=== PATIENT | male | born 1930 | race Caucasian/White ===

== ENCOUNTER 2017-03-21 20:43 | Inpatient (IN) | payer OTHER ==
[~2017-03-21] VITALS: Ht 162.6 cm; Wt 71.0 kg
[~2017-03-21 20:43] MED LIST: ASPI81TA28 PO; AVD5 PO; BIMA0.01 OPL; BRIM0.2S OPB; LOSA1TAB PO; NTRSLP4 SL; PRDFOPS OP; TRSOPS2 OP
--- NOTE | 2017-03-21 22:08 | EMERGENCY ROOM VISIT NOTE ---
History Report prepared by Pio: Tabitha Bolaños Under the Supervision of: Venu ValderramaO. First contact with patient: 21:40 Chief Complaint: ABDOMINAL PAIN Stated Complaint: HURT STOMACH,CONSTIPATION History of Present Illness The patient is an 86 year old male who presents to the Emergency Room with complaints of persistent abdominal pain that began 2 weeks ago. He currently rates his discomfort as a 2/10 in severity. The patient reports that two weeks ago his was taken to reside in a retirement. He states that he became nervous for her leaving, and he developed left chest pain, abdominal pain, and constipation. The patient states that constipation is a chronic problem for him , noting that he takes Miralax daily. He states that he has not had a bowel movement in four days. The patient states that his chest pain has been waxing and waning, noting that aspirin alleviated his symptoms, but nitroglycerin has not. He states that the chest pain has been persistent for two days. The patient reports radiating pain to his left shoulder and notes pain radiating into back. He denies any pain radiating down his left arm. The patient reports nausea today. He reports a cardiac history. The patient denies any fever, chills, shortness of breath or lower extremity swelling. He reports difficulty urinating. Source of History: patient Onset: 2 weeks ago Position: abdomen Symptom Intensity: 2/10 Timing: other (persistent) Associated Symptoms: + chest pain, + nausea, + back pain, + urinary symptoms (difficulty urinating), No fevers, No chills, No SOB Note: Associated Symptoms: left shoulder pain, constipation. Review of Systems See HPI for pertinent positives & negatives. A total of 10 systems reviewed and were otherwise negative. Past Medical & Surgical Medical Problems: (1) Aortic Valve Disorder (2) Diverticulitis (3) Diverticulosis of sigmoid colon (4) Elevated troponin I level (5) Hyperlipidemia (6) Hypertension Nos (7) Hypothyroidism Nos Surgical Problems: (1) Cholecystectomy (2) Hernia repair Family History Patient reports no known family medical history. Social History Smoking Status: Never Smoker Alcohol Use: none Drug Use: none Marital Status: Housing Status: lives with significant other Occupation Status: retired Current/Historical Medications Scheduled Aspirin (Aspirin Ec), 81 MG PO DAILY Bimatoprost (Lumigan), 1 DROPS OPL HS Brimonidine Tartrate-Timolol M (Combigan), 1 DROP OPB BID Dorzolamide Hcl (Trusopt Oph), 1 DROPS OP BID Fluocinonide (Fluocinonide), 1 APPLN TOP BID Losartan Potassium (Cozaar), 1 TAB PO DAILY Polyethylene Glycol 3350 (Miralax), 17 GM PO QPM Polyethylene Glycol-Propylene (Systane), 1 DROPS OP DAILY Prednisolone Acetate (Ophth) (Prednisolone Acetate), 1 DROP OPL QID Prednisolone Acetate (Ophth) (Prednisolone Acetate), 2 DROP OPR DAILY Scheduled PRN Nitroglycerin (Nitrostat), 0.4 MG SL UD PRN for Chest Pain Allergies Coded Allergies: Amlodipine (Verified Allergy, Unknown, unknown, 09/16/16) Enalapril (Verified Allergy, Unknown, unknown, 09/16/16) Sulfa Drugs (Verified Adverse Reaction, Mild, JUST DID NOT FEEL LIKE HIMSELF, 09/16/16) Physical Exam Vital Signs Date Time Temp Pulse Resp B/P (MAP) Pulse Ox O2 Delivery O2 Flow Rate FiO2 03/22/17 02:52 72 16 139/81 98 Room Air 03/21/17 23:16 81 18 145/87 95 Room Air 03/21/17 20:57 36.7 74 20 153/92 95 Room Air Physical Exam GENERAL: alert, well appearing, well nourished, no distress, non-toxic EYE EXAM: normal conjunctiva, PERRL and EOM's grossly intact OROPHARYNX: no exudate, no erythema, lips, buccal mucosa, and tongue normal and mucous membranes are moist NECK: supple, no nuchal rigidity, no adenopathy, non-tender LUNGS: Clear to auscultation. Normal chest wall mechanics HEART: Systolic ejection murmur, S1 normal and S2 normal ABDOMEN: Mild generalized abdominal discomfort, dull to percussion, abdomen soft , normo-active bowel sounds, no masses, no rebound or guarding. BACK: Back is symmetrical on inspection and there is no deformity, no midline tenderness, no CVA tenderness. SKIN: no rashes and no bruising UPPER EXTREMITIES: upper extremities are grossly normal. LOWER EXTREMITIES: Trace pitting edema. NEURO EXAM: Normal sensorium, cranial nerves II-XII grossly intact, normal speech, no gross weakness of arms, no gross weakness of legs. Medical Decision & Procedures ER Provider Diagnostic Interpretation: Chest x-ray interpreted by me, pending radiology review: cardiomegaly, prominent aortic silhouette, no effusion, increased interstitial markings bilaterally, no focal consolidation, similar compared to prior CT abdomen and pelvis: Mild peripancreatic haziness that may be from pancreatitis. No pseudocyst. Cholecystectomy. 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 Syed megaly. Small fat-containing ventral inguinal hernias. Old granulomatous disease. Right renal cyst. 2 small to characterize low attenuation foci in the kidneys. Mildly enlarged prostate. Colonic diverticula without diverticulitis. Unremarkable appendix. radiologist: Ryann Arreola M.D. study read at 00:47 Laboratory Results 03/21/17 23:05 Red Blood Count 4.16, Mean Corpuscular Volume 94.5, Mean Corpuscular Hemoglobin 31.3, Mean Corpuscular Hemoglobin Concent 33.1, Mean Platelet Volume 9.1, Neutrophils (%) (Auto) 74.1, Lymphocytes (%) (Auto) 13.5, Monocytes (%) (Auto) 10.2, Eosinophils (%) (Auto) 1.9, Basophils (%) (Auto) 0.2, Neutrophils # (Auto ) 7.35, Lymphocytes # (Auto) 1.34, Monocytes # (Auto) 1.01, Eosinophils # (Auto ) 0.19, Basophils # (Auto) 0.02 03/21/17 23:05 Test 03/21/17 23:05 03/21/17 23:50 White Blood Count 9.92 K/uL (4.8-10.8) Red Blood Count 4.16 M/uL (4.7-6.1) Hemoglobin 13.0 g/dL (14.0-18.0) Hematocrit 39.3 % (42-52) Mean Corpuscular Volume 94.5 fL (80-100) Mean Corpuscular Hemoglobin 31.3 pg (25-34) Mean Corpuscular Hemoglobin Concent 33.1 g/dl (32-36) Platelet Count 259 K/uL (130-400) Mean Platelet Volume 9.1 fL (7.4-10.4) Neutrophils (%) (Auto) 74.1 % Lymphocytes (%) (Auto) 13.5 % Monocytes (%) (Auto) 10.2 % Eosinophils (%) (Auto) 1.9 % Basophils (%) (Auto) 0.2 % Neutrophils # (Auto) 7.35 K/uL (1.4-6.5) Lymphocytes # (Auto) 1.34 K/uL (1.2-3.4) Monocytes # (Auto) 1.01 K/uL (0.11-0.59) Eosinophils # (Auto) 0.19 K/uL (0-0.5) Basophils # (Auto) 0.02 K/uL (0-0.2) RDW Standard Deviation 41.5 fL (36.4-46.3) RDW Coefficient of Variation 12.1 % (11.5-14.5) Immature Granulocyte % (Auto) 0.1 % Immature Granulocyte # (Auto) 0.01 K/uL (0.00-0.02) Anion Gap 7.0 mmol/L (3-11) Est Creatinine Clear Calc Drug Dose 48.9 ml/min Estimated GFR () 83.2 Estimated GFR (Non- 71.8 BUN/Creatinine Ratio 15.3 (10-20) Lactic Acid Level 0.7 mmol/L (0.4-2.0) Calcium Level 9.0 mg/dl (8.5-10.1) Total Bilirubin 2.6 mg/dl (0.2-1) Aspartate Amino Transf (AST/SGOT) 20 U/L (15-37) Alanine Aminotransferase (ALT/SGPT) 21 U/L (12-78) Alkaline Phosphatase 62 U/L (45-117) Total Protein 6.9 gm/dl (6.4-8.2) Albumin 3.8 gm/dl (3.4-5.0) Globulin 3.1 gm/dl (2.5-4.0) Albumin/Globulin Ratio 1.2 (0.9-2) Lipase 2575 U/L (73-393) Urine Color YELLOW Urine Appearance CLEAR (CLEAR) Urine pH 6.0 (4.5-7.5) Urine Specific [place] 1.009 (1.000-1.030) Urine Protein NEG (NEG) Urine Glucose (UA) NEG (NEG) Urine Ketones NEG (NEG) Urine Occult Blood NEG (NEG) Urine Nitrite NEG (NEG) Urine Bilirubin NEG (NEG) Urine Urobilinogen NEG (NEG) Urine Leukocyte Esterase NEG (NEG) Laboratory results per my review. Medications Administered Medications (Trade) Dose Ordered Sig/Marily Route Start Time Stop Time Status Last Admin Dose Admin Sodium Chloride 1,000 ml @ 200 mls/hr Q5H STAT IV 03/21/17 23:44 03/22/17 04:24 DC 03/21/17 23:44 200 MLS/HR ECG Indication: chest pain Rate (beats per minute): 57 Rhythm: sinus bradycardia Findings: 1st degree AV block, LBBB, no acute ischemic change, left axis deviation Comparison ECG Date: 09/17/16 Change: When compared to EKG done on 09/17/16, QRS has widened, but no change in morphology. ED Course 2144: The patient was evaluated in room C11B. A complete history and physical exam was performed. 0150: Patient resting comfortably, made aware of all results. Patient denies any recent alcohol use, states his gallbladder was previously removed. Patient agreeable with plan for admission. Medical Decision Differential diagnoses includes but is not limited to acute coronary syndrome, myocardial infarction, pericarditis, pulmonary embolus, aortic dissection, pneumonia, pneumothorax, musculoskeletal, shingles, esophageal, gastritis, peptic ulcer disease, GERD, gallbladder disease, pancreatitis, small bowel obstruction, ischemic bowel, irritable bowel disease, irritable bowel syndrome, appendicitis, diverticulitis, malignancy, hernia, urinary tract infection, torsion, perforation, trauma, infectious. Medication Reconciliation: I attest that I have personally reviewed the patient' s current medication list. Blood pressure screening: Patient was found to have an elevated blood pressure and was referred to their primary doctor for recheck and further treatment. Patient with atypical presentation for both abdominal discomfort as well as chest pain. Patient with significant prior cardiac history and previously left AGAINST MEDICAL ADVICE while having active ACS. Patient resting here, stable vital signs, and only mild discomfort noted during exam. Patient found to have significant elevated lipase and evidence of pancreatitis by CT. Patient has had prior cholecystectomy and denies any recent alcohol use. Patient was agreeable with admission for continued monitoring and treatment. No evidence of ACS at this time. Likely slight EKG abnormalities related to prior ACS that was not treated. Doubt additional vascular/aortic pathology. Doubt PE or pulmonary pathology. No evidence of perforation or GI bleed. Patient felt pain controlled here and didn't denied any additional medications. Patient aware of all results. Impression Primary Impression: GENERALIZED ABDOMINAL PAIN Additional Impressions: Pancreatitis Chest pain Scribe Attestation The scribe's documentation has been prepared under my direction and personally reviewed by me in its entirety. I confirm that the note above accurately reflects all work, treatment, procedures, and medical decision making performed by me. Departure Information Referrals RV. Ulloa MD (PCP) Patient Instructions [facility] Problem Qualifiers Additional Impressions: Pancreatitis Chronicity: acute Pancreatitis type: unspecified pancreatitis type Acute pancreatitis complication: no infection or necrosis Qualified Codes: K85.90 - Acute pancreatitis without necrosis or infection, unspecified Chest pain Chest pain type: unspecified Qualified Codes: R07.9 - Chest pain, unspecified
[2017-03-21] MEDS ORDERED: PRED1SUS17 OPR (22:24)
[2017-03-21] MEDS ORDERED: POLY335019 PO (22:24)
[2017-03-21] MEDS ORDERED: PRED1SUS17 OPL (22:24)
[2017-03-21] MEDS ORDERED: FLUO0.0566 TOP (22:24)
[2017-03-21] MEDS ORDERED: POLYSOL4 OP (22:24)
[2017-03-21] MEDS ORDERED: DORZ2SOL17 OP (22:25)
[2017-03-21 23:18] LABS: BASO % 0.2 %; BASO ABS # 0.02 K/uL (0-0.2); COMPLETE YES; EOS % 1.9 %; HEMATOCRIT 39.3 % (42-52); IG% 0.1 %; LYMPH % 13.5 %; LYMPH ABS # 1.34 K/uL (1.2-3.4); MEAN CELL VOLUME 94.5 fL (80-100); MEAN CORPUSCULAR HEMOGLOBIN 31.3 pg (25-34); MEAN CORPUSCULAR HGB CONC 33.1 g/dl (32-36); MEAN PLATELET VOLUME 9.1 fL (7.4-10.4); MONO % 10.2 %; NEUT % 74.1 %; PLATELET COUNT 259 K/uL (130-400); RED BLOOD COUNT 4.16 M/uL (4.7-6.1); WHITE BLOOD COUNT 9.92 K/uL (4.8-10.8)
[2017-03-21 23:35] LABS: BUN/CREATININE RATIO 15.3 (10-20); CREATININE 0.96 mg/dl (0.60-1.40); POTASSIUM 3.7 mmol/L (3.5-5.1)
[2017-03-21 23:40] LABS: ALB/GLOB RATIO 1.2 (0.9-2)
[2017-03-21] MEDS ORDERED: SODIUM CHLORIDE 0.9% 1000ML 1,000 ML IV STA (23:44)
[2017-03-22] MEDS ORDERED: OPTIRAY 320 IV PRN
[2017-03-22 00:12] LABS: URINE APPEARANCE CLEAR (CLEAR); URINE BILIRUBIN NEG (NEG); URINE COLOR YELLOW; URINE NITRITE NEG (NEG); URINE SPECIFIC GRAVITY 1.009 (1.000-1.030); UROBILINOGEN NEG (NEG); ZZUR CULT IF INDIC CLEAN CATCH NO
[2017-03-22 00:15] LABS: MANUAL MICROSCOPIC REQUIRED? NO; REVIEW REQ? NO
[2017-03-22] MEDS ORDERED: ONDANSETRON INJ 2 MG/ML 2 ML VIAL IV PRN (03:00)
[2017-03-22] MEDS ORDERED: ACETAMINOPHEN 325 MG TAB PO PRN (03:00)
[2017-03-22] MEDS ORDERED: NITROGLYCERIN 0.4 MG SL PER TAB CHARGE SL PRN ×2 (03:00)
[2017-03-22] MEDS ORDERED: ZOLPIDEM TARTRATE 5 MG TAB PO PRN (03:00)
[2017-03-22] MEDS ORDERED: IV FLUIDS COMPLETED PRN (03:15)
--- NOTE | 2017-03-22 03:34 | History and Physical ---
History & Physical Date & Time of Service: Mar 22, 2017 at 03:22 Chief Complaint: Hurt Stomach,Constipation Primary Care Physician: RV. Ulloa MD History of Present Illness Source: patient, hospital records The patient is a 86-year-old male who presents to emergency department with symptoms of abdominal pain that began about 2 weeks ago, and more recently over the past 2 days has developed chest pain radiating to his left shoulder and toward his back. He does have a known history of heart disease. He does report that aspirin has helped to relieve his chest discomfort, but nitroglycerin sublinguals have not. He presently is under stress due to the illness of his who was moved to a [place] [facility] facility 2 weeks ago. He does have chronic constipation for which MiraLAX helps, but he has not had a bowel movement in 4 days. He has chronic difficulty urinating. Past Medical/Surgical History Medical Problems: (1) Aortic Valve Disorder Status: Chronic (2) Diverticulitis Status: Chronic (3) Diverticulosis of sigmoid colon Status: Resolved (4) Hyperlipidemia Status: Chronic (5) Hypertension Nos Status: Chronic (6) Hypothyroidism Nos Status: Chronic Surgical Problems: (1) Cholecystectomy Status: Resolved (2) Hernia repair Status: Resolved Family History Patient reports no known family medical history. Social History Smoking Status: Never Smoker Smokeless Tobacco Use: No Alcohol Use: none Drug Use: none Marital Status: Housing status: lives with family Occupational Status: retired Immunizations History of Influenza Vaccine: No History of Tetanus Vaccine?: No History of Pneumococcal: No History of Hepatitis B Vaccine: No Multi-Drug Resistant Organisms History of MDRO: No Allergies Coded Allergies: Amlodipine (Verified Allergy, Unknown, unknown, 09/16/16) Enalapril (Verified Allergy, Unknown, unknown, 09/16/16) Sulfa Drugs (Verified Adverse Reaction, Mild, JUST DID NOT FEEL LIKE HIMSELF, 09/16/16) Home Medications Scheduled Aspirin (Aspirin Ec), 81 MG PO DAILY Bimatoprost (Lumigan), 1 DROPS OPL HS Brimonidine Tartrate-Timolol M (Combigan), 1 DROP OPB BID Dorzolamide Hcl (Trusopt Oph), 1 DROPS OP BID Fluocinonide (Fluocinonide), 1 APPLN TOP BID Losartan Potassium (Cozaar), 1 TAB PO DAILY Polyethylene Glycol 3350 (Miralax), 17 GM PO QPM Polyethylene Glycol-Propylene (Systane), 1 DROPS OP DAILY Prednisolone Acetate (Ophth) (Prednisolone Acetate), 1 DROP OPL QID Prednisolone Acetate (Ophth) (Prednisolone Acetate), 2 DROP OPR DAILY Scheduled PRN Nitroglycerin (Nitrostat), 0.4 MG SL UD PRN for Chest Pain Review of Systems The patient denies cough, lower extremity swelling, sore throat, fevers, chills , sweats, weight change, vomiting, pelvic pain, blood in urine or stool, lightheadedness, dizziness, headache, memory loss, rash, abnormal bruising or bleeding, imbalance, focal or generalized weakness, numbness or tingling in arms or legs, night sweats. The review of systems is otherwise negative other than for that already noted above, and at least 10 systems have been reviewed. Physical Exam Vital Signs Date Time Temp Pulse Resp B/P (MAP) Pulse Ox O2 Delivery O2 Flow Rate FiO2 03/22/17 02:52 72 16 139/81 98 Room Air 03/21/17 23:16 81 18 145/87 95 Room Air 03/21/17 20:57 36.7 74 20 153/92 95 Room Air The patient is awake, well-developed and adequately nourished, alert and oriented 3, normocephalic and atraumatic, lying in bed and in no acute distress. HEENT--PERRL, EOMI, mucous membranes and oropharynx dry. Neck--supple, no JVD or bruits, thyroid normal, trachea midline, no adenopathy. Heart--normal S1 and S2, no extra beats, no murmurs, rubs or gallops. Lungs--clear bilaterally with good air movement, no respiratory distress, no accessory muscle use. Abdomen--normal bowel sounds and soft, nontender and nondistended, no hernias or masses, no organomegaly. Extremities--no cyanosis, clubbing or edema. There are good distal pulses b/l. Dermatologic--normal skin turgor, normal color, warm and dry, no abnormal lymph nodes, no rash. Neurologic--cranial nerves II through XII grossly intact, motor and sensory examination normal. Rheumatologic--normal range of motion, nontender, muscles and joints. Psychiatric--normal affect. Diagnostics Laboratory Results Results Past 24 Hours Test 6/26/17 23:05 03/21/17 23:50 Range/Units White Blood Count 9.92 4.8-10.8 K/uL Red Blood Count 4.16 4.7-6.1 M/uL Hemoglobin 13.0 14.0-18.0 g/dL Hematocrit 39.3 42-52 % Mean Corpuscular Volume 94.5 80-100 fL Mean Corpuscular Hemoglobin 31.3 25-34 pg Mean Corpuscular Hemoglobin Concent 33.1 32-36 g/dl Platelet Count 259 130-400 K/uL Mean Platelet Volume 9.1 7.4-10.4 fL Neutrophils (%) (Auto) 74.1 % Lymphocytes (%) (Auto) 13.5 % Monocytes (%) (Auto) 10.2 % Eosinophils (%) (Auto) 1.9 % Basophils (%) (Auto) 0.2 % Neutrophils # (Auto) 7.35 1.4-6.5 K/uL Lymphocytes # (Auto) 1.34 1.2-3.4 K/uL Monocytes # (Auto) 1.01 0.11-0.59 K/uL Eosinophils # (Auto) 0.19 0-0.5 K/uL Basophils # (Auto) 0.02 0-0.2 K/uL RDW Standard Deviation 41.5 36.4-46.3 fL RDW Coefficient of Variation 12.1 11.5-14.5 % Immature Granulocyte % (Auto) 0.1 % Immature Granulocyte # (Auto) 0.01 0.00-0.02 K/uL Sodium Level 140 136-145 mmol/L Potassium Level 3.7 3.5-5.1 mmol/L Chloride Level 108 98-107 mmol/L Carbon Dioxide Level 25 21-32 mmol/L Anion Gap 7.0 3-11 mmol/L Blood Urea Nitrogen 15 7-18 mg/dl Creatinine 0.96 0.60-1.40 mg/dl Est Creatinine Clear Calc Drug Dose 48.9 ml/min Estimated GFR () 83.2 Estimated GFR (Non- 71.8 BUN/Creatinine Ratio 15.3 10-20 Random Glucose 98 70-99 mg/dl Lactic Acid Level 0.7 0.4-2.0 mmol/L Calcium Level 9.0 8.5-10.1 mg/dl Total Bilirubin 2.6 0.2-1 mg/dl Aspartate Amino Transf (AST/SGOT) 20 15-37 U/L Alanine Aminotransferase (ALT/SGPT) 21 12-78 U/L Alkaline Phosphatase 62 45-117 U/L Troponin I 0.018 0-0.045 ng/ml Total Protein 6.9 6.4-8.2 gm/dl Albumin 3.8 3.4-5.0 gm/dl Globulin 3.1 2.5-4.0 gm/dl Albumin/Globulin Ratio 1.2 0.9-2 Lipase 2575 73-393 U/L Urine Color YELLOW Urine Appearance CLEAR CLEAR Urine pH 6.0 4.5-7.5 Urine Specific [place] 1.009 1.000-1.030 Urine Protein NEG NEG Urine Glucose (UA) NEG NEG Urine Ketones NEG NEG Urine Occult Blood NEG NEG Urine Nitrite NEG NEG Urine Bilirubin NEG NEG Urine Urobilinogen NEG NEG Urine Leukocyte Esterase NEG NEG EKG EKG shows sinus bradycardia at 57 beats minute, with first-degree heart block, left axis deviation, LVH, question new LAFB with QRS widening, which is new compared to August 2016. Impression Assessment and Plan Chest pain/new EKG changes--the patient be admitted to the telemetry unit for serial cardiac enzymes, cardiac rhythm monitoring and a 2-D echocardiogram with Dopplers. We'll continue aspirin 81 mg by mouth daily and losartan. We'll consult cardiology. Pancreatitis--lipase is elevated at 2575. We'll follow serial laboratories, keep on a full liquid diet. Glaucoma--continue usual medications of Lumigan, Combigan, Trusopt, prednisolone acetate and Systane. Constipation--continue MiraLAX daily. Level of Care Telemetry Advanced Directives Existing Advance Directive: No Existing Living Will: No Existing Power of Hair Baler: No Resuscitation Status FULL RESUSCITATION VTE Prophylaxis VTE Risk Assessment Done? Y/N: Yes Risk Level: Low Given or contraindicated: SCD's
[2017-03-22 04:00] VITALS: BP 167/79; PULSE 54; TEMP 36.7; O2SAT 99; Ht 162.6 cm; Wt 71.0 kg
[2017-03-22] MEDS: NSS + 20MEQ KCL 1000ML 1,000 ML IV SCH ×2 (04:58→16:33)
[2017-03-22] MEDS: ARTIFICIAL TEARS OP SOLN OP SCH ×6 (04:58→09:12)
[2017-03-22 07:20] VITALS: BP 149/87; PULSE 62; TEMP 36.7; O2SAT 94
--- NOTE | 2017-03-22 07:32 | DIAGNOSTIC IMAGING REPORT ---
CT OF THE ABDOMEN AND PELVIS WITH CONTRAST CLINICAL HISTORY: Pancreatitis. COMPARISON STUDY: CT of the abdomen and pelvis May 27, 2013 and MRCP May 29, 2013 TECHNIQUE: Following IV administration of 117 mL of Optiray-320, axial images of the abdomen and pelvis were obtained from the lung bases to the proximal femurs. Images were reviewed in the axial, sagittal, and coronal planes. IV contrast was administered without complication. CT DOSE: 350.96 mGy.cm FINDINGS: Visual portions of the lower chest demonstrate aneurysmal dilatation of visualized portions of the ascending aorta which measures approximately 5.5 cm at the level of the main pulmonary artery. This is partially imaged on this exam but likely mildly increased since exam of July 28, 2007 when it measured 5.2 cm. No dissection is shown within visualized portions of the aorta. The abdominal aorta is ectatic with moderate plaque. The liver, spleen and adrenal glands are unremarkable. There is no biliary ductal dilatation status post cholecystectomy. There is mild peripancreatic infiltration and fluid. There is no peripancreatic fluid collection. There is no pancreatic ductal dilatation. Several water attenuation bilateral renal lesions reflect cysts. A few subcentimeter renal lesions are too small to characterize. There is no evidence for a bowel obstruction. The appendix is normal. This extensive colonic diverticulosis without evidence for acute diverticulitis. There are fat-containing bilateral inguinal hernias and fat-containing ventral hernia. The prostate is moderately enlarged. IMPRESSION: 1. Mild peripancreatic infiltration and fluid suggestive of acute pancreatitis. No biliary ductal dilatation status post cholecystectomy. 2. Aneurysmal dilatation of the ascending aorta, partially imaged on this exam. Aorta measures approximately 5.5 cm at the level of the main pulmonary artery which is mildly increased since CT of July 28, 2007. 3. Moderate cardiomegaly. 4. Left colon diverticulosis without evidence for acute diverticulitis. Electronically signed by: Diomedes Vela M.D. 03/22/2017 7:31 AM Dictated Date/Time: 03/22/2017 7:20 AM
[2017-03-22] MEDS: DORZOLAMIDE HCL 2% OPH SOLN 10 ML BTL OP SCH ×2 (07:46→09:13)
[2017-03-22] MEDS: ASPIRIN 81 MG ECTAB PO SCH (07:46)
[2017-03-22] MEDS: LOSARTAN POTASSIUM 25 MG TAB PO SCH (07:47)
[2017-03-22] MEDS: POLYETHYLENE (MIRALAX) 17 GM PACK PO SCH (07:47)
--- NOTE | 2017-03-22 07:55 | DIAGNOSTIC IMAGING REPORT ---
PA CHEST WITH ABDOMINAL SERIES CLINICAL HISTORY: Generalized abdominal pain. Left-sided chest pain. FINDINGS: A PA chest radiograph is compared to study dated 09/16/2016. The examination is degraded by patient rotation. The heart is enlarged and there is atherosclerotic calcification with uncoiling of the thoracic aorta. The pulmonary vasculature is noncongested. Chronic interstitial thickening is unchanged. No airspace consolidation, large pleural effusion, or pneumothorax is seen. The skeletal structures are osteopenic. Degenerative change and scoliosis are noted in the thoracic spine. Supine and erect abdominal radiographs are correlated with abdominal CT dated 05/27/2013. There is a nonobstructed abdominal bowel gas pattern noting moderate colonic fecal retention. No evidence of intraperitoneal free air is seen. Cholecystectomy clips are identified. Pelvic phleboliths are observed. There is moderate lumbar sacral spondylosis and scoliosis. The bony pelvis appears intact. IMPRESSION: 1. Cardiomegaly with no acute cardiopulmonary abnormality. 2. Nonobstructed abdominal bowel gas pattern noting moderate colonic fecal retention. Electronically signed by: Gerber Leigh M.D. 03/22/2017 7:54 AM Dictated Date/Time: 03/22/2017 7:51 AM
[2017-03-22] MEDS ORDERED: NON-FORMULARY MEDICATION (Brimonidine Tartrate-Timolol M (Combigan) 1 DROP) OPB SCH (09:00)
[2017-03-22] MEDS ORDERED: MoRPHine SULFATE 2 MG/ML CARP IV PRN (09:00)
[2017-03-22] MEDS ORDERED: LORAZEPAM 2 MG/ML 1 ML VIAL IV PRN ×2 (09:00→18:00)
[2017-03-22] MEDS ORDERED: NON-FORMULARY MEDICATION (Fluocinonide 1 APPLN) TOP SCH (09:00)
[2017-03-22] MEDS ORDERED: PrednisoLONE ACET 1% OP SUSP 5 ML BTL OPR SCH (09:00)
[2017-03-22 11:33] VITALS: BP 118/70; PULSE 45; TEMP 36.5; O2SAT 97
[2017-03-22 11:44] LABS: CKMB/CK RATIO 3.8 (0-3.0)
--- NOTE | 2017-03-22 12:33 | Hospitalist Progress Note ---
Hospitalist Progress Note Date of Service Mar 22, 2017. (Citlaly Madera ., PA-C) Subjective Pt evaluation today including: conversation w/ patient, conversation w/ family (daughter- at bedside ), physical exam, chart review, lab review, review of studies, review of inpatient medication list Voiding: no voiding problems, no incontinence Patient states he is currently feeling comfortable. Admits to epigastric region pain- IV Morphine w/ good pain control. Decreased appetite- currently on full liquids. +Constipation +Intermittent left sided CP radiating to left shoulder region. Denies any alleviating/exacerbation factors. Patient denies any fever, chills, sweats, lightheadedness, dizziness, vision changes, palpitations, edema, SOB, wheezing, cough, nausea, vomiting, diarrhea, urinary symptoms, melena, numbness/tingling, weakness, muscle/joint pain, anxiety/depression, active bleeding, or new skin discoloration/changes. Daughter at bedside- she is concerned about patient returning home as he lives alone. His is currently on hospice and staying with the daughter so most of her time is occupied. All other questions/concerns answered. (Citlaly Madera ., PA-C) Medications Current Inpatient Medications Medications (Trade) Dose Ordered Sig/Marily Route Start Time Stop Time Status Last Admin Dose Admin Ioversol (Optiray 320) 100 ml UD PRN IV 03/22/17 00:00 03/26/17 00:00 Aspirin (Ecotrin Tab) 81 mg DAILY PO 03/22/17 09:00 04/21/17 08:59 03/22/17 07:46 81 MG Dorzolamide HCl (Trusopt 2% Oph Soln) 1 drops BID OP 03/22/17 09:00 04/21/17 08:59 Losartan Potassium (coZAAR TAB) 25 mg DAILY PO 03/22/17 09:00 04/21/17 08:59 03/22/17 07:47 25 MG Nitroglycerin (Nitrostat Tab) 0.4 mg UD PRN SL 03/22/17 03:00 04/21/17 02:59 Miscellaneous Information (Order Awaiting Action) 1 ea QS N/A 03/22/17 16:00 04/21/17 15:59 Bimatoprost (Lumigan 0.01%) 1 drops HS OPL 03/22/17 21:00 04/21/17 20:59 03/22/17 07:46 1 DROPS Artificial Tears (Artificial Tears) 1 drops DAILY OP 03/22/17 04:30 04/21/17 04:29 03/22/17 04:58 1 DROPS Polyethylene (Miralax Powder Packet) 17 gm DAILY PO 03/22/17 09:00 04/21/17 08:59 03/22/17 07:47 17 GM Miscellaneous (Iv Fluids Completed) 1 ea PRN PRN N/A 03/22/17 03:15 03/22/18 03:14 Potassium Chloride/Sodium Chloride 1,000 ml @ 100 mls/hr Q10H IV 03/22/17 04:30 04/21/17 04:29 03/22/17 04:58 100 MLS/HR Acetaminophen (Tylenol Tab) 650 mg Q4H PRN PO 03/22/17 03:00 04/21/17 02:59 03/22/17 04:10 650 MG Zolpidem Tartrate (Ambien Tab) 5 mg HSZ PRN PO 03/22/17 03:00 04/21/17 02:59 Ondansetron HCl (Zofran Inj) 4 mg Q6H PRN IV 03/22/17 03:00 04/21/17 02:59 Miscellaneous Information (Order Awaiting Action) 1 ea QS N/A 03/22/17 08:00 04/21/17 07:59 Miscellaneous Information (Order Awaiting Action) 1 ea QS N/A 03/22/17 08:00 04/21/17 07:59 Morphine Sulfate (MoRPHine SULFATE INJ) 1 mg Q3H PRN IV 03/22/17 09:00 04/05/17 08:59 03/22/17 10:17 1 MG Lorazepam (Ativan Inj) 1 mg Q4H PRN IV 03/22/17 09:00 04/21/17 08:59 (Citlaly Madera PA-C) Objective Vital Signs Date Time Temp Pulse Resp B/P (MAP) Pulse Ox O2 Delivery O2 Flow Rate FiO2 03/22/17 11:33 36.5 45 16 118/70 (86) 97 Room Air 03/22/17 07:20 36.7 62 20 149/87 (107) 94 Room Air 03/22/17 04:00 36.7 54 20 167/79 99 Room Air 03/22/17 03:31 75 18 137/86 99 03/22/17 02:52 72 16 139/81 98 Room Air 03/21/17 23:16 81 18 145/87 95 Room Air 03/21/17 20:57 36.7 74 20 153/92 95 Room Air (Citlaly Madera, EDMOND-C) Physical Exam General Appearance: no apparent distress Eyes: normal inspection, PERRL ENT: hearing grossly normal Neck: supple Respiratory/Chest: lungs clear, no respiratory distress, no accessory muscle use Cardiovascular: regular rate, rhythm, + systolic murmur Abdomen: normal bowel sounds, soft, + tenderness (epigastric region ) Extremities: no pedal edema, no calf tenderness Neurologic/Psychiatric: alert, normal mood/affect, oriented x 3 Skin: normal color, warm/dry, no rash (Citlaly Madera ., EDMOND-C) Laboratory Results Last 24 Hours Test 03/21/17 23:05 03/21/17 23:50 03/22/17 11:07 White Blood Count 9.92 K/uL Red Blood Count 4.16 M/uL Hemoglobin 13.0 g/dL Hematocrit 39.3 % Mean Corpuscular Volume 94.5 fL Mean Corpuscular Hemoglobin 31.3 pg Mean Corpuscular Hemoglobin Concent 33.1 g/dl Platelet Count 259 K/uL Mean Platelet Volume 9.1 fL Neutrophils (%) (Auto) 74.1 % Lymphocytes (%) (Auto) 13.5 % Monocytes (%) (Auto) 10.2 % Eosinophils (%) (Auto) 1.9 % Basophils (%) (Auto) 0.2 % Neutrophils # (Auto) 7.35 K/uL Lymphocytes # (Auto) 1.34 K/uL Monocytes # (Auto) 1.01 K/uL Eosinophils # (Auto) 0.19 K/uL Basophils # (Auto) 0.02 K/uL RDW Standard Deviation 41.5 fL RDW Coefficient of Variation 12.1 % Immature Granulocyte % (Auto) 0.1 % Immature Granulocyte # (Auto) 0.01 K/uL Sodium Level 140 mmol/L Potassium Level 3.7 mmol/L Chloride Level 108 mmol/L Carbon Dioxide Level 25 mmol/L Anion Gap 7.0 mmol/L Blood Urea Nitrogen 15 mg/dl Creatinine 0.96 mg/dl Est Creatinine Clear Calc Drug Dose 48.9 ml/min Estimated GFR () 83.2 Estimated GFR (Non- 71.8 BUN/Creatinine Ratio 15.3 Random Glucose 98 mg/dl Lactic Acid Level 0.7 mmol/L Calcium Level 9.0 mg/dl Total Bilirubin 2.6 mg/dl Aspartate Amino Transf (AST/SGOT) 20 U/L Alanine Aminotransferase (ALT/SGPT) 21 U/L Alkaline Phosphatase 62 U/L Troponin I 0.018 ng/ml 0.027 ng/ml Total Protein 6.9 gm/dl Albumin 3.8 gm/dl Globulin 3.1 gm/dl Albumin/Globulin Ratio 1.2 Lipase 2575 U/L Urine Color YELLOW Urine Appearance CLEAR Urine pH 6.0 Urine Specific [place] 1.009 Urine Protein NEG Urine Glucose (UA) NEG Urine Ketones NEG Urine Occult Blood NEG Urine Nitrite NEG Urine Bilirubin NEG Urine Urobilinogen NEG Urine Leukocyte Esterase NEG Total Creatine Kinase 52 U/L Creatine Kinase MB 2.0 ng/ml Creatine Kinase MB Ratio 3.8 (Citlaly Madera, MARA) Assessment and Plan The patient is a 86-year-old male who presents to emergency department with symptoms of abdominal pain that began about 2 weeks ago, and more recently over the past 2 days has developed chest pain radiating to his left shoulder and toward his back. He does have a known history of heart disease. He does report that aspirin has helped to relieve his chest discomfort, but nitroglycerin sublinguals have not. He presently is under stress due to the illness of his who was moved to a shelter 2 weeks ago. He does have chronic constipation for which MiraLAX helps, but he has not had a bowel movement in 4 days. He has chronic difficulty urinating. Chest pain and new EKG changes/CAD: - Admit to tele for cardiac monitoring - Trend cardiac enzymes - EKG QAM and PRN CP - ECHO pending - Continue ASA 81 mg daily - Consulted cardiology, appreciate recommendations- follows w/ Dr. Jiménez Severe aortic stenosis- noted: Follows w/ Dr. Jiménez 5.5 cm aortic aneurysm- mildly increased from study in 2006: - Known diagnosis to patient - CTA of chest pending - f/u outpt w/ vascular surgery HTN- CONTROLLED: Continue Losartan 25 mg daily Acute pancreatitis, lipase is elevated at 2575- etiology uncertain (does have a h/o acute pancreatitis in 2012 ?passed CBD stone vs ETOH): - Follow lipase/amylase - IV NS + 20 mEq KCL @ 100 ml/hr - IV Morphine 1 mg q3 hrs PRN and Tylenol 650 mg q4 hrs PRN for pain control - Full liquid diet - Denies recent ETOH use, calcium WNL, no trauma, low probability of infectious cause - Check triglycerides - Elevated total bilirubin, ?CBD stone- follow - If clinically improves w/ supportive care as above, no need for inpatient GI consult- can f/u/ outpt h/o hypercholesterolemia: no medications noted Glaucoma: Continue usual medications of Lumigan, Combigan, Trusopt, Prednisolone acetate, and Systane Constipation: - CT of abdomen- no obstruction - Continue MiraLAX daily -- Per patient, has not taking over the last couple of days, which usually causes him to become constipated- will continue MiraLAX and add additional medications PRN DVT Prophylaxis: TEDs/SCDs Code Status: LEVEL I, FULL Dispo: From home, lives alone- social sciences research scientist consulted - PT/OT evaluations pending - Daughter, Lisseth, would like to be updated daily, # [phone] (Citlaly Madera, MARA) I personally examined pt and verified all lopez points w Vandana Madera PA-C feeling better ate tomato soup no problems no significant abdominal pain or nausea now. notes that he really wants to get home to - she is sick and dying "and could pass any minute" but also wants to make sure he's doing well enough to be able to be home. ROS otherwise negative except for as above vitals noted nad breathing unlabored no pallor or icterus, abd soft maybe mildly tender epigastrum but no guarding/rebound/rigidity acute (recurrent) pancreatitis - no evidence of stones, current TG level pending but prior have not been elevated enough to cause pancreatitis, no obvious/clear/admitted EtOH hx. given situation with and w/u for recurrent pancreatitis being non-urgent - will manage acute episode and then have outpt w/u for recurrent. improving. continue IVF (more gently than nromal for pancreatitis given cardiomyopathy), advance diet, hopefully home in AM cardiomyopathy/EKG changes - suspect baseline, echo noted, nothing appearing acute, await cardiology input as consulted by admitting physician TAA - much like w/u for recurrent pancreatitis, no sx, not appearing dissecting - will ask for outpt vascular eval; for now risk factor modification (will check full lipid panel - from 2014 appears would benefit from statin, but with age will wnat to make sure not suppressing lipids overly); continue to follow BP - low threshold to start beta neal but with age and some BP being low- normal, risk of iatrogenesis is high -- may need ongoing outpt f/u for BP as well to better longitudinally assess risk/benefit of treatment DVT proph - lovenox (Juan David Mccormick D.O.)
--- NOTE | 2017-03-22 13:16 | ECHOCARDIOGRAM REPORT ---
*NOTICE TO RECEIVING LIBERTARIAN AGENCY This information is strictly Confidential and protected under [place] law. [place] law prohibits you from making any further disclosure of this information unless further disclosure is expressly permitted by the written consent of the person to whom it pertains or is authorized by law. A general authorization for the release of medical or other information is not sufficient for this purpose. Hospital accepts no responsibility if the information is made available to any other person, INCLUDING THE PATIENT. Interpretation Summary * Name: NORSI CATALAN Study Date: 03/22/2017 09:39 AM BP: 149/87 mmHg * Patient Location: C.2T\S\S238\S\2 HR: 62 * : 1930 (M/d/yy) Gender: Male Height: 65 in * Age: 86 yrs Ethnicity: CA Weight: 160 lb * Ordering Physician: Jeffrey Cotton * Performed By: Gogo Coronel * * Reason For Study: CHEST PAIN * BSA: 1.8 m2 * Normal biventricular systolic function. * Moderate concentric left ventricular hypertrophy. * Left ventricular diastolic dysfunction. * Trace mitral regurgitation. * Mild aortic regurgitation. * The study was technically difficult. Procedure Details * A complete two-dimensional transthoracic echocardiogram was performed (2D, M-mode, Doppler and color flow Doppler). Left Ventricle * The left ventricle is normal in size. * There is moderate concentric left ventricular hypertrophy. * Ejection Fraction = 60-65%. * Left ventricular systolic function is normal. * A full diastolic examination was done with clinical findings of Class I diastolic dysfunction. * The left ventricular wall motion is normal. Right Ventricle * The right ventricle is normal in size and function. * The right ventricular systolic function is normal as assessed by tricuspid annular plane systolic excursion (TAPSE) (normal >1.5 cm). Atria * The left atrial size is normal. Mitral Valve * The mitral valve is not well visualized. * There is mild mitral annular calcification. * There is no mitral valve stenosis. * There is trace mitral regurgitation. Tricuspid Valve * The tricuspid valve is not well visualized. * Significant tricuspid regurgitation is absent. Aortic Valve * The aortic valve is trileaflet. It is calcified and has decreased opening. * Moderate valvular aortic stenosis. * Mild aortic regurgitation. Pulmonic Valve * The pulmonic valve is not well visualized. * The pulmonary valve is inadequately visualized, but the Doppler data is adequate for interpretation. * There is no pulmonic valvular stenosis. * There is no significant pulmonary regurgitation. Great Vessels * The aortic root is normal size. Pericardium/Pleural * There is no pericardial effusion. Great Vessels * Normal inferior vena cava diameter and respiratory variation suggests normal central venous pressure. MMode 2D Measurements and Calculations IVSd 1.8 cm IVSs 2.3 cm LVIDd 3.7 cm LVIDs 2.5 cm LVPWd 1.7 cm LVPWs 2.4 cm IVS/LVPW 1.1 FS 33.9 % EDV(Teich) 58.5 ml ESV(Teich) 21.3 ml EF(Teich) 63.7 % EDV(cubed) 51.1 ml ESV(cubed) 14.7 ml EF(cubed) 71.2 % % IVS thick 23.9 % % LVPW thick 39.7 % LV mass(C)d 272.2 grams LV mass(C)dI 151.3 grams/m\S\2 LV mass(C)s 283.3 grams LV mass(C)sI 157.5 grams/m\S\2 CO(Teich) 1.8 l/min CI(Teich) 1.0 l/min/m\S\2 SV(Teich) 37.3 ml SI(Teich) 20.7 ml/m\S\2 CO(cubed) 1.8 l/min CI(cubed) 0.99 l/min/m\S\2 SV(cubed) 36.4 ml SI(cubed) 20.2 ml/m\S\2 Ao root diam 3.8 cm Ao root area 11.3 cm\S\2 ACS 0.92 cm LA dimension 3.8 cm asc Aorta Diam 5.0 cm LA/Ao 1.0 LVOT diam 2.1 cm LVOT area 3.4 cm\S\2 LVAd ap4 27.7 cm\S\2 LVLd ap4 7.8 cm EDV(MOD-sp4) 80.0 ml LVAs ap4 15.7 cm\S\2 LVLs ap4 6.6 cm ESV(MOD-sp4) 31.0 ml EF(MOD-sp4) 61.3 % LVAd ap2 28.5 cm\S\2 LVLd ap2 8.2 cm EDV(MOD-sp2) 80.9 ml LVAs ap2 16.4 cm\S\2 LVLs ap2 7.1 cm ESV(MOD-sp2) 30.9 ml EF(MOD-sp2) 61.8 % CO(MOD-sp4) 2.4 l/min CI(MOD-sp4) 1.3 l/min/m\S\2 SV(MOD-sp4) 49.0 ml SI(MOD-sp4) 27.2 ml/m\S\2 CO(MOD-sp2) 2.5 l/min CI(MOD-sp2) 1.4 l/min/m\S\2 SV(MOD-sp2) 50.0 ml SI(MOD-sp2) 27.8 ml/m\S\2 Doppler Measurements and Calculations MV E max katerina 65.0 cm/sec MV A max katerina 145.0 cm/sec MV E/A 0.45 MV dec time 0.24 sec Ao V2 max 310.2 cm/sec Ao max PG 38.5 mmHg Ao max PG (full) 32.1 mmHg Ao V2 mean 208.9 cm/sec Ao mean PG 20.1 mmHg Ao V2 VTI 72.8 cm JENNIFER(V,A) 1.4 cm\S\2 JENNIFER(V,D) 1.4 cm\S\2 AI max katerina 300.0 cm/sec AI max PG 36.0 mmHg AI dec slope 124.9 cm/sec\S\2 AI P1/2t 703.3 msec LV V1 max PG 6.4 mmHg LV V1 max 126.6 cm/sec SV(Ao) 821.4 ml SI(Ao) 456.5 ml/m\S\2 PA V2 max 93.1 cm/sec PA max PG 3.5 mmHg
--- NOTE | 2017-03-22 13:54 | DIAGNOSTIC IMAGING REPORT ---
CT ANGIOGRAPHY OF THE CHEST WITH AND WITHOUT CONTRAST CLINICAL HISTORY: Thoracic aortic aneurysm. Chest pain. TECHNIQUE: Unenhanced and arterial phase imaging of the chest was performed. Injection of 94 cc of Optiray 320 IV was uneventful. Sagittal and coronal reconstructed reviewed as well as maximal intensity projections on an independent 3-D workstation. COMPARISON STUDY: Chest CT July 28, 2007. FINDINGS: There is no intramural hematoma within the thoracic aorta. No dissection of the thoracic aorta is noted. The ascending aorta measures 5.3 cm at the level of the main pulmonary artery. This is minimally increased since CT of July 28, 2007 when it measured 5.2 cm. There is moderate plaque. There is extensive aortic valvular calcification. Aorta measures 4.2 cm at the level of the sinuses of Valsalva. The heart is moderately enlarged. There is no pericardial effusion. There are several calcified subcarinal lymph nodes. Central airways are patent. There is no consolidation to suggest pneumonia. No pneumothorax or pleural effusion is present. Bony thorax is unremarkable. Visualized portions the upper abdomen demonstrate a few right renal cysts and peripancreatic infiltration suggestive of acute pancreatitis which was shown on recent abdominal CT. IMPRESSION: 1. Ascending aortic aneurysm, measuring 5.3 cm. Minimal increase in caliber since exam of July 28, 2007. No dissection. 2. Moderate cardiomegaly. 3. No acute intrathoracic findings. 4. Peripancreatic infiltration indicative of acute pancreatitis, as shown on recent abdominal CT. Electronically signed by: Diomedes Vela M.D. 03/22/2017 1:53 PM Dictated Date/Time: 03/22/2017 1:40 PM
[2017-03-22 16:39] VITALS: BP 132/77; PULSE 61; TEMP 36.8; O2SAT 98
--- NOTE | 2017-03-22 16:47 | Cardiology Consultation ---
Cardiology Consultation Date of Service Mar 22, 2017. Cardiology Consultation Dictation system down. Pt seen, examined, and chart reviewed. Still has severe aortic stenosis, and he still refuses valve replacement surgery. Wants to go home to his who is on Hospice. Will follow.
[2017-03-22 17:08] LABS: CKMB/CK RATIO 3.3 (0-3.0)
[2017-03-22 17:18] LABS: CHOLESTEROL/HDL RATIO 4.5
[2017-03-22 19:27] VITALS: BP 137/78; PULSE 67; TEMP 37.4; O2SAT 95
[2017-03-22] MEDS ORDERED: BIMATOPROST 0.01% OP SOLN 2.5 ML BTL OPL SCH (21:00)
[2017-03-22] MEDS ORDERED: HEPARIN SOD 5000 UNIT/0.5 ML CARP SQ SCH (21:00)
[2017-03-22] MEDS ORDERED: ENOXAPARIN 30 MG/0.3 ML SYR SQ SCH (21:00)
[2017-03-22 22:56] VITALS: BP 128/75; PULSE 63; TEMP 37.3; O2SAT 98
[2017-03-23] MEDS: NSS + 20MEQ KCL 1000ML 1,000 ML IV SCH (00:34)
[2017-03-23 02:48] VITALS: BP 159/78; PULSE 63; TEMP 37.2; O2SAT 94
[2017-03-23 03:53] VITALS: BP 151/84; PULSE 70; TEMP 37.1; O2SAT 94
[2017-03-23 07:19] VITALS: BP 151/82; PULSE 63; TEMP 36.9; O2SAT 93
[2017-03-23 07:36] LABS: BASO % 0.3 %; BASO ABS # 0.02 K/uL (0-0.2); COMPLETE YES; EOS % 4.5 %; HEMATOCRIT 35.4 % (42-52); IG% 0.1 %; LYMPH % 20.5 %; LYMPH ABS # 1.43 K/uL (1.2-3.4); MEAN CELL VOLUME 95.2 fL (80-100); MEAN CORPUSCULAR HGB CONC 33.6 g/dl (32-36); MEAN PLATELET VOLUME 9.7 fL (7.4-10.4); MONO % 12.8 %; NEUT % 61.8 %; PLATELET COUNT 221 K/uL (130-400); RED BLOOD COUNT 3.72 M/uL (4.7-6.1); WHITE BLOOD COUNT 6.96 K/uL (4.8-10.8)
[2017-03-23 08:06] LABS: CALCIUM 8.5 mg/dl (8.5-10.1); CREATININE 0.81 mg/dl (0.60-1.40)
[2017-03-23] MEDS: LOSARTAN POTASSIUM 25 MG TAB PO SCH (08:24)
[2017-03-23] MEDS: POLYETHYLENE (MIRALAX) 17 GM PACK PO SCH (08:24)
[2017-03-23] MEDS: ASPIRIN 81 MG ECTAB PO SCH (08:24)
[2017-03-23] MEDS: DORZOLAMIDE HCL 2% OPH SOLN 10 ML BTL OP SCH (08:29)
[2017-03-23 11:09] VITALS: BP 120/79; PULSE 68; TEMP 36.3; O2SAT 97
--- NOTE | 2017-03-23 11:16 | Cardiology Follow-Up ---
Cardiology Follow-Up Date of Service Mar 23, 2017. Cardiology Follow-Up Subjective The patient is resting comfortably in bed, anxious for hospital discharge. Denies chest pain, dyspnea, and abdominal pain. Objective Blood pressure is 151/82 with a regular pulse of 63. Respiratory rate is 16 and the patient is afebrile 36.9 degrees Celsius. Saturations 93 percent on room air. Neck is supple with delayed and prolonged carotid upstrokes. A transmitted murmurs noted bilaterally. Jugular venous pressure is flat at 90 degrees. Cardiovascular exam reveals a regular rhythm with a 3/6 crescendo decrescendo systolic murmur heard loudest at the base. No diastolic murmurs. Lungs are clear without rales, rhonchi, or wheezes. Abdomen is soft and nontender without bruits. Extremities reveal intact radial artery pulses bilaterally. There is no peripheral edema. Data CBC note hemoglobin of 11.9, hematocrit 35.4, white count 6.9, platelet count [id number]. Electrolytes notice of 141, potassium 4.0, chloride 112, bicarb 20, BUN 10, creatinine 0.8, glucose 72. Telemetry months her is benign Impression and plan 1. Severe aortic stenosis - confirmed on echocardiogram during this hospitalization. He has refused surgery at 2 separate institution is. 2. Nonobstructive coronary artery disease - 50% mid 1st diagonal branch stenosis. He is status post non ST-elevation [place] in August 2016. 3. Hypertension - controlled 4. Moderate LVH 5. Mild aortic insufficiency 6. Acute pancreatitis
--- NOTE | 2017-03-23 11:41 | Cardiology Consultation ---
Cardiology Consultation Date of Service Mar 23, 2017. Cardiology Consultation Pertinent history Mr. Parker is an 86-year-old male well known to me from the outpatient setting. He was admitted on March 21 with acute pancreatitis and a chest pain syndrome. This consultation was ordered to assistance cardiac management. The patient is in his usual state of health until approximately 2 weeks prior to presentation. He began to note mid epigastric discomfort and developed constipation. Two days prior to her presentation, he began to note radiation of his abdominal discomfort to the mid chest and left shoulder. He did not experience some concurrent shortness of breath, nausea, vomiting, or diaphoresis. The patient carries a history of severe aortic stenosis which was diagnosed at the time of the syncopal episode in the June 2014. The patient underwent a cardiac catheterization as a preop evaluation. This revealed a 50% mid 1st diagonal branch stenosis. He eventually was seen at [facility] July 2014 and offered valve replacement surgery. However, the patient refused to proceed at that time. He was then re-evaluated the [facility] in September 2014, was again offered surgery, and again refused. He has not experienced exertional angina pectoris or further episodes of syncope or presyncope. He also denies PND, orthopnea, palpitations, lower extremity edema, and claudication. He was admitted here in August [address] elevation [place]. His troponin I level peaked at 0.077. He refused cardiac catheterization at that time and opted for conservative medical management. The patient has been under a great deal of emotional stress as his was recently hospitalized and discharged to home on hospice care. The patient is anxious to return home to be with his . Past Medical History 1. Nonobstructive coronary artery disease-see above, June 2014 2. Severe aortic stenosis-June 2014 3. Hypertension 4. Moderate left ventricle hypertrophy 5. Hypercholesterolemia 6. Mild aortic insufficiency 7. Non ST elevation [place]-August 2016 8. 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 Cholecystectomy 12. Bilateral inguinal hernia repairs 13. Glaucoma Medications 1. Losartan 25 milligrams daily 2. Aspirin 81 milligrams per day 3. Lovenox 30 milligrams subcu daily 4. Lumigan eyedrops 5. Trusopt eyedrops Social history and lives with his No tobacco or alcohol Family history Noncontributory Physical exam Blood pressure is 140/80 with a regular pulse of 60. Respiratory rate is 16 in the patient is afebrile 36.9 degrees Celsius. Saturations 93 percent on room air. HEENT exam is negative Neck is supple with delayed and prolonged carotid upstrokes. A transmitted murmur is noted bilaterally. There is no jugular venous distention. Cardiovascular exam reveals a regular rhythm with a 3/6 crescendo decrescendo systolic murmur heard loudest at the base. S2 is not audible at the apex. Lungs are clear without rales, rhonchi, or wheezes. Abdomen is soft with some mid epigastric tenderness. Bowel sounds are normal. No bruits. Extremities reveal intact radial artery pulses bilaterally. There is no peripheral edema. Data CBC note hemoglobin of 13.0, hematocrit 39.3, white count 9.9, an appointment of 259,000. Electrolytes noted sodium 140, potassium 3.7, chloride 108, bicarb 25, BUN 15, creatinine 0.96, glucose 98. Lipase was 2005 for 75 on admission, currently 775. Three troponins are normal INRs 1.0 EKG notes sinus bradycardia with a left axis deviation, left ventricle hypertrophy, and poor R-wave progression across the anterior precordium. Impression The patient was admitted with acute pancreatitis and had radiation of his discomfort to his chest and shoulder. Fortunately, his troponin I levels were all normal, and there are no acute EKG changes. Doubt that this represents myocardial ischemia. The patient continues to refuse an operative repair of his severe aortic stenosis. Plan 1. Continue current medications. 2. Review echocardiogram in its entirety 3. Further recommendations depending on his clinical course.
--- NOTE | 2017-03-23 13:06 | Discharge Summary ---
Discharge Summary Date of Service Mar 23, 2017. (Citlaly Madera, MARA) Discharge Summary Admission Date: Mar 22, 2017 at 02:59 Discharge Date: Mar 23, 2017 Discharge Disposition: Home with services Principal Diagnosis: Acute pancreatitis Problems/Secondary Diagnoses: Chest pain and new EKG changes CAD Severe aortic stenosis 5.5 cm aortic aneurysm HTN Acute recurrent pancreatitis h/o hypercholesterolemia Glaucoma Constipation Immunizations: Have You Had Influenza Vaccine: No History of Tetanus Vaccine?: No History of Pneumococcal: No History of Hepatitis B Vaccine: No Procedures: ECHOCARDIOGRAM: Interpretation Summary * Name: NORIS CATALAN Study Date: 03/22/2017 09:39 AM BP: 149/87 mmHg * Patient Location: [facility]\S\38\S\2 HR: 62 * : 1930 (M/d/yyyy) Gender: Male Height: 65 in * Age: 86 yrs Ethnicity: CA Weight: 160 lb * Ordering Physician: Jeffrey Cotton * Performed By: Gogo Coronel * * Reason For Study: CHEST PAIN * BSA: 1.8 m2 * Normal biventricular systolic function. * Moderate concentric left ventricular hypertrophy. * Left ventricular diastolic dysfunction. * Trace mitral regurgitation. * Mild aortic regurgitation. * The study was technically difficult. Procedure Details * A complete two-dimensional transthoracic echocardiogram was performed (2D, M- mode, Doppler and color flow Doppler). Left Ventricle * The left ventricle is normal in size. * There is moderate concentric left ventricular hypertrophy. * Ejection Fraction = 60-65%. * Left ventricular systolic function is normal. * A full diastolic examination was done with clinical findings of Class I diastolic dysfunction. * The left ventricular wall motion is normal. Right Ventricle * The right ventricle is normal in size and function. * The right ventricular systolic function is normal as assessed by tricuspid annular plane systolic excursion (TAPSE) (normal >1.5 cm). Atria * The left atrial size is normal. Mitral Valve * The mitral valve is not well visualized. * There is mild mitral annular calcification. * There is no mitral valve stenosis. * There is trace mitral regurgitation. Tricuspid Valve * The tricuspid valve is not well visualized. * Significant tricuspid regurgitation is absent. Aortic Valve * The aortic valve is trileaflet. It is calcified and has decreased opening. * Moderate valvular aortic stenosis. * Mild aortic regurgitation. Pulmonic Valve * The pulmonic valve is not well visualized. * The pulmonary valve is inadequately visualized, but the Doppler data is adequate for interpretation. * There is no pulmonic valvular stenosis. * There is no significant pulmonary regurgitation. Great Vessels * The aortic root is normal size. Pericardium/Pleural * There is no pericardial effusion. Great Vessels * Normal inferior vena cava diameter and respiratory variation suggests normal central venous pressure. MMode 2D Measurements and Calculations IVSd 1.8 cm IVSs 2.3 cm LVIDd 3.7 cm LVIDs 2.5 cm LVPWd 1.7 cm LVPWs 2.4 cm IVS/LVPW 1.1 FS 33.9 % EDV(Teich) 58.5 ml ESV(Teich) 21.3 ml EF(Teich) 63.7 % EDV(cubed) 51.1 ml ESV(cubed) 14.7 ml EF(cubed) 71.2 % % IVS thick 23.9 % % LVPW thick 39.7 % LV mass(C)d 272.2 grams LV mass(C)dI 151.3 grams/m\S\2 LV mass(C)s 283.3 grams LV mass(C)sI 157.5 grams/m\S\2 CO(Teich) 1.8 l/min CI(Teich) 1.0 l/min/m\S\2 SV(Teich) 37.3 ml SI(Teich) 20.7 ml/m\S\2 CO(cubed) 1.8 l/min CI(cubed) 0.99 l/min/m\S\2 SV(cubed) 36.4 ml SI(cubed) 20.2 ml/m\S\2 Ao root diam 3.8 cm Ao root area 11.3 cm\S\2 ACS 0.92 cm LA dimension 3.8 cm asc Aorta Diam 5.0 cm LA/Ao 1.0 LVOT diam 2.1 cm LVOT area 3.4 cm\S\2 LVAd ap4 27.7 cm\S\2 LVLd ap4 7.8 cm EDV(MOD-sp4) 80.0 ml LVAs ap4 15.7 cm\S\2 LVLs ap4 6.6 cm ESV(MOD-sp4) 31.0 ml EF(MOD-sp4) 61.3 % LVAd ap2 28.5 cm\S\2 LVLd ap2 8.2 cm EDV(MOD-sp2) 80.9 ml LVAs ap2 16.4 cm\S\2 LVLs ap2 7.1 cm ESV(MOD-sp2) 30.9 ml EF(MOD-sp2) 61.8 % CO(MOD-sp4) 2.4 l/min CI(MOD-sp4) 1.3 l/min/m\S\2 SV(MOD-sp4) 49.0 ml SI(MOD-sp4) 27.2 ml/m\S\2 CO(MOD-sp2) 2.5 l/min CI(MOD-sp2) 1.4 l/min/m\S\2 SV(MOD-sp2) 50.0 ml SI(MOD-sp2) 27.8 ml/m\S\2 Doppler Measurements and Calculations MV E max katerina 65.0 cm/sec MV A max katerina 145.0 cm/sec MV E/A 0.45 MV dec time 0.24 sec Ao V2 max 310.2 cm/sec Ao max PG 38.5 mmHg Ao max PG (full) 32.1 mmHg Ao V2 mean 208.9 cm/sec Ao mean PG 20.1 mmHg Ao V2 VTI 72.8 cm JENNIFER(V,A) 1.4 cm\S\2 JENNIFER(V,D) 1.4 cm\S\2 AI max katerina 300.0 cm/sec AI max PG 36.0 mmHg AI dec slope 124.9 cm/sec\S\2 AI P1/2t 703.3 msec LV V1 max PG 6.4 mmHg LV V1 max 126.6 cm/sec SV(Ao) 821.4 ml SI(Ao) 456.5 ml/m\S\2 PA V2 max 93.1 cm/sec PA max PG 3.5 mmHg Created: Initialized: 03/22/17; 1316 <Electronically signed by Gerardo Flood M.D.> Signed: 03/22/17 2001 Gerardo Flood M.D. The status of this report is Signed. Draft = Not yet reviewed or approved by Account Manager B2B. Signed = Reviewed and approved by Account Manager B2B. PA CHEST WITH ABDOMINAL SERIES CLINICAL HISTORY: Generalized abdominal pain. Left-sided chest pain. FINDINGS: A PA chest radiograph is compared to study dated 09/16/2016. The examination is degraded by patient rotation. The heart is enlarged and there is atherosclerotic calcification with uncoiling of the thoracic aorta. The pulmonary vasculature is noncongested. Chronic interstitial thickening is unchanged. No airspace consolidation, large pleural effusion, or pneumothorax is seen. The skeletal structures are osteopenic. Degenerative change and scoliosis are noted in the thoracic spine. Supine and erect abdominal radiographs are correlated with abdominal CT dated 05/27/2013. There is a nonobstructed abdominal bowel gas pattern noting moderate colonic fecal retention. No evidence of intraperitoneal free air is seen. Cholecystectomy clips are identified. Pelvic phleboliths are observed. There is moderate lumbar sacral spondylosis and scoliosis. The bony pelvis appears intact. IMPRESSION: 1. Cardiomegaly with no acute cardiopulmonary abnormality. 2. Nonobstructed abdominal bowel gas pattern noting moderate colonic fecal retention. Electronically signed by: Gerber Leigh M.D. 03/22/2017 7:54 AM Dictated Date/Time: 03/22/2017 7:51 AM The status of this report is Signed. Draft = Not yet reviewed or approved by Radiologist. Signed = Reviewed and approved by Radiologist. CT OF THE ABDOMEN AND PELVIS WITH CONTRAST CLINICAL HISTORY: Pancreatitis. COMPARISON STUDY: CT of the abdomen and pelvis May 27, 2013 and MRCP May 29, 2013 TECHNIQUE: Following IV administration of 117 mL of Optiray-320, axial images of the abdomen and pelvis were obtained from the lung bases to the proximal femurs. Images were reviewed in the axial, sagittal, and coronal planes. IV contrast was administered without complication. CT DOSE: 350.96 mGy.cm FINDINGS: Visual portions of the lower chest demonstrate aneurysmal dilatation of visualized portions of the ascending aorta which measures approximately 5.5 cm at the level of the main pulmonary artery. This is partially imaged on this exam but likely mildly increased since exam of July 28, 2007 when it measured 5.2 cm. No dissection is shown within visualized portions of the aorta. The abdominal aorta is ectatic with moderate plaque. The liver, spleen and adrenal glands are unremarkable. There is no biliary ductal dilatation status post cholecystectomy. There is mild peripancreatic infiltration and fluid. There is no peripancreatic fluid collection. There is no pancreatic ductal dilatation. Several water attenuation bilateral renal lesions reflect cysts. A few subcentimeter renal lesions are too small to characterize. There is no evidence for a bowel obstruction. The appendix is normal. This extensive colonic diverticulosis without evidence for acute diverticulitis. There are fat-containing bilateral inguinal hernias and fat-containing ventral hernia. The prostate is moderately enlarged. IMPRESSION: 1. Mild peripancreatic infiltration and fluid suggestive of acute pancreatitis. No biliary ductal dilatation status post cholecystectomy. 2. Aneurysmal dilatation of the ascending aorta, partially imaged on this exam. Aorta measures approximately 5.5 cm at the level of the main pulmonary artery which is mildly increased since CT of July 28, 2007. 3. Moderate cardiomegaly. 4. Left colon diverticulosis without evidence for acute diverticulitis. Electronically signed by: Diomedes Vela M.D. 03/22/2017 7:31 AM Dictated Date/Time: 03/22/2017 7:20 AM The status of this report is Signed. Draft = Not yet reviewed or approved by Radiologist. Signed = Reviewed and approved by Radiologist. CT ANGIOGRAPHY OF THE CHEST WITH AND WITHOUT CONTRAST CLINICAL HISTORY: Thoracic aortic aneurysm. Chest pain. TECHNIQUE: Unenhanced and arterial phase imaging of the chest was performed. Injection of 94 cc of Optiray 320 IV was uneventful. Sagittal and coronal reconstructed reviewed as well as maximal intensity projections on an independent 3-D workstation. COMPARISON STUDY: Chest CT July 28, 2007. FINDINGS: There is no intramural hematoma within the thoracic aorta. No dissection of the thoracic aorta is noted. The ascending aorta measures 5.3 cm at the level of the main pulmonary artery. This is minimally increased since CT of July 28, 2007 when it measured 5.2 cm. There is moderate plaque. There is extensive aortic valvular calcification. Aorta measures 4.2 cm at the level of the sinuses of Valsalva. The heart is moderately enlarged. There is no pericardial effusion. There are several calcified subcarinal lymph nodes. Central airways are patent. There is no consolidation to suggest pneumonia. No pneumothorax or pleural effusion is present. Bony thorax is unremarkable. Visualized portions the upper abdomen demonstrate a few right renal cysts and peripancreatic infiltration suggestive of acute pancreatitis which was shown on recent abdominal CT. IMPRESSION: 1. Ascending aortic aneurysm, measuring 5.3 cm. Minimal increase in caliber since exam of July 28, 2007. No dissection. 2. Moderate cardiomegaly. 3. No acute intrathoracic findings. 4. Peripancreatic infiltration indicative of acute pancreatitis, as shown on recent abdominal CT. Electronically signed by: Diomedes Vela M.D. 03/22/2017 1:53 PM Dictated Date/Time: 03/22/2017 1:40 PM The status of this report is Signed. Draft = Not yet reviewed or approved by Radiologist. Signed = Reviewed and approved by Radiologist. Consultations: Cardiology (Citlaly Madera, MARA) Medication Reconciliation Continued Medications: Aspirin (Aspirin Ec) 81 Mg Tab 81 MG PO DAILY for 30 Days Bimatoprost (Lumigan) 0.01 % Adriana 1 DROPS OPL HS for 90 Days, #7.5 ML 3 Refills Brimonidine Tartrate-Timolol M (Combigan) 1 Adriana Adriana 1 DROP OPB BID Dorzolamide Hcl (Trusopt Oph) 2 % Adriana 1 DROPS OP BID, #10 ML 3 Refills Fluocinonide (Fluocinonide) 0.05 % Adriana 1 APPLN TOP BID for 30 Days, #60 ML 2 Refills Losartan Potassium (Cozaar) 25 Mg Tab 1 TAB PO DAILY for 30 Days, #30 TAB 5 Refills Nitroglycerin (Nitrostat) 0.4 Mg/1 Tab Subl 0.4 MG SL UD PRN for Chest Pain for 30 Days Polyethylene Glycol 3350 (Miralax) 1 Pow Pow 17 GM PO QPM Polyethylene Glycol-Propylene (Systane) 1 Adriana Adrinaa 1 DROPS OP DAILY Prednisolone Acetate (Ophth) (Prednisolone Acetate) 1 % Carito 1 DROP OPL QID for 10 Days EACH EYE Prednisolone Acetate (Ophth) (Prednisolone Acetate) 1 % Carito 2 DROP OPR DAILY EACH EYE Discharge Exam Review of Systems: Constitutional: No fever, No chills, No sweats, No weakness, No fatigue ENT: No hearing loss Respiratory: No cough, No shortness of breath, No hemoptysis Cardiovascular: No chest pain, No edema, No palpitations Abdomen: + constipation, No pain, No nausea, No vomiting, No diarrhea, No GI bleeding Musculoskeletal: No joint pain, No muscle pain, No swelling, No calf pain Genitourinary - Male: No hematuria, No dysuria Neurologic: No weakness, No numbness/tingling Psychiatric: No depression symptoms, No anxiety Hematologic / Lymphatic: No abnormal bleeding/bruising Integumentary: No rash, No itch, No new/changing skin lesions Physical Exam: General Appearance: no apparent distress Eyes: normal inspection, PERRL ENT: hearing grossly normal Neck: supple Respiratory/Chest: lungs clear, no respiratory distress, no accessory muscle use Cardiovascular: regular rate, rhythm, + systolic murmur Abdomen / GI: normal bowel sounds, non tender, soft Extremities: no calf tenderness, no pedal edema Neurologic/Psychiatric: alert, normal mood/affect, oriented x 3 Skin: normal color, warm/dry, no rash (Citlaly Madera, PAGreer) Hospital Course H&P on admission: The patient is a 86-year-old male who presents to emergency department with symptoms of abdominal pain that began about 2 weeks ago, and more recently over the past 2 days has developed chest pain radiating to his left shoulder and toward his back. He does have a known history of heart disease. He does report that aspirin has helped to relieve his chest discomfort , but nitroglycerin sublinguals have not. He presently is under stress due to the illness of his who was moved to a intermediate 2 weeks ago. He does have chronic constipation for which MiraLAX helps, but he has not had a bowel movement in 4 days. He has chronic difficulty urinating. Physical Exam Vital Signs Date Time Temp Pulse Resp B/P (MAP) Pulse Ox O2 Delivery O2 Flow Rate FiO2 03/22/17 02:52 72 16 139/81 98 Room Air 03/21/17 23:16 81 18 145/87 95 Room Air 03/21/17 20:57 36.7 74 20 153/92 95 Room Air The patient is awake, well-developed and adequately nourished, alert and oriented 3, normocephalic and atraumatic, lying in bed and in no acute distress. HEENT--PERRL, EOMI, mucous membranes and oropharynx dry. Neck--supple, no JVD or bruits, thyroid normal, trachea midline, no adenopathy. Heart--normal S1 and S2, no extra beats, no murmurs, rubs or gallops. Lungs--clear bilaterally with good air movement, no respiratory distress, no accessory muscle use. Abdomen--normal bowel sounds and soft, nontender and nondistended, no hernias or masses, no organomegaly. Extremities--no cyanosis, clubbing or edema. There are good distal pulses b/l. Dermatologic--normal skin turgor, normal color, warm and dry, no abnormal lymph nodes, no rash. Neurologic--cranial nerves II through XII grossly intact, motor and sensory examination normal. Rheumatologic--normal range of motion, nontender, muscles and joints. Psychiatric--normal affect. Chest pain and new EKG changes/CAD: - Admit to tele for cardiac monitoring - Trend cardiac enzymes- negative - EKG QAM and PRN CP - ECHO - Continue ASA 81 mg daily - Consulted cardiology, appreciate recommendations- follows w/ Dr. Jiménez Severe aortic stenosis- noted: Follows w/ Dr. Jiménez 5.5 cm aortic aneurysm- mildly increased from study in 2006: - Known diagnosis to patient - CTA of chest - f/u outpt w/ vascular surgery HTN- CONTROLLED: Continue Losartan 25 mg daily Acute pancreatitis, lipase is elevated at 2575- etiology uncertain (does have a h/o acute pancreatitis in 2012 ?passed CBD stone vs ETOH): - Follow lipase/amylase- trending downward - IV NS + 20 mEq KCL @ 100 ml/hr - IV Morphine 1 mg q3 hrs PRN and Tylenol 650 mg q4 hrs PRN for pain control -- Did NOT need pain control in > 24 hours prior to discharge - Full liquid diet- advanced as tolerated - Denies recent ETOH use, calcium WNL, no trauma, low probability of infectious cause - Checked triglycerides- WNL - Elevated total bilirubin, ?CBD stone- follow - Clinically improved w/ supportive care as above, no need for inpatient GI consult- can f/u/ outpt h/o hypercholesterolemia: - no medications noted - Reviewed lipid panel Glaucoma: Continue usual medications of Lumigan, Combigan, Trusopt, Prednisolone acetate, and Systane Constipation- RESOLVED: - CT of abdomen- no obstruction - Continue MiraLAX daily -- Per patient, has not taking over the last couple of days, which usually causes him to become constipated- will continue MiraLAX and add additional medications PRN DVT Prophylaxis: Lovenox, TEDs/SCDs Code Status: LEVEL I, FULL Dispo: Discharge to home w [facility] - PT/OT worked w/ patient- OK to return home - Case manger setup PCP, GI, and Vascular to call patient w/ f/u - Spoke w/ daughter, all questions/concerns addressed and in understanding with discharge Total Time Spent: Greater than 30 minutes This includes examination of the patient, discharge planning, medication reconciliation, and communication with other providers. (Citlaly Madera, MARA) I personally examined pt and verified all lopez points w Vandana Madera PA-C feeling better eating better no BM but no pain/distention/nausea and notes that frequently he'll have to use miralax and/or dulcolax at home for constipation. wants to be able to be with his . appearing much clinically improved. RN noted dtr wondered about keeping pt in hospital longer but sounded like was due to her taking care of mother (pt's ) --> discharge had been written and before i was able to contact dtr, pt was discharged with family, however, medically appeared safe, pancreatitis resolved, constipation minor, and no other new issues requiring hospitalization had arisen; did not appear to need SNF or rehab. ROS otherwise negative except for as above vitals noted nad breathing unlabored, appearing anxious but no other distress. abdomen nondistended. acute (recurrent) pancreatitis -improved, eating well -no EtOH, no high TG, no evidence of stones -- so will have outpt GI w/u in regards to recurrence (does not appear excessively high risk - last occurrence being years ago) -stable for home TAA- -outpt vascular eval -lipids appear to benefit from statin, but with recent pancreatitis, and statins rarely but occassinally being culprit for this, will hold for now - especially since TAA does not appear to be acute issue. that said, would likely start statin in ~2-4wks if no new issues arise stable for home (Juan David Mccormick, D.O.) Discharge Instructions Please refer to the electronic Patient Visit Report (Discharge Instructions) for additional information. (Citlaly Madera PA-C) Follow-Up Scheduled follow-up with GI Scheduled follow-up with PCP Vascular surgery to call patient for follow-up Please follow-up/keep all of your subspecialty appointments (Citlaly Madera PA-C) Additional Copies To RV. Laila, MD
--- NOTE | 2017-03-23 13:07 | Discharge Instructions ---
Discharge Instructions Date of Service Mar 23, 2017. Admission Reason for Admission: Chest Pain, Pancreatitis Discharge Discharge Diagnosis / Problem: Acute Pancreatitis Discharge Goals Goal(s): Decrease discomfort, Learn about illness, Diagnostic testing, Therapeutic intervention, Prevent Disease Progression Activity Recommendations Activity Limitations: resume your previous activity . Instructions / Follow-Up Instructions / Follow-Up Resume all regular home medications as prescribed Follow-Ups: Please follow-up with your PCP on April 01 Please follow-up with GI on April 07 to further evaluate your pancreatitis Vascular surgery will be calling you with a follow-up appointment to discuss your aortic aneurysm Please follow-up/keep all of your subspecialty appointments Current Hospital Diet Patient's current hospital diet: Low Fat Diet Discharge Diet Recommended Diet: Low Fat Diet (Continue to advance as tolerated ) Procedures Procedures Performed: Chest x-ray Chest CTA Abdominal CT Echocardiogram Pending Studies Studies pending at discharge: no Laboratory Results Last 24 Hours Test 03/22/17 16:32 03/23/17 06:43 Prothrombin Time 11.0 SECONDS Prothromb Time International Ratio 1.0 Activated Partial Thromboplast Time 24.7 SECONDS Partial Thromboplastin Ratio 1.0 Total Creatine Kinase 60 U/L Creatine Kinase MB 2.0 ng/ml Creatine Kinase MB Ratio 3.3 Troponin I 0.020 ng/ml Triglycerides Level 79 mg/dl Cholesterol Level 174 mg/dl HDL Cholesterol 39 mg/dl LDL Cholesterol, Calculated 119 mg/dl VLDL Cholesterol, Calculated 16 mg/dl Cholesterol/HDL Ratio 4.5 White Blood Count 6.96 K/uL Red Blood Count 3.72 M/uL Hemoglobin 11.9 g/dL Hematocrit 35.4 % Mean Corpuscular Volume 95.2 fL Mean Corpuscular Hemoglobin 32.0 pg Mean Corpuscular Hemoglobin Concent 33.6 g/dl Platelet Count 221 K/uL Mean Platelet Volume 9.7 fL Neutrophils (%) (Auto) 61.8 % Lymphocytes (%) (Auto) 20.5 % Monocytes (%) (Auto) 12.8 % Eosinophils (%) (Auto) 4.5 % Basophils (%) (Auto) 0.3 % Neutrophils # (Auto) 4.30 K/uL Lymphocytes # (Auto) 1.43 K/uL Monocytes # (Auto) 0.89 K/uL Eosinophils # (Auto) 0.31 K/uL Basophils # (Auto) 0.02 K/uL RDW Standard Deviation 42.4 fL RDW Coefficient of Variation 12.2 % Immature Granulocyte % (Auto) 0.1 % Immature Granulocyte # (Auto) 0.01 K/uL Sodium Level 141 mmol/L Potassium Level 4.0 mmol/L Chloride Level 112 mmol/L Carbon Dioxide Level 20 mmol/L Anion Gap 9.0 mmol/L Blood Urea Nitrogen 10 mg/dl Creatinine 0.81 mg/dl Est Creatinine Clear Calc Drug Dose 55.9 ml/min Estimated GFR () 93.9 Estimated GFR (Non- 81.0 BUN/Creatinine Ratio 12.0 Random Glucose 72 mg/dl Calcium Level 8.5 mg/dl Lipase 775 U/L Lipid Panel Test 03/22/17 16:32 Range/Units Triglycerides Level 79 0-150 mg/dl Cholesterol Level 174 0-200 mg/dl HDL Cholesterol 39 mg/dl Cholesterol/HDL Ratio 4.5 LDL Cholesterol, Calculated 119 mg/dl Medical Emergencies . Who to Call and When: Medical Emergencies: If at any time you feel your situation is an emergency, please call 911 immediately. . Non-Emergent Contact Non-Emergency issues call your: Primary Care Provider . . "Provider Documentation" section prepared by Citlaly Madera. . VTE Core Measure Inpt VTE Proph given/why not?: Enoxaparin (Lovenox)SQ, SCD's
[2017-03-23] MEDS ORDERED: POLYETHYLENE (MIRALAX) 17 GM PACK PO ONE (13:15)
[2017-03-23 13:32] VITALS: BP 120/79; PULSE 68; TEMP 36.3; O2SAT 97
== END 2017-03-23 14:45 | disposition home health service (06) | DRG 440 ==
LOC: C.EDB 20:45 → C.2T 03-22 02:59 → ENRESERV 03-22 03:27
PROVIDERS: ADMIT Hospitalist; ATTEND Family Medicine
DX: K85.90 Acute pancreatitis without necrosis or infection, unspecified (principal); R07.9 Chest pain, unspecified; R94.31 Abnormal electrocardiogram [ECG] [EKG]; I35.2 Nonrheumatic aortic (valve) stenosis with insufficiency; K59.09 Other constipation; I71.2 Thoracic aortic aneurysm, without rupture; I10 Essential (primary) hypertension; H40.9 Unspecified glaucoma; I25.2 Old myocardial infarction; Z79.82 Long term (current) use of aspirin; Z79.899 Other long term (current) drug therapy

== ENCOUNTER → 2017-09-27 | Outpatient (CLI) | payer OTHER ==
[~2017-09-27] MED LIST changes: -AVD5 PO; +DORZ2SOL19 OP; +FLUO0.0566 TOP; +POLY335019 PO; +POLYSOL4 OP; -PRDFOPS OP; +PRED1SUS17 OPL; +PRED1SUS17 OPR; -TRSOPS2 OP
[2017-09-27 12:30] LABS: ALBUMIN 4.1 gm/dl (3.4-5.0); ALT/SGPT 31 U/L (12-78); BLOOD UREA NITROGEN 24 mg/dl (7-18); CALCIUM 9.3 mg/dl (8.5-10.1); CARBON DIOXIDE 30 mmol/L (21-32); CHOLESTEROL 223 mg/dl (0-200); CREATININE 1.05 mg/dl (0.60-1.40); GLUCOSE 90 mg/dl (70-99); LIPASE 120 U/L (73-393); POTASSIUM 3.9 mmol/L (3.5-5.1); SODIUM 139 mmol/L (136-145)
[2017-09-27 12:35] LABS: ALKALINE PHOSPHATASE 68 U/L (45-117); AST/SGOT 30 U/L (15-37); LDL CHOLESTEROL CALCULATED 156 mg/dl; TOTAL PROTEIN 7.1 gm/dl (6.4-8.2)
== END | disposition home or self-care (01) ==
LOC: C.LAB1850 10:42
PROVIDERS: ATTEND Internal Medicine Cardiovascular Disease
DX: Z87.19 Personal history of other diseases of the digestive system (principal); E78.00 Pure hypercholesterolemia, unspecified; I10 Essential (primary) hypertension

== ENCOUNTER 2018-10-16 16:33 | Inpatient (IN) ==
[2018-10-16] MEDS ORDERED: SODIUM CHLORIDE 0.9% 1000ML 1,000 ML IV SCH (17:00)
--- NOTE | 2018-10-16 17:26 | XRay Report ---
XR chest 1V portable CLINICAL HISTORY: weakness COMPARISON STUDY: 03/21/2017 FINDINGS: The heart remains enlarged. There is persistent aortic tortuosity/ectasia. There is persist ent interstitial thickening with a basilar predominance. There is no lobar consolidation. There is no overt failure.[ IMPRESSION: 1. Stable aortic tortuosity/ectasia 2. Stable basilar residual thickening 3. No evidence of acute parenchymal consolidation Electronically signed by: Jesus Lam M.D. 10/16/2018 5:25 PM
[2018-10-16 17:57] LABS: Basophils # (auto) 0.03 K/uL (0-0.2); Basophils % (auto) 0.7 %; Eosinophils # (auto) 0.17 K/uL (0-0.5); Eosinophils % (auto) 3.9 %; Hematocrit (blood only) 42.9 % (42-52); Immature Granulocytes # (auto) 0.01 K/uL (0.00-0.02); Immature Granulocytes % (auto) 0.2 %; Lymphocytes # (auto) 1.79 K/uL (1.2-3.4); Lymphocytes % (auto) 40.7 %; Mean Corpuscular Hgb Conc 32.6 g/dL (32-36); Mean Corpuscular Volume 96.8 fL (80-100); Mean Platelet Volume 10.4 fL (7.4-10.4); Monocytes # (auto) 0.39 K/uL (0.11-0.59); Monocytes % (auto) 8.9 %; Neutrophils # (auto) 2.01 K/uL (1.4-6.5); Neutrophils % (auto) 45.6 %; Platelet Count 205 K/uL (130-400); RDW Coefficient of Variation 12.5 % (11.5-14.5); RDW Standard Deviation 44.2 fL (36.4-46.3); Red Blood Count 4.43 M/uL (4.7-6.1)
[2018-10-16 18:08] LABS: Alanine Aminotransferase 21 U/L (12-78); Aspartate Aminotransferase 34 U/L (15-37); BUN Creatinine Ratio 12.6 (10-20); Blood Urea Nitrogen 14 mg/dl (7-18); Calcium 9.8 mg/dl (8.5-10.1); Carbon Dioxide 24 mmol/L (21-32); Chloride 101 mmol/L (98-107); Est GFR (Non-African American) 62.1; Glucose 87 mg/dl (70-99); Potassium 3.9 mmol/L (3.5-5.1); Sodium 135 mmol/L (136-145)
[2018-10-16 18:17] LABS: Albumin Globulin Ratio 1.1 (0.9-2); Alkaline Phosphatase 73 U/L (45-117); Bilirubin,Total 2.9 mg/dl (0.2-1); Globulin 3.6 gm/dl (2.5-4.0); Total Protein 7.6 gm/dl (6.4-8.2); Troponin I 0.026 ng/ml (0-0.045)
--- NOTE | 2018-10-16 18:19 | CT Scan Report ---
CT head/brain wo con CLINICAL HISTORY: Altered mental status COMPARISON STUDY: 07/26/2014 TECHNIQUE: Axial CT of the brain is performed from the vertex to the skull base. IV contrast was not administered for this examination. A dose lowering technique was utilized adhering to the principles of ALARA. 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 There is no CT evidence of acute c ortical infarction. There is no midline shift. There is no acute hemorrhage. There are no calvarial f ractures. There are patchy white matter hypodensities likely on a small vessel basis. There is no evidence of pathologic ventricular dilatation. There is no evidence of acute sinusitis IMPRESSION: No acute intracranial findings Electronically signed by: Jesus Lam M.D. 10/16/2018 6:17 PM
--- NOTE | 2018-10-16 18:50 | History & Physical Report ---
Date of Service October 16, 2018 Assessment & Plan (1) Altered mental status: The patient has had progressive decline in cognition since at least 2017. This has been associated with the development of significant hallucinations and depression along with anxiety. This coincides with numerous psychosocial stressors including his son in law having a brain tumor, living alone in an apartment as opposed to living with his , etc. I am uncertain if he is suffering from a progressive dementia vs a pseudodementia process (ie depression with psychosis) vs an organic disturbance (patient with mild hypothyroidism) vs other vs combo of factors. I don't see any infectious etiology contributing to current mental status. He has significant sundowning in addition to the above. Start risperdal 0.5mg HS; increase to 1mg if needed. Repeat EKG in 1-2 days to re-eval the QTc interval. STOP the klonipin. It is not working and potentially will make him worse. Cont lexapro 10mg daily. Start synthroid 25mcg daily. Check thiamine level in am. Of note - B12 level in recent past was normal. Psychiatry consult requested. If they feel this is not depression but more of dementia then outpatient neurology follow-up. Present on Admission?: Yes (2) Weakness: Uncertain if related to his slow sinus bradycardia, the severe ( although not having palpitations to suggest a. fib, no recent syncope or presyncope, and no evidence of CHF), hypothryoidism, etc. Place on telemetry. Start synthroid 25mcg daily. Repeat echo to re-eval the aortic valve even if for prognostic purposes (has refused AVR in past). (3) Bradycardia: sinus. has had sinus bradycardia in the past based on documentation. place on telem. watch for pauses, etc. (4) Aortic stenosis: severe repeat echo mainly for prognostic purposes for patient and his family (5) Glaucoma: cont home drops (6) Hypothyroidism: TSH has been high for some time. Mild. In light of progressive memory issues start synthroid 25mcg daily. (7) Depression: Cont lexapro. Psych consult requested. (8) CAD (coronary artery disease): nonobstructive based on records. no obvious recent ischemic symptoms. 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 no Rx needed. (10) DVT prophylaxis: heparin BID daughter extensively updated about 75 minutes spent on admission activities PT, OT evals will he need placement in memory unit after discharge?? social work consult History of Present Illness Chief Complaint: confusion Primary Care Provider: Wander Ulloa MD 88yo [place] male who presents from home secondary to worsening confusion and hallucinations for several weeks. Due to the patient's mental status all of the history was obtained from his daughter at bedside. Most of his hallucinations have been visual. No auditory hallucinations. He has been living alone in an apartment (his is alive but he and his have been living separately for some time). The patient's lives with the daughter. At times he has told the family he doesn't know where he is. Since May 2018 he has had anxiety and depression. He has had trouble sleeping. He was started on an antidepressant (lexapro) in the fall as well as klonipin at bedtime for sleep. He has voiced to his daughter that he is tired of living. He has had a difficult time recognizing people recently. He has had difficulty with orientation and knowing the date/time. Over the last 2-3 days he stayed with his daughter and the daughter noted severe agitation, severe disorientation, couldn't recognize family members, had paranoid thoughts, etc. Last night he was wandering throughout the house and never slept. Today his daughter found him at the door and he told her he was leaving. This concerned the daughter that he would get outside and wander/get lost. Thus, she brought him to the ER for evaluation. Allergies Allergy/AdvReac Type Severity Reaction Status Date / Time amlodipine Allergy Unknown Swelling Verified 10/16/18 19:44 of Lip/Tongue/Throat gabapentin Allergy Unknown Verified 10/16/18 19:46 hydrochlorothiazide Allergy Unknown Verified 10/16/18 19:44 enalapril AdvReac Unknown Cough Verified 10/16/18 19:44 Sulfa (Sulfonamide AdvReac Unknown JUST Verified 10/16/18 19:34 Antibiotics) DIDN'T FEEL LIKE HIMSELF Home Medications Home Medications Medication Instructions Recorded Confirmed Type aspirin 81 mg PO DAILY 10/16/18 10/16/18 History brimonidine-timolol [Combigan] 1 drp OPB BID 10/16/18 10/16/18 History clonazepam 0.5 mg PO HS 10/16/18 10/16/18 History escitalopram oxalate 10 mg PO DAILY 10/16/18 10/16/18 History prednisolone acetate 1 drp OPB BID 10/16/18 10/16/18 History Past Med/Surg History Medical History Aortic stenosis Acute myocardial infarction (Acute) Closed head injury (Inactive) Syncope (Inactive 07/26/14) Chest wall contusion (Resolved) Elevated troponin I level (Resolved) BPH (benign prostatic hyperplasia) Glaucoma History of hepatitis Surgical History H/O bilateral cataract extraction History of appendectomy Family History Father , vascular disease?; in his 60s No problems noted. Mother , lung disease?; in her 60s No problems noted. 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[place]); originally from [place] Feels Safe at Home: Yes Smoking Status: Former smoker Smoking End Date: quit age 52; 1 ppd Hx Alcohol Use: No (but drank heavily in the past; quit in his 40s) Hx Substance Use: No Beliefs That Will Affect Care: None Preferred Language: [place] Communication Ability: Impaired Communication Ability Comment: speaks understands Citizen Of [place] well Review of Systems Constitutional: + weight loss (since March 2018; 25 pounds; this is despite eating ); no fever and no chills Eyes: no worsening vision Ear, Nose, Mouth, Throat: no dysphagia Respiratory: no cough, no dyspnea and no dyspnea on exertion Cardiovascular: + chest pain (occasional - took nitroglycerin) Gastrointestinal: no abdominal pain and no vomiting Genitourinary (Male): + nocturia; no difficulty urinating claudication with walking Integumentary: no rash Neurologic: + unsteadiness, + localized weakness (legs) and + behavioral changes Psychiatric: + depression and + anxiety Endocrine: + cold intolerance Hematologic / Lymphatic: + easy bruising Physical Exam 2 Vital Signs (Past 24 Hours): Last Vital Signs Temp 36.5 C 10/16/18 16:37 Pulse 51 L 10/16/18 18:33 Resp 20 10/16/18 18:33 BP 182/66 H 10/16/18 18:33 Pulse Ox 96 10/16/18 18:33 Constitutional: average body habitus; no acute distress agitated at times, stating he was leaving Eyes: PERRL (lens implants b/l ) ENMT: external ear and nose normal, oropharynx normal Ears: no TM abnormality Mouth: no oral mucosal abnormality and no tongue abnormality Neck: trachea midline, no thyromegaly Respiratory: normal respiratory effort, lungs clear to auscultation Cardiovascular: Rate/Rhythm: regular rate and regular rhythm Heart Sounds: normal S1 and + murmur (2/6 holosystolic, RUSB, transmits to right neck); + abnormal S2 (s2 is very difficult to hear) Vessels: posterior tibial pulses present and dorsalis pedis pulses present; no JVD Extremities: no pedal edema Gastrointestinal (Abdomen): normal bowel sounds, soft, nontender, no hepatosplenomegaly Musculoskeletal: no cyanosis or clubbing, extremities motor strength 5/5 Skin: no rashes, warm and dry Neurologic: plantar reflexes intact bilaterally and moves all extremities; no focal motor deficits Psychiatric: Orientation: alert; + not oriented x 3 (thought it was "Tuesday or Tuesday" but knew the year) Lymphatic: no cervical lymphadenopathy Results & Data Laboratory Results Laboratory Results - last 24 hr 10/16/18 10/16/18 10/16/18 17:25 17:25 19:10 WBC 4.40 L RBC 4.43 L Hgb 14.0 Hct 42.9 MCV 96.8 MCH 31.6 MCHC 32.6 RDW Std Deviation 44.2 RDW Coeff of Jeremiah 12.5 Plt Count 205 MPV 10.4 Immature Gran % (Auto) 0.2 Neut % (Auto) 45.6 Lymph % (Auto) 40.7 [place] % (Auto) 8.9 Eos % (Auto) 3.9 Baso % (Auto) 0.7 Immature Gran # (Auto) 0.01 Neut # (Auto) 2.01 Lymph # (Auto) 1.79 [place] # (Auto) 0.39 Eos # (Auto) 0.17 Baso # (Auto) 0.03 Sodium 135 L Potassium 3.9 Chloride 101 Carbon Dioxide 24 Anion Gap 10.0 BUN 14 Creatinine 1.07 Est Cr Clr Drug Dosing Not Reportable Est GFR ( Amer) 72.0 Est GFR (Non-Af Amer) 62.1 BUN/Creatinine Ratio 12.6 Glucose 87 Calcium 9.8 Total Bilirubin 2.9 H AST 34 ALT 21 Alkaline Phosphatase 73 Troponin I 0.026 Total Protein 7.6 Albumin 4.0 Globulin 3.6 Albumin/Globulin Ratio 1.1 TSH 7.280 H Specimen Hemolysis Urine Color Yellow Urine Appearance Clear Urine pH 7.0 Ur Specific [place] 1.010 Urine Protein Negative Urine Glucose (UA) Negative Urine Ketones Trace H Urine Blood Negative Urine Nitrite Negative Urine Bilirubin Negative Urine Urobilinogen Negative Ur Leukocyte Esterase Negative Diagnostic Findings CT head - no acute findings. EKG - sinus bradycardia with PVCs, mild ST depressions laterally; QTc top-normal ; RBBB Code Status & VTE Plan Code Status full code technically, but daughter thinks he probably would want to be DNR; is POA VTE Prophylaxis Plan VTE Prophylaxis will be ordered: Yes _ (1) Altered mental status Altered mental status type: unspecified Coma depth: Coma timing: Qualified Code(s): R41.82 - Altered mental status, unspecified (2) Aortic stenosis Cardiac valve disease etiology: etiology unspecified Qualified Code(s): I35.0 - Nonrheumatic aortic (valve) stenosis (3) Glaucoma Glaucoma type: other Laterality: bilateral Qualified Code(s): H40.89 - Other specified glaucoma (4) Hypothyroidism Hypothyroidism type: unspecified Qualified Code(s): E03.9 - Hypothyroidism, unspecified (5) Depression Depression Type: other depression Qualified Code(s): F32.89 - Other specified depressive episodes (6) CAD (coronary artery disease) Coronary Disease-Associated Artery/Lesion type: unspecified vessel or lesion type [place] vs. transplanted heart: [place] heart Associated angina: without angina Qualified Code(s): I25.10 - Atherosclerotic heart disease of [place] coronary artery without angina pectoris
[2018-10-16 19:35] LABS: Appearance Urine Clear (Clear); Bilirubin Urine Negative (Negative); Color Urine Yellow; Glucose Urine UA Negative (Negative); Ketones Urine Trace (Negative); Leukocyte Esterase Urine Negative (Negative); Nitrite Urine Negative (Negative); Protein Urine Negative (Negative); Urobilinogen Urine Negative (Negative)
[2018-10-16] MEDS ORDERED: LORazepam 1 MG/2 ML VIAL IV STA ×2 (20:20→22:57)
--- NOTE | 2018-10-16 21:11 | Emergency Department Note ---
Entered by Sofi Edmondson acting as a scribe for History of Present Illness General Chief complaint: Confusion Stated complaint: CONFUSION Time Seen by Provider: 10/16/18 16:51 Source: patient and family (daughter) Mode of arrival: ambulatory Limitations: no limitations History of Present Illness Provider complaint: Confusion Onset (ago): month(s) (May 2018) 4 Location: head Radiation: non-radiation Pain Consistency: + other (worsening) Quality: + other (confusion) Relieved By: + none Associated symptoms: + weakness and + other (Additional symptoms: hallucinations , argumentativeness. Denies: abdominal pain, urinary symptoms); no chest pain Treatments prior to arrival: none The patient is an 88 year old male with a history of aortic stenosis and a myocardial infarction who presents to the Emergency Room with complaints of worsening confusion starting in May 2018. Per daughter, the patient has declined both physically and emotionally over the past 4 months. She claims that the patient has been acting more confused and hallucinating. She states that he thinks he has been seeing people come in and out of his house although he lives by himself and that he believes that he was locked up in a building that was actually his home. She notes that the patient insists that he still goes to work although he has been retired for years. She reports that the patient tried to go to work today but she managed to stop him before he left the house. Per daughter, the patient has also become increasingly argumentative and weak. She states that he has not been formally diagnosed with dementia. She adds that his medication has been consistent for the past 3 months. The patient currently denies any chest pain, abdominal pain, and urinary symptoms. The patient's daughter expresses that she would like the patient to be placed in the [facility] if possible. Home Medications Home Medications Medication Instructions Recorded Confirmed Type aspirin 81 mg PO DAILY 10/16/18 10/16/18 History brimonidine-timolol [Combigan] 1 drp OPB BID 10/16/18 10/16/18 History clonazepam 0.5 mg PO HS 10/16/18 10/16/18 History escitalopram oxalate 10 mg PO DAILY 10/16/18 10/16/18 History prednisolone acetate 1 drp OPB BID 10/16/18 10/16/18 History Allergies Allergy/AdvReac Type Severity Reaction Status Date / Time amlodipine Allergy Unknown Swelling Verified 10/16/18 19:44 of Lip/Tongue/Throat gabapentin Allergy Unknown Verified 10/16/18 19:46 hydrochlorothiazide Allergy Unknown Verified 10/16/18 19:44 enalapril AdvReac Unknown Cough Verified 10/16/18 19:44 Sulfa (Sulfonamide AdvReac Unknown JUST Verified 10/16/18 19:34 Antibiotics) DIDN'T FEEL LIKE HIMSELF Past Med/Surg History Medical History Aortic stenosis Acute myocardial infarction (Acute) Closed head injury (Inactive) Syncope (Inactive 07/26/14) Chest wall contusion (Resolved) Elevated troponin I level (Resolved) BPH (benign prostatic hyperplasia) Glaucoma History of hepatitis Surgical History H/O bilateral cataract extraction History of appendectomy Family History Father , vascular disease?; in his 60s No problems noted. Mother , lung disease?; in her 60s No problems noted. 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 and A total of 10 systems reviewed and were otherwise negative Physical Exam Vital Signs Vital Signs - 24 hr 10/16/18 16:33 10/16/18 16:37 10/16/18 16:49 Temperature 36.5 C Temperature Source Oral Sepsis Recent Fever Within 48 Hours No Sepsis New/Unexplained Change in Mental Status No Sepsis Action Taken by Nursing No Action Required Pulse Rate 54 L 50 L Pulse Rate [Apical] 47 L Pulse Rhythm Pulse Rhythm [Apical] Irregular Pulse Strength [Apical] Normal Respiratory Rate 20 18 14 Respiratory Effort / Characteristics Non-Labored Respiratory Depth Normal Normal Respiratory Pattern Regular Blood Pressure 144/87 H 180/84 H Blood Pressure [Right Arm] Blood Pressure Mean 106 116 Blood Pressure Mean [Right Arm] Pulse Oximetry 96 97 97 Oxygen Delivery Method Room Air 10/16/18 16:56 10/16/18 17:00 10/16/18 17:28 Temperature Temperature Source Sepsis Recent Fever Within 48 Hours Sepsis New/Unexplained Change in Mental Status Sepsis Action Taken by Nursing Pulse Rate 49 L 51 L 52 L Pulse Rate [Apical] Pulse Rhythm Irregular Pulse Rhythm [Apical] Pulse Strength [Apical] Respiratory Rate 32 H 15 12 Respiratory Effort / Characteristics Respiratory Depth Respiratory Pattern Blood Pressure 163/79 H Blood Pressure [Right Arm] Blood Pressure Mean 107 Blood Pressure Mean [Right Arm] Pulse Oximetry 97 97 Oxygen Delivery Method Room Air 10/16/18 18:00 10/16/18 18:02 10/16/18 18:18 Temperature Temperature Source Sepsis Recent Fever Within 48 Hours Sepsis New/Unexplained Change in Mental Status Sepsis Action Taken by Nursing Pulse Rate 54 L 54 L 54 L Pulse Rate [Apical] Pulse Rhythm Pulse Rhythm [Apical] Pulse Strength [Apical] Respiratory Rate 11 L 11 L 13 Respiratory Effort / Characteristics Respiratory Depth Respiratory Pattern Blood Pressure 174/77 H 182/86 H Blood Pressure [Right Arm] Blood Pressure Mean 109 118 Blood Pressure Mean [Right Arm] Pulse Oximetry Oxygen Delivery Method 10/16/18 18:33 10/16/18 19:00 10/16/18 19:01 Temperature Temperature Source Sepsis Recent Fever Within 48 Hours Sepsis New/Unexplained Change in Mental Status Sepsis Action Taken by Nursing Pulse Rate 61 Pulse Rate [Apical] 51 L Pulse Rhythm Pulse Rhythm [Apical] Pulse Strength [Apical] Respiratory Rate 20 13 17 Respiratory Effort / Characteristics Respiratory Depth Respiratory Pattern Blood Pressure 156/116 H Blood Pressure [Right Arm] 182/66 H Blood Pressure Mean 129 Blood Pressure Mean [Right Arm] 104 Pulse Oximetry 96 Oxygen Delivery Method Room Air 10/16/18 19:17 10/16/18 19:18 10/16/18 20:00 Temperature Temperature Source Sepsis Recent Fever Within 48 Hours Sepsis New/Unexplained Change in Mental Status Sepsis Action Taken by Nursing Pulse Rate 51 L 50 L 57 L Pulse Rate [Apical] Pulse Rhythm Pulse Rhythm [Apical] Pulse Strength [Apical] Respiratory Rate 18 14 15 Respiratory Effort / Characteristics Respiratory Depth Respiratory Pattern Blood Pressure 119/109 H Blood Pressure [Right Arm] Blood Pressure Mean 112 Blood Pressure Mean [Right Arm] Pulse Oximetry Oxygen Delivery Method 10/16/18 20:03 10/16/18 20:04 10/16/18 20:51 Temperature Temperature Source Sepsis Recent Fever Within 48 Hours Sepsis New/Unexplained Change in Mental Status Sepsis Action Taken by Nursing Pulse Rate 59 L 59 L Pulse Rate [Apical] Pulse Rhythm Pulse Rhythm [Apical] Pulse Strength [Apical] Respiratory Rate 13 20 Respiratory Effort / Characteristics Respiratory Depth Respiratory Pattern Blood Pressure 182/87 H Blood Pressure [Right Arm] Blood Pressure Mean 118 Blood Pressure Mean [Right Arm] Pulse Oximetry Oxygen Delivery Method Room Air 10/16/18 20:54 Temperature Temperature Source Sepsis Recent Fever Within 48 Hours Sepsis New/Unexplained Change in Mental Status Sepsis Action Taken by Nursing Pulse Rate 50 L Pulse Rate [Apical] Pulse Rhythm Pulse Rhythm [Apical] Pulse Strength [Apical] Respiratory Rate 19 Respiratory Effort / Characteristics Respiratory Depth Respiratory Pattern Blood Pressure 149/63 H Blood Pressure [Right Arm] Blood Pressure Mean 91 Blood Pressure Mean [Right Arm] Pulse Oximetry Oxygen Delivery Method GENERAL: Sitting up in bed, alert, chronically ill-appearing no distress, non- toxic, pleasantly demented. EYE EXAM: normal conjunctiva. PERRL and EOM's grossly intact. OROPHARYNX: no exudate, no erythema, lips, buccal mucosa, and tongue normal and mucous membranes are moist NECK: supple, no nuchal rigidity, no adenopathy, non-tender LUNGS: Clear to auscultation. Normal chest wall mechanics HEART: no murmurs, S1 normal and S2 normal, bradycardic. ABDOMEN: abdomen soft, non-tender, normo-active bowel, sounds, no masses, no rebound or guarding. BACK: Back is symmetrical on inspection and there is no deformity, no midline tenderness, no CVA tenderness. SKIN: no rashes and no bruising UPPER EXTREMITIES: upper extremities are grossly normal. LOWER EXTREMITIES: No pitting edema. NEURO EXAM: Oriented to person but not place or time. Cranial nerves II-XII intact, normal speech, no weakness of arms, no weakness of legs. No drift. Course ED COURSE: Vital signs were reviewed and showed that he is situationally hypertensive. The patients medical record was reviewed. The above diagnostic studies were performed and reviewed. ED treatments and interventions as stated above. 1653: The patient was evaluated in room B4B. A complete history and physical examination was performed. 1829: Upon reevaluation, the patient is resting. I discussed my findings with the patient and her daughter. They understand and agree with the treatment plan. 1836: I reviewed the patient's case with Dr. Carroll - Hospitalist, Angelique Montanez. Dr. Carroll will evaluate the patient for further management. Based on the patients age, coexisting illnesses, exam and lab findings the decision to treat as an inpatient was made. The patient remained stable while under my care. The patient will be evaluated for further management. Consultations Consultation #1: I reviewed the patient's case with Dr. Carroll - Hospitalist, Angelique Montanez. Dr. Carroll will evaluate the patient for further management. Time: 18:37 Administered Medications Discontinued Medications Sodium Chloride (Nss 1000ml) 1,000 mls @ 999 mls/hr IV .Q1H1M NAT Stop: 10/16/18 18:00 Last Infusion: 10/16/18 18:34 Dose: 0 mls/hr Admin: 10/16/18 17:25 Dose: 999 mls/hr Lorazepam (Ativan) 1 mg in 2 mls @ 2 mls/min IV NOW STA Stop: 10/16/18 20:21 Last Admin: 10/16/18 20:33 Dose: 2 mls/min Medical Decision Making Differential Diagnosis Differential diagnoses includes but is not limited to toxic, metabolic, infectious, traumatic, cardiac, neurologic, hematologic, psychiatric and inflammatory etiologies. Medical Records Attestation: I reviewed the patient's medical records. Home Medications Current Medication List: was personally reviewed by me Laboratory Data Attestation: I reviewed the patient's lab results. Result diagrams: 10/16/18 17:25 10/16/18 17:25 Lab Results 10/16/18 10/16/18 10/16/18 Range/Units 17:25 17:25 19:10 WBC 4.40 L (4.8-10.8) K/uL RBC 4.43 L (4.7-6.1) M/uL Hgb 14.0 (14.0-18.0) g/dL Hct 42.9 (42-52) % MCV 96.8 (80-100) fL MCH 31.6 (25-34) pg MCHC 32.6 (32-36) g/dL RDW Std Deviation 44.2 (36.4-46.3) fL RDW Coeff of Jeremiah 12.5 (11.5-14.5) % Plt Count 205 (130-400) K/uL MPV 10.4 (7.4-10.4) fL Immature Gran % (Auto) 0.2 % Neut % (Auto) 45.6 % Lymph % (Auto) 40.7 % [place] % (Auto) 8.9 % Eos % (Auto) 3.9 % Baso % (Auto) 0.7 % Immature Gran # (Auto) 0.01 (0.00-0.02) K/uL Neut # (Auto) 2.01 (1.4-6.5) K/uL Lymph # (Auto) 1.79 (1.2-3.4) K/uL [place] # (Auto) 0.39 (0.11-0.59) K/uL Eos # (Auto) 0.17 (0-0.5) K/uL Baso # (Auto) 0.03 (0-0.2) K/uL Sodium 135 L (136-145) mmol/L Potassium 3.9 (3.5-5.1) mmol/L Chloride 101 (98-107) mmol/L Carbon Dioxide 24 (21-32) mmol/L Anion Gap 10.0 (3-11) BUN 14 (7-18) mg/dl Creatinine 1.07 (0.6-1.4) mg/dl Est Cr Clr Drug Dosing Not Reportable Est GFR ( Amer) 72.0 Est GFR (Non-Af Amer) 62.1 BUN/Creatinine Ratio 12.6 (10-20) Glucose 87 (70-99) mg/dl Calcium 9.8 (8.5-10.1) mg/dl Total Bilirubin 2.9 H (0.2-1) mg/dl AST 34 (15-37) U/L ALT 21 (12-78) U/L Alkaline Phosphatase 73 (45-117) U/L Troponin I 0.026 (0-0.045) ng/ml Total Protein 7.6 (6.4-8.2) gm/dl Albumin 4.0 (3.4-5.0) gm/dl Globulin 3.6 (2.5-4.0) gm/dl Albumin/Globulin Ratio 1.1 (0.9-2) TSH 7.280 H (0.300-4.500) uIu/ml Specimen Hemolysis Urine Color Yellow Urine Appearance Clear (Clear) Urine pH 7.0 (4.5-7.5) Ur Specific [place] 1.010 (1.000-1.030) Urine Protein Negative (Negative) Urine Glucose (UA) Negative (Negative) Urine Ketones Trace H (Negative) Urine Blood Negative (Negative) Urine Nitrite Negative (Negative) Urine Bilirubin Negative (Negative) Urine Urobilinogen Negative (Negative) Ur Leukocyte Esterase Negative (Negative) Imaging Data Radiologist's Impression: Radiology results as stated below per my review and the radiologist's interpretation: XR chest 1V portable CLINICAL HISTORY: weakness COMPARISON STUDY: 03/21/2017 FINDINGS: The heart remains enlarged. There is persistent aortic tortuosity/ ectasia. There is persistent interstitial thickening with a basilar predominance. There is no lobar consolidation. There is no overt failure.[ IMPRESSION: 1. Stable aortic tortuosity/ectasia 2. Stable basilar residual thickening 3. No evidence of acute parenchymal consolidation Electronically signed by: Jesus Lam M.D. 10/16/2018 5:[address] head/brain wo con CLINICAL HISTORY: Altered mental status COMPARISON STUDY: 07/26/2014 TECHNIQUE: Axial CT of the brain is performed from the vertex to the skull base. IV contrast was not administered for this examination. A dose lowering technique was utilized adhering to the principles of ALARA. 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 There is no CT evidence of acute cortical infarction. There is no midline shift. There is no acute hemorrhage. There are no calvarial fractures. There are patchy white matter hypodensities likely on a small vessel basis. There is no evidence of pathologic ventricular dilatation. There is no evidence of acute sinusitis IMPRESSION: No acute intracranial findings Electronically signed by: Jesus Lam M.D. 10/16/2018 6:17 PM ECG Data Attestation: I personally reviewed and interpreted this ECG as follows: Indication: other (confusion) Rate (beats per minute): 51 Rhythm: sinus bradycardia Findings: + 1st degree AV block, + PVC, + RBBB and + T-wave inversion (flipped T wave in septal leads) Comparison ECG Date: from (03/23/17) Change: the following changes noted (RBBB, 1st degree AV block, and left axis deviation are old) Blood Pressure Blood Pressure Findings: Elevated blood pressure Blood Pressure Disposition: elevated BP felt to be situational MDM Narrative Patient is an 88-year-old male who presents the ER for confusion which has been worsening since this past May. This is been gradually getting worse. Daughter has been having trouble taking care of him at this time. Patient is having hallucinations at home and is feeling very weak. He is extremely bradycardic upon presentation with a heart rate dropping into the 30s. Labs were obtained and showed a leukopenia at 4. No significant anemia. BMP was fairly unremarkable with exception of a bilirubin of 2.9 which consistent with previous. Troponin was detectable but not positive. TSH was slightly elevated. UA was negative. CT of the head was negative. Chest x-ray was unremarkable. EKG did show a new right bundle. Updated patient's daughter at bedside. Patient was evaluated by menagerie caretaker. Patient was discussed with the hospitalist for observation for confusion which I favor secondary to dementia along with the bradycardia and weakness. Impression & Plan Altered mental status, Weakness, Bradycardia Discharge Plan Visit Data Chief Complaint: Confusion Stated Complaint: CONFUSION ED Provider: Juan David Hawkins Discharge Problem: Altered mental status, Weakness, Bradycardia Patient Disposition: Admitted As Inpatient Discharge Instructions Interventions: ED Discharge Assessment Last Done: 10/16/18 20:58 The radhaibe's documentation has been prepared under my direction and personally reviewed by me in its entirety. I confirm that the note above accurately reflects all work, treatment, procedures, and medical decision making performed by me.
[2018-10-16] MEDS ORDERED: ONDANSETRON INJ 2 MG/ML 2 ML VIAL IV PRN (21:23)
[2018-10-16] MEDS: COMBIGAN~ORDER AWAITING ACTION SCH ×2 (21:45→23:48)
[2018-10-16] MEDS: risperiDONE ODT 0.5 MG SOLTAB PO SCH (22:20)
[2018-10-16] MEDS: prednisoLONE acetate 1% OP SUSP 5 ML BTL OPB SCH (22:29)
[2018-10-16 22:49] LABS: INR 1.1 (0.9-1.1); Prothrombin Time 11.3 Seconds (9.0-12.0)
[2018-10-16] MEDS ORDERED: LORazepam 2 MG/4 ML VIAL ONE (22:54)
[2018-10-16] MEDS: HEPARIN SOD 5,000 UNIT/0.5 ML VIAL SQ SCH (23:48)
[2018-10-17] MEDS ORDERED: HALOPERIDOL LACTATE 5 MG/ML 1 ML VIAL IM ONE (02:27)
[2018-10-17] MEDS: LEVOTHYROXINE SODIUM 25 MCG TABLET PO SCH (05:53)
[2018-10-17 07:42] LABS: BUN Creatinine Ratio 11.1 (10-20); Calcium 9.2 mg/dl (8.5-10.1); Creatinine Clr Calc Pharmacy 47.4 ml/min; Est GFR (African American) 86.4; Est GFR (Non-African American) 74.5; Potassium 3.5 mmol/L (3.5-5.1)
--- NOTE | 2018-10-17 08:04 | Hospitalist Progress Note ---
Date of Service October 17, 2018 Assessment & Plan (1) Altered mental status: The patient has had progressive decline in cognition since at least 2017. Family reports altered mental status has been associated with hallucinations and depression along with anxiety. This coincides with numerous psychosocial stressors including his son in law having a brain tumor, living alone in an apartment as opposed to living with his , etc. Differential diagnosis is progressive dementia vs a pseudodementia process (ie depression with psychosis) vs an organic disturbance (patient with mild hypothyroidism) Admitting physician feels no infectious etiology is seen on admission He has a history of sundowning, started on risperdal 0.5mg HS; Continue agitation throughout the day on 122 has required intravenous Haldol dosing. Psychiatry is seeing and will make further medication recommendations Discontinued klonipin on intake Cont lexapro 10mg daily. Started synthroid 25mcg daily. Of note - B12 level in recent past was normal. Psychiatry consult requested. (2) Bradycardia: sinus bradycardia, maybe associated with some of his weakness, ? if from SSRI place on telem. watch for pauses, etc. Synthroid started (3) Aortic stenosis: severe, has refused AVR in the past, repeat echo mainly for prognostic purposes for patient and his family (4) Glaucoma: cont home drops (5) Hypothyroidism: TSH has been high for some time. start synthroid 25mcg daily. (6) Depression: Cont lexapro. Psych consult requested. (7) CAD (coronary artery disease): non obstructive based on records. no obvious recent ischemic symptoms. 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 (9) DVT prophylaxis: heparin BID PT, OT evals Disposition maybe to memory unit at [facility] Subjective This patient is agitated, he seems to be perseverating on meetings he has later in the afternoon direction and [place] people, He redirects any questions regarding his physical being to this concern over her appointments and calling people in [place]ian and hazard [facility] governmental offices Review of Systems Unobtainable due to cognitive status Physical Exam 2 Vital Signs (Past 24 Hours): Last Vital Signs Temp 36.6 C 10/17/18 04:00 Pulse 58 L 10/17/18 05:33 Resp 14 10/17/18 04:00 BP 168/85 H 10/17/18 05:33 Pulse Ox 94 10/17/18 04:00 The patient appeared well nourished and normally developed.He is agitated andPhysically fidgety Vital signs as documented. Head exam is unremarkable. normocephalic, atraumatic Neck is without jugular venous distension, thyromegaly, or lymphademopathy Lungs are clear to auscultation and percussion. Cardiac exam reveals Rhythm is regular Bradycardia has improved. First and second heart sounds normal. Abdominal exam reveals normal bowel sounds, no masses, no organomegaly Extremities are nonedematous and both pedal pulses are present Neurologic exam Difficult to AssessCognitive status, no focal deficits, strength is equal bilateral Psychologically seems neither anxious or depressed Skin is warm Dry without bruises or lesions _ (1) CAD (coronary artery disease) Associated angina: without angina Coronary Disease-Associated Artery/Lesion type: unspecified vessel or lesion type [place] vs. transplanted heart: [place] heart Qualified Code(s): I25.10 - Atherosclerotic heart disease of [place] coronary artery without angina pectoris (2) Aortic stenosis Cardiac valve disease etiology: etiology unspecified Qualified Code(s): I35.0 - Nonrheumatic aortic (valve) stenosis (3) Depression Active/Remission status: Depression Type: other depression Major depression episode severity: Major depression recurrence: Psychotic features : Trimester: Qualified Code(s): F32.89 - Other specified depressive episodes (4) Hypothyroidism Hypothyroidism type: unspecified Qualified Code(s): E03.9 - Hypothyroidism, unspecified (5) Altered mental status Altered mental status type: unspecified Coma depth: Coma timing: Qualified Code(s): R41.82 - Altered mental status, unspecified (6) Glaucoma Glaucoma stage: Glaucoma type: other Laterality: bilateral Open angle glaucoma type: Primary angle closure glaucoma type: Qualified Code(s): H40.89 - Other specified glaucoma
[2018-10-17] MEDS: COMBIGAN~ORDER AWAITING ACTION SCH ×3 (08:29→23:00)
[2018-10-17] MEDS: ASPIRIN 81 MG ECTAB PO SCH ×2 (08:30→17:33)
[2018-10-17] MEDS: ESCITALOPRAM OXALATE 10 MG TAB PO SCH ×2 (08:30→17:33)
[2018-10-17] MEDS: HEPARIN SOD 5,000 UNIT/0.5 ML VIAL SQ SCH ×2 (08:31→20:08)
[2018-10-17] MEDS ORDERED: HALOPERIDOL LACTATE 5 MG/ML 1 ML VIAL IV STA (09:29)
--- NOTE | 2018-10-17 12:28 | Psychiatric Consultation ---
Date of Consultation October 17, 2018 Impression / Recommendations Impression 88 yo CM with history per chart review of CAD, hypothyroid, depression admitted for acute mental status changes. Psychiatry consulted for evaluation of possible contribution of depression to his presentation. Patient on exam is with delirium and no meaningful assessment could be completed. He speaks about getting his shirts and going home and was unable to answer what his name was due to confusion and delirium. Patient has a 1:1 sitter in the room as well as he keeps trying to get out of bed. Patient is likely in a delirium state and full medical work up should be completed to determine cause. Per chart review, it seems that he has a history or progressively worsening dementia and has been forgetful and decreasing in functioning. It is common for delirium to be superimposed on a dementia syndrome. Depression would not be a direct cause of delirium or dementia and given reports of hallucinations, this is common in delirium states. Hallucinations may also be apparent with dementia without delirium and lewy body dementia is characteristic of this, however outpatient follow up and evaluation by neurology or geriatric specialist would be recommended. At this time however, patient would benefit from medications for behavioral management as needed. Will continue to follow with you, please call with further concerns. Recommendations: - Agree with haldol 1mg IV prn, would keep track of use and if given multiple times per day would consider scheduled dosing or use of Zyprexa or Risperdal instead, given concerns for EPS side effects that can develop in elderly population. 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 Psychiatry consulted for evaluation of possible contribution of depression to his presentation. Patient on exam is with delirium and no meaningful assessment could be completed. He speaks about getting his shirts and going home and was unable to answer what his name was due to confusion and delirium. Patient has a 1:1 sitter in the room as well as he keeps trying to get out of bed. Below autopopulated from chart: 88yo [place] male who presents from home secondary to worsening confusion and hallucinations for several weeks. Due to the patient's mental status all of the history was obtained from his daughter at bedside. Most of his hallucinations have been visual. No auditory hallucinations. He has been living alone in an apartment (his is alive but he and his have been living separately for some time). The patient's lives with the daughter. At times he has told the family he doesn't know where he is. Since May 2018 he has had anxiety and depression. He has had trouble sleeping. He was started on an antidepressant (lexapro) in the fall as well as klonipin at bedtime for sleep. He has voiced to his daughter that he is tired of living. He has had a difficult time recognizing people recently. He has had difficulty with orientation and knowing the date/time. Over the last 2-3 days he stayed with his daughter and the daughter noted severe agitation, severe disorientation, couldn't recognize family members, had paranoid thoughts, etc. Last night he was wandering throughout the house and never slept. Today his daughter found him at the door and he told her he was leaving. This concerned the daughter that he would get outside and wander/get lost. Thus, she brought him to the ER for evaluation. Allergies Allergy/AdvReac Type Severity Reaction Status Date / Time amlodipine Allergy Unknown Swelling Verified 10/16/18 19:44 of Lip/Tongue/Throat gabapentin Allergy Unknown Verified 10/16/18 19:46 hydrochlorothiazide Allergy Unknown Verified 10/16/18 19:44 enalapril AdvReac Unknown Cough Verified 10/16/18 19:44 Sulfa (Sulfonamide AdvReac Unknown JUST Verified 10/16/18 19:34 Antibiotics) DIDN'T FEEL LIKE HIMSELF Home Medications Home Medications Medication Instructions Recorded Confirmed Type aspirin 81 mg PO DAILY 10/16/18 10/16/18 History brimonidine-timolol [Combigan] 1 drp OPB BID 10/16/18 10/16/18 History clonazepam 0.5 mg PO HS 10/16/18 10/16/18 History escitalopram oxalate 10 mg PO DAILY 10/16/18 10/16/18 History prednisolone acetate 1 drp OPB BID 10/16/18 10/16/18 History Personal History Beliefs That Will Affect Care: None Patient History Medical History Aortic stenosis Acute myocardial infarction (Acute) Closed head injury (Inactive) Syncope (Inactive 07/26/14) Chest wall contusion (Resolved) Elevated troponin I level (Resolved) BPH (benign prostatic hyperplasia) Glaucoma History of hepatitis Surgical History H/O bilateral cataract extraction History of appendectomy Family History Father , vascular disease?; in his 60s No problems noted. Mother , lung disease?; in her 60s No problems noted. 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[employer]); originally from [place] Feels Safe at Home: Yes Smoking Status: Former smoker Smoking End Date: quit age 52; 1 ppd Hx Alcohol Use: No (but drank heavily in the past; quit in his 40s) Hx Substance Use: No Beliefs That Will Affect Care: None Preferred Language: [place] Communication Ability: Impaired Communication Ability Comment: speaks understands [place]ian well Physical Exam Psychiatric Orientation: alert; + not oriented x 3 Apperance: appeared stated age Eye Contact: + fair eye contact Motor Behavior: + psychomotor retardation Speech: normal rate/rhythm/volume of speech Affect: euthymic affect and mood congruent with affect Thought Process: + incoherent thought process Insight: + impaired insight Judgement: + impaired judgement Vital Signs (Past 24 Hours) Last Vital Signs Temp 36.6 C 10/17/18 04:00 Pulse 71 10/17/18 09:24 Resp 18 10/17/18 09:24 BP 176/84 H 10/17/18 09:24 Pulse Ox 94 10/17/18 04:00 Results & Data Medications Administered Heparin Sodium (Porcine) (Heparin Sodium (Porcine)) 5,000 units SQ Q12 NAT Stop: 11/15/18 22:59 Last Admin: 10/17/18 08:31 Dose: 5,000 units Admin: 10/16/18 23:48 Dose: Not Given Levothyroxine Sodium (Synthroid) 25 mcg PO DAILYBB NAT Stop: 11/16/18 06:29 Last Admin: 10/17/18 05:53 Dose: Not Given Miscellaneous (Order Awaiting Action) 1 ea N/A QS NAT Stop: 11/15/18 21:29 Last Admin: 10/17/18 08:29 Dose: Not Given Admin: 10/16/18 23:48 Dose: Not Given Admin: 10/16/18 21:45 Dose: Not Given Prednisolone Acetate (Pred Forte 1%) 1 drops OPB BID NAT Stop: 11/15/18 21:22 Last Admin: 10/16/18 22:29 Dose: Not Given Risperidone (Risperdal M) 0.5 mg PO HS NAT Stop: 11/15/18 21:22 Last Admin: 10/16/18 22:20 Dose: Not Given
[2018-10-17] MEDS: prednisoLONE acetate 1% OP SUSP 5 ML BTL OPB SCH ×2 (14:34→20:07)
[2018-10-17] MEDS: HALOPERIDOL LACTATE 5 MG/ML 1 ML VIAL IV PRN ×2 (14:36→20:07)
[2018-10-17] MEDS: risperiDONE ODT 0.5 MG SOLTAB PO SCH (20:08)
[2018-10-18] MEDS: HALOPERIDOL LACTATE 5 MG/ML 1 ML VIAL IV PRN ×3 (04:27→11:29)
[2018-10-18] MEDS: LEVOTHYROXINE SODIUM 25 MCG TABLET PO SCH (05:25)
[2018-10-18] MEDS: COMBIGAN~ORDER AWAITING ACTION SCH ×3 (08:05→23:50)
[2018-10-18] MEDS: HEPARIN SOD 5,000 UNIT/0.5 ML VIAL SQ SCH ×2 (08:06→21:09)
[2018-10-18] MEDS: ESCITALOPRAM OXALATE 10 MG TAB PO SCH (08:06)
[2018-10-18] MEDS: ASPIRIN 81 MG ECTAB PO SCH (08:06)
[2018-10-18] MEDS: prednisoLONE acetate 1% OP SUSP 5 ML BTL OPB SCH ×2 (08:08→21:10)
[2018-10-18] MEDS: RISPERIDONE ODT 1MG PO SCH ×2 (10:36→21:09)
--- NOTE | 2018-10-18 13:33 | Hospitalist Progress Note ---
Date of Service October 18, 2018 Assessment & Plan (1) Altered mental status: The patient has had progressive decline in cognition since at least 2017. Family reports altered mental status has been associated with hallucinations and depression along with anxiety. This coincides with numerous psychosocial stressors including his son in law having a brain tumor, living alone in an apartment as opposed to living with his , etc. He has a history of sundowning, was worse in the night from 10/17-10/18. Increased his risperdal but the patient is refusing oral medications of any kind, continue intravenous Haldol dosing. Psychiatry is seeing and will make further medication recommendations Discontinued klonipin on intake Cont lexapro 10mg daily. Started synthroid 25mcg daily. Of note - B12 level in recent past was normal. Psychiatry consult is following (2) Bradycardia: sinus bradycardia, maybe associated with some of his weakness, ? if from SSRI Synthroid started (3) Aortic stenosis: severe, has refused AVR in the past, repeat echo mainly for prognostic purposes for patient and his family does not appear to be in diastolic heart failure at this time appears euvolemic (4) Glaucoma: cont home drops when he allows to be given (5) Hypothyroidism: TSH has been high for some time. started synthroid 25mcg daily. (6) Depression: Cont lexapro. Psych consult continue to see (7) CAD (coronary artery disease): non obstructive based on records. No current symptoms no obvious recent ischemic symptoms. 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 (9) DVT prophylaxis: heparin BID PT, OT evals Disposition maybe to memory unit at [facility] Subjective Patient has been sedated for agitation he is snoring he does arouse slightly but does not interact or communicate Review of Systems Unobtainable due to cognitive status Physical Exam 2 Vital Signs (Past 24 Hours): Last Vital Signs Temp 36.5 C 10/18/18 02:38 Pulse 72 10/18/18 07:25 Resp 18 10/18/18 02:38 BP 141/83 H 10/18/18 02:38 Pulse Ox 92 10/18/18 02:38 The patient appeared obtunded from sedation medications Vital signs as documented. Head exam is unremarkable. normocephalic, atraumatic Neck is without jugular venous distension, thyromegaly, or lymphademopathy Lungs are clear to auscultation decreased effort Cardiac exam reveals Rhythm is regular. Abdominal exam reveals normal bowel sounds, soft Extremities are nonedematous and both pedal pulses are present Neurologic exam sedated does spontaneously move all extremities Skin is warm Dry without bruises or lesions _ (1) Altered mental status Altered mental status type: unspecified Coma depth: Coma timing: Qualified Code(s): R41.82 - Altered mental status, unspecified (2) Aortic stenosis Cardiac valve disease etiology: etiology unspecified Qualified Code(s): I35.0 - Nonrheumatic aortic (valve) stenosis (3) Glaucoma Glaucoma type: other Open angle glaucoma type: Primary angle closure glaucoma type: Laterality: bilateral Glaucoma stage: Qualified Code(s): H40.89 - Other specified glaucoma (4) Hypothyroidism Hypothyroidism type: unspecified Qualified Code(s): E03.9 - Hypothyroidism, unspecified (5) Depression Depression Type: other depression Major depression recurrence: Active/ Remission status: Major depression episode severity: Psychotic features: Trimester: Qualified Code(s): F32.89 - Other specified depressive episodes (6) CAD (coronary artery disease) Coronary Disease-Associated Artery/Lesion type: unspecified vessel or lesion type [place] vs. transplanted heart: [place] heart Associated angina: without angina Qualified Code(s): I25.10 - Atherosclerotic heart disease of [place] coronary artery without angina pectoris
[2018-10-18] MEDS: LORazepam 1 MG/2 ML VIAL IV PRN (15:21)
--- NOTE | 2018-10-18 16:31 | Magnetic Resonance Report ---
MRI OF THE BRAIN WITHOUT CONTRAST CLINICAL HISTORY: altered state COMPARISON STUDY: Head CT October 16, 2018. TECHNIQUE: Utilizing a 1.5 Ch[place]ell magnet and dedicated coil, multiplanar, multiecho imaging of the bra in was performed without IV contrast. FINDINGS: There are no foci of restricted diffusion to suggest acute infarct. No acute intracranial h emorrhage, midline shift or mass effect is present. Moderate atrophy is noted. This accounts for vent ricular dilatation. The basilar cisterns are patent. There are no extra-axial collections. [place] er T2 hyperintense foci suggest mild small vessel disease. No intracranial masses identified on this unenhanced exam. Orbits and sinuses are unremarkable. Calvarial signal is maintained. IMPRESSION: 1. No acute intracranial findings. 2. Moderate atrophy. Mild small vessel disease. Electronically signed by: Diomedes Vela M.D. 10/18/2018 4:30 PM
[2018-10-19] MEDS: LEVOTHYROXINE SODIUM 25 MCG TABLET PO SCH (06:05)
[2018-10-19 07:32] LABS: Hematocrit (blood only) 43.2 % (42-52); Hemoglobin 14.3 g/dL (14.0-18.0); Mean Corpuscular Hgb Conc 33.1 g/dL (32-36); Mean Corpuscular Volume 95.2 fL (80-100); Mean Platelet Volume 10.4 fL (7.4-10.4); Platelet Count 208 K/uL (130-400); RDW Coefficient of Variation 12.7 % (11.5-14.5); RDW Standard Deviation 44.1 fL (36.4-46.3); Red Blood Count 4.54 M/uL (4.7-6.1); White Blood Count 5.58 K/uL (4.8-10.8)
[2018-10-19] MEDS: COMBIGAN~ORDER AWAITING ACTION SCH ×2 (08:14→15:37)
[2018-10-19] MEDS: HEPARIN SOD 5,000 UNIT/0.5 ML VIAL SQ SCH ×2 (08:15→20:55)
[2018-10-19] MEDS: ASPIRIN 81 MG ECTAB PO SCH (08:15)
[2018-10-19] MEDS: ESCITALOPRAM OXALATE 10 MG TAB PO SCH ×2 (08:16→13:19)
[2018-10-19] MEDS: prednisoLONE acetate 1% OP SUSP 5 ML BTL OPB SCH ×2 (08:16→20:28)
[2018-10-19] MEDS: RISPERIDONE ODT 1MG PO SCH ×3 (08:16→20:56)
[2018-10-19] MEDS: HALOPERIDOL LACTATE 5 MG/ML 1 ML VIAL IV PRN ×6 (09:33→21:06)
[2018-10-19] MEDS: CHLORPROMAZINE HCL 10 MG TABLET PO SCH ×2 (13:10→20:25)
--- NOTE | 2018-10-19 15:24 | Hospitalist Progress Note ---
Date of Service October 19, 2018 Assessment & Plan (1) Altered mental status: The patient has had progressive decline in cognition since at least 2017. Family reports altered mental status has been associated with hallucinations and depression along with anxiety. This coincides with numerous psychosocial stressors including his son in law having a brain tumor, living alone in an apartment as opposed to living with his , etc. He has a history of sundowning, continuing Risperdal and offering Thorazine looking for psychiatric oversight to help Discontinued klonipin on intake Cont lexapro 10mg daily. Started synthroid 25mcg daily. Of note - B12 level in recent past was normal. Disposition is an challenge because of his persistent recurring behavioral issues Psychiatry consult is following (2) Bradycardia: sinus bradycardia, maybe associated with some of his weakness, ? if from SSRI Synthroid started (3) Aortic stenosis: severe, has refused AVR in the past, repeat echo mainly for prognostic purposes for patient and his family does not appear to be in diastolic heart failure at this time appears euvolemic (4) Glaucoma: cont home drops when he allows to be given (5) Hypothyroidism: TSH has been high for some time. started synthroid 25mcg daily. (6) Depression: Cont lexapro. Psych consult continue to see (7) CAD (coronary artery disease): non obstructive based on records. No current symptoms no obvious recent ischemic symptoms. 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 (9) DVT prophylaxis: heparin BID PT, OT evals Disposition maybe to memory unit at [facility] Subjective Patient remains persistently agitated he required additional Haldol dosing today is refusing his oral medications which does help blunt some of his behavioral medication control issues Review of Systems Unobtainable due to cognitive status Physical Exam 2 Vital Signs (Past 24 Hours): Last Vital Signs Temp 36.6 C 10/19/18 07:42 Pulse 91 H 10/19/18 08:00 Resp 18 10/19/18 07:42 BP 155/81 H 10/19/18 07:42 Pulse Ox 93 10/19/18 07:42 The patient appeared agitated confused and slightly sedated Vital signs as documented. Head exam is unremarkable. normocephalic, atraumatic Lungs are diminished effort no focal air loss Cardiac exam reveals Rhythm is regular. First and second heart sounds normal. Abdominal exam reveals normal bowel sounds, soft and nontender Extremities are nonedematous and both pedal pulses are present Neurologic exam is A&Ox2, spontaneous moves all extremities no focal loss is seen Psychologically seems neither anxious confused Skin is warm Dry without bruises or lesions _ (1) Altered mental status Altered mental status type: unspecified Coma depth: Coma timing: Qualified Code(s): R41.82 - Altered mental status, unspecified (2) Aortic stenosis Cardiac valve disease etiology: etiology unspecified Qualified Code(s): I35.0 - Nonrheumatic aortic (valve) stenosis (3) Glaucoma Glaucoma type: other Open angle glaucoma type: Primary angle closure glaucoma type: Laterality: bilateral Glaucoma stage: Qualified Code(s): H40.89 - Other specified glaucoma (4) Hypothyroidism Hypothyroidism type: unspecified Qualified Code(s): E03.9 - Hypothyroidism, unspecified (5) Depression Depression Type: other depression Major depression recurrence: Active/ Remission status: Major depression episode severity: Psychotic features: Trimester: Qualified Code(s): F32.89 - Other specified depressive episodes (6) CAD (coronary artery disease) Coronary Disease-Associated Artery/Lesion type: unspecified vessel or lesion type [place] vs. transplanted heart: [place] heart Associated angina: without angina Qualified Code(s): I25.10 - Atherosclerotic heart disease of [place] coronary artery without angina pectoris
[2018-10-20] MEDS: HALOPERIDOL LACTATE 5 MG/ML 1 ML VIAL IV PRN ×4 (00:02→14:17)
[2018-10-20] MEDS: COMBIGAN~ORDER AWAITING ACTION SCH ×2 (00:05→08:34)
[2018-10-20] MEDS ORDERED: HALOPERIDOL LACTATE 5 MG/ML 1 ML VIAL IM STA (01:41)
[2018-10-20] MEDS ORDERED: LORazepam 1 MG/2 ML VIAL IV STA (01:41)
[2018-10-20] MEDS: LORazepam 1 MG/2 ML VIAL IV PRN (01:53)
[2018-10-20] MEDS: LEVOTHYROXINE SODIUM 25 MCG TABLET PO SCH (05:58)
[2018-10-20] MEDS: ASPIRIN 81 MG ECTAB PO SCH (08:34)
[2018-10-20] MEDS: ESCITALOPRAM OXALATE 10 MG TAB PO SCH (08:34)
[2018-10-20] MEDS: prednisoLONE acetate 1% OP SUSP 5 ML BTL OPB SCH ×2 (08:34→20:50)
[2018-10-20] MEDS ORDERED: PROCHLORPERAZINE 5 MG/ML 2 ML VIAL IM ONE (11:00)
[2018-10-20] MEDS: HEPARIN SOD 5,000 UNIT/0.5 ML VIAL SQ SCH ×2 (14:17→20:51)
[2018-10-20] MEDS ORDERED: HALOPERIDOL LACTATE 5 MG/ML 1 ML VIAL IM PRN (14:40)
[2018-10-20] MEDS ORDERED: LORazepam 0.5 MG/1 ML VIAL IV PRN (14:40)
--- NOTE | 2018-10-20 14:46 | Hospitalist Progress Note ---
Date of Service October 20, 2018 Assessment & Plan (1) Altered mental status: The patient has had progressive decline in cognition since at least 2017. Family reports altered mental status has been associated with hallucinations and depression along with anxiety. This coincides with numerous psychosocial stressors including his son in law having a brain tumor, living alone in an apartment as opposed to living with his , etc. He has a history of sundowning, this is been refusing oral medications and been relegated to taking IV Haldol and IV Ativan. He has however slightly improved after some Thorazine and will hopefully institute his Risperdal the evening of . If this goes well we will continue to offer Lexapro on 10/21 Previously we have discontinued klonipin on intake Started synthroid 25mcg daily. Of note - B12 level in recent past was normal. Disposition is an challenge because of his persistent recurring behavioral issues Psychiatry consult is following (2) Bradycardia: sinus bradycardia, maybe associated with some of his weakness, ? if from SSRI this is improved Synthroid started (3) Aortic stenosis: severe, has refused AVR in the past, repeat echo mainly for prognostic purposes for patient and his family does not appear to be in diastolic heart failure at this time appears euvolemic patient has no evidence of volume overload although is slightly congested sounding on exam this afternoon (4) Glaucoma: cont home drops when he allows to be given (5) Hypothyroidism: TSH has been high for some time. started synthroid 25mcg daily. (6) Depression: Cont lexapro. Patient permits himself take oral medications Psych consult has no direct recommendations other than geriatric psychiatry and possible neurology evaluation (7) CAD (coronary artery disease): non obstructive based on records. No current symptoms no obvious recent ischemic symptoms. 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 (9) DVT prophylaxis: heparin BID PT, OT evals Disposition maybe to memory unit at [facility] Subjective Patient has been sedated again overnight due to aggressive outbursts and gestures made toward staff he was given some Thorazine this morning and hopefully will be able to institute respiratory therapy if he is more cooperative tonight with Respinol twice daily and then once he begins to take that we will institute his antidepressant continue to look for a memory unit with the geriatric psych oversight Review of Systems Unobtainable due to cognitive status Physical Exam 2 Vital Signs (Past 24 Hours): Last Vital Signs Temp 36.4 C L 10/20/18 11:48 Pulse 74 10/20/18 11:48 Resp 18 10/20/18 11:48 BP 112/77 10/20/18 11:48 Pulse Ox 94 10/20/18 11:48 The patient appeared well nourished and normally developed. Patient is obtunded and lethargic from chemical restraint medication Vital signs as documented. Head exam is unremarkable. normocephalic, atraumatic Neck is without jugular venous distension, thyromegaly, or lymphademopathy Lungs are diminished due to his sedation Cardiac exam reveals Rhythm is regular. First and second heart sounds normal. Abdominal exam reveals normal bowel sounds, no masses, no organomegaly Extremities are nonedematous and both pedal pulses are present Neurologic unable to be tested he does spontaneously move all extremities at this time _ (1) Altered mental status Altered mental status type: unspecified Coma depth: Coma timing: Qualified Code(s): R41.82 - Altered mental status, unspecified (2) Aortic stenosis Cardiac valve disease etiology: etiology unspecified Qualified Code(s): I35.0 - Nonrheumatic aortic (valve) stenosis (3) Glaucoma Glaucoma type: other Open angle glaucoma type: Primary angle closure glaucoma type: Laterality: bilateral Glaucoma stage: Qualified Code(s): H40.89 - Other specified glaucoma (4) Hypothyroidism Hypothyroidism type: unspecified Qualified Code(s): E03.9 - Hypothyroidism, unspecified (5) Depression Depression Type: other depression Major depression recurrence: Active/ Remission status: Major depression episode severity: Psychotic features: Trimester: Qualified Code(s): F32.89 - Other specified depressive episodes (6) CAD (coronary artery disease) Coronary Disease-Associated Artery/Lesion type: unspecified vessel or lesion type [place] vs. transplanted heart: [place] heart Associated angina: without angina Qualified Code(s): I25.10 - Atherosclerotic heart disease of [place] coronary artery without angina pectoris
[2018-10-20] MEDS ORDERED: CHLORPROMAZINE HCL INJ 25 MG/ML 2 ML AMP IM PRN (15:07)
--- NOTE | 2018-10-20 17:06 | XRay Report ---
XR chest 1V portable HISTORY: 88 years-old Male eval for asp pnx or hf acute atypical chest pain COMPARISON: Chest radiograph 10/16/2017 TECHNIQUE: Portable AP view of the chest FINDINGS: Cardiac silhouette is mildly enlarged, unchanged. No overt pulmonary edema. Mild chronic interstitial coarsening. Trace bilateral pleural effusions are suspected. No pneumothorax. Subsegmental bibasilar opacities. Degenerative changes of the shoulders and spine. IMPRESSION: 1. Cardiomegaly without overt pulmonary edema. 2. Trace pleural effusions 3. Bibasilar opacities suggestive of atelectasis or pneumonitis. The above report was generated using voice recognition software. It may contain grammatical, syntax o r spelling errors. Electronically signed by: Tho Cade M.D. 10/20/2018 5:04 PM
[2018-10-20] MEDS: risperiDONE ODT 0.5 MG SOLTAB PO SCH (20:42)
[2018-10-21] MEDS: LEVOTHYROXINE SODIUM 25 MCG TABLET PO SCH (06:19)
[2018-10-21] MEDS: risperiDONE ODT 0.5 MG SOLTAB PO SCH ×2 (09:27→20:00)
[2018-10-21] MEDS: HEPARIN SOD 5,000 UNIT/0.5 ML VIAL SQ SCH ×2 (09:27→20:40)
[2018-10-21] MEDS: ASPIRIN 81 MG ECTAB PO SCH (09:27)
[2018-10-21] MEDS: ESCITALOPRAM OXALATE 10 MG TAB PO SCH (09:27)
[2018-10-21] MEDS: prednisoLONE acetate 1% OP SUSP 5 ML BTL OPB SCH ×2 (09:28→20:39)
--- NOTE | 2018-10-21 13:56 | Hospitalist Progress Note ---
Date of Service October 21, 2018 Assessment & Plan (1) Altered mental status: The patient has had progressive decline in cognition since at least 2017. Family reports altered mental status has been associated with hallucinations and depression along with anxiety. This coincides with numerous psychosocial stressors including his son in law having a brain tumor, living alone in an apartment as opposed to living with his , etc. After fairly substantial sedation, and thorazine pt became calm enough and did agree to take Risperdal the evening of 10/20. he agreed to take risperdal and Lexapro on 10/21 Previously we have discontinued klonipin on intake Started synthroid 25mcg daily. Of note - B12 level in recent past was normal. Disposition is an challenge because of his persistent recurring behavioral issues Psychiatry consult has seen and agrees to medication choices (2) Bradycardia: sinus bradycardia, maybe associated with some of his weakness, this is improved Synthroid started (3) Aortic stenosis: severe, has refused AVR in the past, repeat echo mainly for prognostic purposes for patient and his family does not appear to be in diastolic heart failure at this time remains euvolemic patient has no evidence of volume overload although CXR checked 10/20 was without pulmonary edema or infection (4) Glaucoma: cont home drops when he allows to be given (5) Hypothyroidism: TSH has been high for some time. started synthroid 25mcg daily. (6) Depression: Cont lexapro. (7) CAD (coronary artery disease): non obstructive based on records. No current symptoms no obvious recent ischemic symptoms. 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 (9) DVT prophylaxis: heparin BID may need PT/OT for placement once is agreeable Disposition maybe to memory unit at [facility] Subjective Patient is awake and alert is not agitated attempting to feed himself lunch speaking in Kyrgyz and Panamanian Review of Systems ROS: well nourished well developed. No double vision blurry vision No problems with speech or swallowing No palpitations, chest pain or pressure No Wheezing or breathing issues No abdominal pain nausea vomiting diarrhea changes in appetite or weight No burning urine urine frequency or changes in color No focal joint pain or muscle pain No skin rashes or oral lesions No unusual bruising or bleeding No focused back pain or numbness or loss of strength Persistent changes in memory are hard to gauge due to his initial presentation Physical Exam 2 Vital Signs (Past 24 Hours): Last Vital Signs Temp 35.9 C L 10/21/18 06:47 Pulse 75 10/21/18 06:47 Resp 16 10/21/18 06:47 BP 108/77 10/21/18 06:47 Pulse Ox 91 10/21/18 06:47 The patient appeared well nourished and normally developed. Vital signs as documented. Head exam is unremarkable. normocephalic, atraumatic Neck is without jugular venous distension, thyromegaly, or lymphademopathy Lungs are clear to auscultation and percussion. Cardiac exam reveals Rhythm is regular. First and second heart sounds normal. Abdominal exam reveals normal bowel sounds, no masses, no organomegaly Extremities are nonedematous and both pedal pulses are present Neurologic exam is alert no focal deficits, strength is equal bilateral Psychologically seems anxious and slightly sedated Skin is warm Dry without bruises or lesions _ (1) Altered mental status Altered mental status type: unspecified Coma depth: Coma timing: Qualified Code(s): R41.82 - Altered mental status, unspecified (2) Aortic stenosis Cardiac valve disease etiology: etiology unspecified Qualified Code(s): I35.0 - Nonrheumatic aortic (valve) stenosis (3) Glaucoma Glaucoma type: other Open angle glaucoma type: Primary angle closure glaucoma type: Laterality: bilateral Glaucoma stage: Qualified Code(s): H40.89 - Other specified glaucoma (4) Hypothyroidism Hypothyroidism type: unspecified Qualified Code(s): E03.9 - Hypothyroidism, unspecified (5) Depression Depression Type: other depression Major depression recurrence: Active/ Remission status: Major depression episode severity: Psychotic features: Trimester: Qualified Code(s): F32.89 - Other specified depressive episodes (6) CAD (coronary artery disease) Coronary Disease-Associated Artery/Lesion type: unspecified vessel or lesion type [place] vs. transplanted heart: [place] heart Associated angina: without angina Qualified Code(s): I25.10 - Atherosclerotic heart disease of [place] coronary artery without angina pectoris
[2018-10-22] MEDS: LEVOTHYROXINE SODIUM 25 MCG TABLET PO SCH (05:52)
[2018-10-22 05:59] LABS: Hematocrit (blood only) 43.4 % (42-52); Hemoglobin 14.5 g/dL (14.0-18.0); Mean Corpuscular Hgb Conc 33.4 g/dL (32-36); Mean Corpuscular Volume 94.6 fL (80-100); Mean Platelet Volume 10.4 fL (7.4-10.4); Platelet Count 240 K/uL (130-400); RDW Coefficient of Variation 12.8 % (11.5-14.5); RDW Standard Deviation 44.1 fL (36.4-46.3); Red Blood Count 4.59 M/uL (4.7-6.1); White Blood Count 5.93 K/uL (4.8-10.8)
[2018-10-22] MEDS: HEPARIN SOD 5,000 UNIT/0.5 ML VIAL SQ SCH ×2 (08:11→21:40)
[2018-10-22] MEDS: prednisoLONE acetate 1% OP SUSP 5 ML BTL OPB SCH ×2 (08:11→21:39)
[2018-10-22] MEDS: ASPIRIN 81 MG ECTAB PO SCH (08:12)
[2018-10-22] MEDS: ESCITALOPRAM OXALATE 10 MG TAB PO SCH (08:12)
[2018-10-22] MEDS: risperiDONE ODT 0.5 MG SOLTAB PO SCH ×2 (08:48→22:03)
--- NOTE | 2018-10-22 13:59 | Hospitalist Progress Note ---
Date of Service October 22, 2018 Assessment & Plan (1) Altered mental status: The patient has had progressive decline in cognition since at least 2017. Family reports altered mental status has been associated with hallucinations and depression along with anxiety. This coincides with numerous psychosocial stressors including his son in law having a brain tumor, living alone in an apartment as opposed to living with his , etc. After fairly substantial sedation, Patient has symptoms controlled on twice daily Risperdal and Lexapro on 10/21 Previously we have discontinued klonipin on intake Started synthroid 25mcg daily. Of note - B12 level in recent past was normal. Psychiatry consult has seen and agrees to medication choices (2) Bradycardia: sinus bradycardia, maybe associated with some of his weakness, this is improved Synthroid started (3) Aortic stenosis: severe, has refused AVR in the past, repeat echo mainly for prognostic purposes for patient and his family does not appear to be in diastolic heart failure patient consists continues to remain euvolemic patient has no evidence of volume overload although CXR checked 10/20 was without pulmonary edema or infection (4) Glaucoma: cont home drops when he allows to be given (5) Hypothyroidism: TSH has been high for some time. started synthroid 25mcg daily. (6) Depression: Cont lexapro. (7) CAD (coronary artery disease): non obstructive based on records. No current symptoms no obvious recent ischemic symptoms. 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 (9) DVT prophylaxis: heparin BID may need PT/OT for placement once is agreeable Disposition maybe to memory unit at [facility] Subjective Patient is awake alert cooperative walking about the room has no focal complaints or problems does need some attention from staff to prevent him from wandering off of her no complaints or problems Review of Systems Unobtainable due to cognitive status Physical Exam 2 Vital Signs (Past 24 Hours): Last Vital Signs Temp 36.6 C 10/21/18 22:55 Pulse 94 H 10/21/18 22:55 Resp 20 10/21/18 22:55 BP 111/79 10/21/18 22:55 Pulse Ox 95 10/21/18 22:55 The patient appeared well nourished and normally developed. He is now eating and able to feed himself Vital signs as documented. Head exam is unremarkable. normocephalic, atraumatic Neck is without jugular venous distension, thyromegaly, or lymphademopathy Lungs are clear to auscultation and percussion. Cardiac exam reveals Rhythm is regular. First and second heart sounds normal. Abdominal exam reveals normal bowel sounds, no masses, no organomegaly Extremities are nonedematous and both pedal pulses are present Patient is obviously demented with forgetfulness he can have casual conversation but not respond to direct questioning he still needs placement in a memory unit for further evaluation Skin is warm Dry without bruises or lesions _ (1) CAD (coronary artery disease) Associated angina: without angina Coronary Disease-Associated Artery/Lesion type: unspecified vessel or lesion type [place] vs. transplanted heart: [place] heart Qualified Code(s): I25.10 - Atherosclerotic heart disease of [place] coronary artery without angina pectoris (2) Aortic stenosis Cardiac valve disease etiology: etiology unspecified Qualified Code(s): I35.0 - Nonrheumatic aortic (valve) stenosis (3) Depression Active/Remission status: Depression Type: other depression Major depression episode severity: Major depression recurrence: Psychotic features : Trimester: Qualified Code(s): F32.89 - Other specified depressive episodes (4) Hypothyroidism Hypothyroidism type: unspecified Qualified Code(s): E03.9 - Hypothyroidism, unspecified (5) Altered mental status Altered mental status type: unspecified Coma depth: Coma timing: Qualified Code(s): R41.82 - Altered mental status, unspecified (6) Glaucoma Glaucoma stage: Glaucoma type: other Laterality: bilateral Open angle glaucoma type: Primary angle closure glaucoma type: Qualified Code(s): H40.89 - Other specified glaucoma
[2018-10-23] MEDS: LEVOTHYROXINE SODIUM 25 MCG TABLET PO SCH (05:42)
[2018-10-23] MEDS: HEPARIN SOD 5,000 UNIT/0.5 ML VIAL SQ SCH ×2 (08:33→21:31)
[2018-10-23] MEDS: risperiDONE ODT 0.5 MG SOLTAB PO SCH ×2 (08:34→21:29)
[2018-10-23] MEDS: ASPIRIN 81 MG ECTAB PO SCH (08:34)
[2018-10-23] MEDS: prednisoLONE acetate 1% OP SUSP 5 ML BTL OPB SCH ×2 (08:34→21:29)
[2018-10-23] MEDS: ESCITALOPRAM OXALATE 10 MG TAB PO SCH (08:34)
--- NOTE | 2018-10-23 21:53 | Hospitalist Progress Note ---
Date of Service October 23, 2018 Assessment & Plan (1) Altered mental status: The patient has had progressive decline in cognition since at least 2017. Family reports altered mental status has been associated with hallucinations and depression along with anxiety. This coincides with numerous psychosocial stressors including his son in law having a brain tumor, living alone in an apartment as opposed to living with his , etc. Patient has symptoms been controlled on twice daily Risperdal and Lexapro since 10/21 Previously we have discontinued klonipin on intake Patient is no longer on 1 to 1. Patient is cooperative and has not been wandering the halls. Patient will benefit from inpatient memory unit. Started synthroid 25mcg daily. Of note - B12 level in recent past was normal. Psychiatry consult has seen and agrees to medication choices (2) Bradycardia: sinus bradycardia, maybe associated with some of his weakness, this has improved Synthroid started (3) Aortic stenosis: severe, has refused AVR in the past, repeat echo mainly for prognostic purposes for patient and his family does not appear to be in diastolic heart failure patient consists continues to remain euvolemic patient has no evidence of volume overload although CXR checked 10/20 was without pulmonary edema or infection (4) Glaucoma: cont home drops when he allows to be given (5) Hypothyroidism: TSH has been high for some time. started synthroid 25mcg daily. (6) Depression: Cont lexapro. (7) CAD (coronary artery disease): non obstructive based on records. No current symptoms no obvious recent ischemic symptoms. 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 (9) DVT prophylaxis: heparin BID may need PT/OT for placement once is agreeable Disposition maybe to memory unit at [facility] Spent 35 minutes in management of patient. This included chart review and patient encounter. Subjective Patient has been off one to one throughout the day. Patient is pleasant and cooperative. He lets me examine him. He however does not provide significant history as he is only speaking in qatari. He knows Spanish and Chadian but is only speaking in Kittitian during this encounter. Physical Exam 2 Vital Signs (Past 24 Hours): Last Vital Signs Temp 36.5 C 10/23/18 15:00 Pulse 74 10/23/18 15:00 Resp 18 10/23/18 15:00 BP 169/96 H 10/23/18 15:00 Pulse Ox 92 01/28/19 15:00 Physical Exam: The patient appeared well nourished and normally developed. He is still able to eat and is cooperative. Vital signs as documented. Head exam is unremarkable. normocephalic, atraumatic Neck is without jugular venous distension, thyromegaly, or lymphademopathy Lungs are clear to auscultation and percussion. Cardiac exam reveals Rhythm is regular. First and second heart sounds normal. Abdominal exam reveals normal bowel sounds, no masses, no organomegaly Extremities are nonedematous and both pedal pulses are present Skin is warm Dry without bruises or lesions _ (1) CAD (coronary artery disease) Associated angina: without angina Coronary Disease-Associated Artery/Lesion type: unspecified vessel or lesion type [place] vs. transplanted heart: [place] heart Qualified Code(s): I25.10 - Atherosclerotic heart disease of [place] coronary artery without angina pectoris (2) Aortic stenosis Cardiac valve disease etiology: etiology unspecified Qualified Code(s): I35.0 - Nonrheumatic aortic (valve) stenosis (3) Depression Active/Remission status: Depression Type: other depression Major depression episode severity: Major depression recurrence: Psychotic features : Trimester: Qualified Code(s): F32.89 - Other specified depressive episodes (4) Hypothyroidism Hypothyroidism type: unspecified Qualified Code(s): E03.9 - Hypothyroidism, unspecified (5) Altered mental status Altered mental status type: unspecified Coma depth: Coma timing: Qualified Code(s): R41.82 - Altered mental status, unspecified (6) Glaucoma Glaucoma stage: Glaucoma type: other Laterality: bilateral Open angle glaucoma type: Primary angle closure glaucoma type: Qualified Code(s): H40.89 - Other specified glaucoma
[2018-10-24] MEDS: LEVOTHYROXINE SODIUM 25 MCG TABLET PO SCH (06:01)
--- NOTE | 2018-10-24 08:14 | Hospitalist Progress Note ---
Date of Service October 24, 2018 Assessment & Plan (1) Altered mental status: The patient has had progressive decline in cognition since at least 2017. Family reports altered mental status has been associated with hallucinations and depression along with anxiety. This coincides with numerous psychosocial stressors including his son in law having a brain tumor, living alone in an apartment as opposed to living with his , etc. Patient has symptoms been controlled on twice daily Risperdal and Lexapro since 10/21 Previously we have discontinued klonipin on intake Patient is no longer on to . This has been the case since I have been on the service since 10/23. Patient is cooperative and has not been wandering the halls. Patient will benefit from inpatient memory unit. Started synthroid 25mcg daily. Of note - B12 level in recent past was normal. Psychiatry consult has seen and agrees to medication choices (2) Bradycardia: sinus bradycardia, maybe associated with some of his weakness, this has improved Synthroid started (3) Aortic stenosis: severe, has refused AVR in the past, repeat echo mainly for prognostic purposes for patient and his family does not appear to be in diastolic heart failure patient consists continues to remain euvolemic patient has no evidence of volume overload although CXR checked 10/20 was without pulmonary edema or infection (4) Glaucoma: cont home drops when he allows to be given (5) Hypothyroidism: TSH has been high for some time. started synthroid 25mcg daily. (6) Depression: Cont lexapro. (7) CAD (coronary artery disease): non obstructive based on records. No current symptoms no obvious recent ischemic symptoms. 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 (9) DVT prophylaxis: heparin BID may need PT/OT for placement once is agreeable Disposition maybe to memory unit at [facility] Spent 25 minutes in management of patient. Subjective Patient today is speaking to me in Vietnamese. Patient is pleasant and cooperative. He again does not have a one to one. He is kind enough to offer me his croissants, (which were half eaten). He does not provide any signifcant complaints but required help to sit in a chair. Difficult to obtain Review of systems due to his mental status. Physical Exam 2 Vital Signs (Past 24 Hours): Last Vital Signs Temp 36.8 C 10/24/18 07:46 Pulse 65 10/24/18 07:46 Resp 18 10/24/18 07:46 BP 131/79 10/24/18 07:46 Pulse Ox 94 10/24/18 07:46 Physical Exam: The patient appeared well nourished and normally developed. He is still able to eat and is cooperative. Vital signs as documented. Head exam is unremarkable. normocephalic, atraumatic Neck is without jugular venous distension, thyromegaly, or lymphademopathy Lungs are clear to auscultation and percussion. Cardiac exam reveals Rhythm is regular. First and second heart sounds normal. Abdominal exam reveals normal bowel sounds, no masses, no organomegaly Extremities are nonedematous and both pedal pulses are present Skin is warm Dry without bruises or lesions _ (1) CAD (coronary artery disease) Associated angina: without angina Coronary Disease-Associated Artery/Lesion type: unspecified vessel or lesion type [place] vs. transplanted heart: [place] heart Qualified Code(s): I25.10 - Atherosclerotic heart disease of [place] coronary artery without angina pectoris (2) Aortic stenosis Cardiac valve disease etiology: etiology unspecified Qualified Code(s): I35.0 - Nonrheumatic aortic (valve) stenosis (3) Depression Active/Remission status: Depression Type: other depression Major depression episode severity: Major depression recurrence: Psychotic features : Trimester: Qualified Code(s): F32.89 - Other specified depressive episodes (4) Hypothyroidism Hypothyroidism type: unspecified Qualified Code(s): E03.9 - Hypothyroidism, unspecified (5) Altered mental status Altered mental status type: unspecified Coma depth: Coma timing: Qualified Code(s): R41.82 - Altered mental status, unspecified (6) Glaucoma Glaucoma stage: Glaucoma type: other Laterality: bilateral Open angle glaucoma type: Primary angle closure glaucoma type: Qualified Code(s): H40.89 - Other specified glaucoma
[2018-10-24] MEDS: HEPARIN SOD 5,000 UNIT/0.5 ML VIAL SQ SCH ×2 (08:18→20:31)
[2018-10-24] MEDS: risperiDONE ODT 0.5 MG SOLTAB PO SCH ×2 (08:18→20:30)
[2018-10-24] MEDS: ESCITALOPRAM OXALATE 10 MG TAB PO SCH (08:18)
[2018-10-24] MEDS: prednisoLONE acetate 1% OP SUSP 5 ML BTL OPB SCH ×2 (08:19→20:30)
[2018-10-24] MEDS: ASPIRIN 81 MG ECTAB PO SCH (08:19)
[2018-10-25] MEDS: LEVOTHYROXINE SODIUM 25 MCG TABLET PO SCH (05:30)
[2018-10-25 06:50] LABS: Hematocrit (blood only) 43.1 % (42-52); Hemoglobin 14.1 g/dL (14.0-18.0); Mean Corpuscular Hgb Conc 32.7 g/dL (32-36); Mean Corpuscular Volume 97.3 fL (80-100); Mean Platelet Volume 10.7 fL (7.4-10.4); Platelet Count 258 K/uL (130-400); RDW Coefficient of Variation 13.1 % (11.5-14.5); RDW Standard Deviation 46.5 fL (36.4-46.3); Red Blood Count 4.43 M/uL (4.7-6.1); White Blood Count 6.95 K/uL (4.8-10.8)
[2018-10-25] MEDS: risperiDONE ODT 0.5 MG SOLTAB PO SCH ×2 (10:02→20:33)
[2018-10-25] MEDS: ASPIRIN 81 MG ECTAB PO SCH (10:02)
[2018-10-25] MEDS: ESCITALOPRAM OXALATE 10 MG TAB PO SCH (10:03)
[2018-10-25] MEDS: prednisoLONE acetate 1% OP SUSP 5 ML BTL OPB SCH ×2 (10:03→20:31)
[2018-10-25] MEDS: HEPARIN SOD 5,000 UNIT/0.5 ML VIAL SQ SCH ×2 (10:05→20:34)
[2018-10-26] MEDS: LEVOTHYROXINE SODIUM 25 MCG TABLET PO SCH (07:00)
[2018-10-26] MEDS: ESCITALOPRAM OXALATE 10 MG TAB PO SCH (11:00)
--- NOTE | 2018-10-26 11:00 | Hospitalist Progress Note ---
Date of Service October 25, 2018 Assessment & Plan (1) Altered mental status: The patient has had progressive decline in cognition since at least 2017. Family reports altered mental status has been associated with hallucinations and depression along with anxiety. This coincides with numerous psychosocial stressors including his son in law having a brain tumor, living alone in an apartment as opposed to living with his , etc. Patient has symptoms been controlled on twice daily Risperdal and Lexapro since 10/21 Previously we have discontinued klonipin on intake Patient is no longer on 1 to 1. This has been the case since I have been on the service since 10/23. Patient is cooperative and has not been wandering the halls. Patient will benefit from inpatient memory unit. Patient does not seem to have capacity to make decisions. (10/25) Awaiting input from office of aging. Started synthroid 25mcg daily. Of note - B12 level in recent past was normal. Psychiatry consult has seen and agrees to medication choices (2) Bradycardia: sinus bradycardia, maybe associated with some of his weakness, this has improved Synthroid started (3) Aortic stenosis: severe, has refused AVR in the past, repeat echo mainly for prognostic purposes for patient and his family does not appear to be in diastolic heart failure patient consists continues to remain euvolemic patient has no evidence of volume overload although CXR checked 10/20 was without pulmonary edema or infection (4) Glaucoma: cont home drops when he allows to be given (5) Hypothyroidism: TSH has been high for some time. started synthroid 25mcg daily. (6) Depression: Cont lexapro. (7) CAD (coronary artery disease): non obstructive based on records. No current symptoms no obvious recent ischemic symptoms. 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 (9) DVT prophylaxis: heparin BID may need PT/OT for placement once is agreeable Disposition maybe to memory unit at [facility] Spent 25 minutes in management of patient. Subjective Patient today is speaking to me in Cymro. Patient is pleasant and cooperative. He again does not have a one to one. He denies any new complaints today. Difficult to obtain Review of systems due to his mental status. Constitutional: + weight loss (since March 2018; 25 pounds; this is despite eating ); no fever and no chills Cardiovascular: + chest pain (occasional - took nitroglycerin) Genitourinary (Male): + nocturia; no difficulty urinating Neurologic: + unsteadiness, + localized weakness (legs) and + behavioral changes Psychiatric: + depression and + anxiety Endocrine: + cold intolerance Hematologic / Lymphatic: + easy bruising Physical Exam 2 Vital Signs (Past 24 Hours): Last Vital Signs Temp 35.7 C 10/25/18 07:00 Pulse 52 10/25/18 07:00 Resp 18 10/25/18 07:00 BP 157/76 10/25/18 07:00 Pulse Ox 95 10/25/18 07:00 Physical Exam: The patient appeared well nourished and normally developed. He is still able to eat and is cooperative. Vital signs as documented. Head exam is unremarkable. normocephalic, atraumatic Neck is without jugular venous distension, thyromegaly, or lymphademopathy Lungs are clear to auscultation and percussion. Cardiac exam reveals Rhythm is regular. First and second heart sounds normal. Abdominal exam reveals normal bowel sounds, no masses, no organomegaly Extremities are nonedematous and both pedal pulses are present Skin is warm Dry without bruises or lesions _ (1) Altered mental status Altered mental status type: unspecified Coma depth: Coma timing: Qualified Code(s): R41.82 - Altered mental status, unspecified (2) Aortic stenosis Cardiac valve disease etiology: etiology unspecified Qualified Code(s): I35.0 - Nonrheumatic aortic (valve) stenosis (3) Glaucoma Glaucoma type: other Open angle glaucoma type: Primary angle closure glaucoma type: Laterality: bilateral Glaucoma stage: Qualified Code(s): H40.89 - Other specified glaucoma (4) Hypothyroidism Hypothyroidism type: unspecified Qualified Code(s): E03.9 - Hypothyroidism, unspecified (5) Depression Depression Type: other depression Major depression recurrence: Active/ Remission status: Major depression episode severity: Psychotic features: Trimester: Qualified Code(s): F32.89 - Other specified depressive episodes (6) CAD (coronary artery disease) Coronary Disease-Associated Artery/Lesion type: unspecified vessel or lesion type [place] vs. transplanted heart: [place] heart Associated angina: without angina Qualified Code(s): I25.10 - Atherosclerotic heart disease of [place] coronary artery without angina pectoris
[2018-10-26] MEDS: ASPIRIN 81 MG ECTAB PO SCH (11:01)
[2018-10-26] MEDS: risperiDONE ODT 0.5 MG SOLTAB PO SCH ×2 (11:01→20:18)
[2018-10-26] MEDS: prednisoLONE acetate 1% OP SUSP 5 ML BTL OPB SCH ×2 (11:01→20:19)
[2018-10-26] MEDS: HEPARIN SOD 5,000 UNIT/0.5 ML VIAL SQ SCH ×2 (11:02→20:20)
[2018-10-26] MEDS: ACETAMINOPHEN 325 MG TAB PO PRN ×2 (14:05→20:18)
[2018-10-26] MEDS: LIDOCAINE 5% 1 PATCH TD SCH (17:10)
--- NOTE | 2018-10-26 23:31 | Hospitalist Progress Note ---
Date of Service October 26, 2018 Assessment & Plan (1) Altered mental status: The patient has had progressive decline in cognition since at least 2017. Family reports altered mental status has been associated with hallucinations and depression along with anxiety. This coincides with numerous psychosocial stressors including his son in law having a brain tumor, living alone in an apartment as opposed to living with his , etc. Patient has symptoms been controlled on twice daily Risperdal and Lexapro since 10/21 Previously we have discontinued klonipin on intake Patient is no longer on 1 to 1. This has been the case since I have been on the service since 10/23. Patient is cooperative and has not been wandering the halls. Patient will benefit from inpatient memory unit. Patient does not have capacity to make decisions as patient lacks insight. (10/26 ) Awaiting further input from office of aging. Started synthroid 25mcg daily. Of note - B12 level in recent past was normal. Psychiatry consult has seen and agrees to medication choices (2) Bradycardia: sinus bradycardia, maybe associated with some of his weakness, this has improved Synthroid started (3) Aortic stenosis: severe, has refused AVR in the past, repeat echo mainly for prognostic purposes for patient and his family does not appear to be in diastolic heart failure patient consists continues to remain euvolemic patient has no evidence of volume overload although CXR checked 10/20 was without pulmonary edema or infection (4) Glaucoma: cont home drops when he allows to be given (5) Hypothyroidism: TSH has been high for some time. started synthroid 25mcg daily. (6) Depression: Cont lexapro. (7) CAD (coronary artery disease): non obstructive based on records. No current symptoms no obvious recent ischemic symptoms. 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 (9) DVT prophylaxis: heparin BID may need PT/OT for placement once is agreeable Disposition maybe to [facility] at [facility] Spent 25 minutes in management of patient. Subjective Patient today is speaking to me in Turkish. Patient is pleasant and cooperative. He again does not have a one to one. Patient reports not remembering me. Difficult to obtain Review of systems due to his mental status. Constitutional: + weight loss (since March 2018; 25 pounds; this is despite eating ); no fever and no chills Cardiovascular: + chest pain (occasional - took nitroglycerin) Genitourinary (Male): + nocturia; no difficulty urinating Neurologic: + unsteadiness, + localized weakness (legs) and + behavioral changes Psychiatric: + depression and + anxiety Endocrine: + cold intolerance Hematologic / Lymphatic: + easy bruising Physical Exam 2 Vital Signs (Past 24 Hours): Last Vital Signs Temp 36.4 C L 10/26/18 15:00 Pulse 85 10/26/18 15:00 Resp 16 10/26/18 15:00 BP 104/69 10/26/18 15:00 Pulse Ox 94 10/26/18 15:00 Physical Exam: The patient appeared well nourished and normally developed. He is still able to eat and is cooperative. Vital signs as documented. Head exam is unremarkable. normocephalic, atraumatic Neck is without jugular venous distension, thyromegaly, or lymphademopathy Lungs are clear to auscultation and percussion. Cardiac exam reveals Rhythm is regular. First and second heart sounds normal. Abdominal exam reveals normal bowel sounds, no masses, no organomegaly Extremities are nonedematous and both pedal pulses are present Skin is warm Dry without bruises or lesions _ (1) CAD (coronary artery disease) Associated angina: without angina Coronary Disease-Associated Artery/Lesion type: unspecified vessel or lesion type [place] vs. transplanted heart: [place] heart Qualified Code(s): I25.10 - Atherosclerotic heart disease of [place] coronary artery without angina pectoris (2) Aortic stenosis Cardiac valve disease etiology: etiology unspecified Qualified Code(s): I35.0 - Nonrheumatic aortic (valve) stenosis (3) Depression Active/Remission status: Depression Type: other depression Major depression episode severity: Major depression recurrence: Psychotic features : Trimester: Qualified Code(s): F32.89 - Other specified depressive episodes (4) Hypothyroidism Hypothyroidism type: unspecified Qualified Code(s): E03.9 - Hypothyroidism, unspecified (5) Altered mental status Altered mental status type: unspecified Coma depth: Coma timing: Qualified Code(s): R41.82 - Altered mental status, unspecified (6) Glaucoma Glaucoma stage: Glaucoma type: other Laterality: bilateral Open angle glaucoma type: Primary angle closure glaucoma type: Qualified Code(s): H40.89 - Other specified glaucoma
[2018-10-27] MEDS: LEVOTHYROXINE SODIUM 25 MCG TABLET PO SCH (05:45)
--- NOTE | 2018-10-27 07:41 | Hospitalist Progress Note ---
Date of Service October 27, 2018 Assessment & Plan (1) Altered mental status: Dementia with delirium and depression likely cause of altered mental status The patient has had progressive decline in cognition since at least 05/2018. Family reports altered mental status has been associated with hallucinations and depression along with anxiety. This coincides with numerous psychosocial stressors including his son in law having a brain tumor, living alone in an apartment as opposed to living with his , etc. Patient has symptoms been controlled on twice daily Risperdal and Lexapro since 10/21 Previously we have discontinued klonipin on intake Patient is no longer on to . This has been the case since I have been on the service since 10/23. Patient is cooperative and has not been wandering the halls. Patient will benefit from inpatient memory unit. Patient does not have capacity to make decisions as patient lacks insight. (10/27) Awaiting further input from office of aging. Started synthroid 25mcg daily. Of note - B12 level in recent past was normal. Psychiatry consult has seen and agrees to medication choices (2) Bradycardia: sinus bradycardia, maybe associated with some of his weakness, this has improved Synthroid started (3) Aortic stenosis: severe, has refused AVR in the past, repeat echo mainly for prognostic purposes for patient and his family does not appear to be in diastolic heart failure patient consists continues to remain euvolemic patient has no evidence of volume overload although CXR checked 10/20 was without pulmonary edema or infection (4) Glaucoma: cont home drops when he allows to be given (5) Hypothyroidism: TSH has been high for some time. started synthroid 25mcg daily. (6) Depression: Cont lexapro. (7) CAD (coronary artery disease): non obstructive based on records. No current symptoms no obvious recent ischemic symptoms. 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 (9) DVT prophylaxis: heparin BID may need PT/OT for placement once is agreeable Disposition maybe to memory unit at [facility] Spent 25 minutes in management of patient. Awaiting placement Subjective Patient today is agains is only speaking to me in [place]. Patient is pleasant and cooperative. He again does not have a one to one. He allows me to do an exam on him. Difficult to obtain Review of systems due to his mental status. Constitutional: + weight loss (since March 2018; 25 pounds; this is despite eating ); no fever and no chills Cardiovascular: + chest pain (occasional - took nitroglycerin) Genitourinary (Male): + nocturia; no difficulty urinating Neurologic: + unsteadiness, + localized weakness (legs) and + behavioral changes Psychiatric: + depression and + anxiety Endocrine: + cold intolerance Hematologic / Lymphatic: + easy bruising Physical Exam 2 Vital Signs (Past 24 Hours): Last Vital Signs Temp 36.4 C L 10/27/18 07:27 Pulse 63 10/27/18 07:27 Resp 20 10/27/18 07:27 BP 145/84 H 10/27/18 07:27 Pulse Ox 96 10/27/18 07:27 Physical Exam: The patient appeared well nourished and normally developed. He is still able to eat and is cooperative. Vital signs as documented. Head exam is unremarkable. normocephalic, atraumatic Neck is without jugular venous distension, thyromegaly, or lymphademopathy Lungs are clear to auscultation and percussion. Cardiac exam reveals Rhythm is regular. First and second heart sounds normal. Abdominal exam reveals normal bowel sounds, no masses, no organomegaly Extremities are nonedematous and both pedal pulses are present Skin is warm Dry without bruises or lesions _ (1) CAD (coronary artery disease) Associated angina: without angina Coronary Disease-Associated Artery/Lesion type: unspecified vessel or lesion type [place] vs. transplanted heart: [place] heart Qualified Code(s): I25.10 - Atherosclerotic heart disease of [place] coronary artery without angina pectoris (2) Aortic stenosis Cardiac valve disease etiology: etiology unspecified Qualified Code(s): I35.0 - Nonrheumatic aortic (valve) stenosis (3) Depression Active/Remission status: Depression Type: other depression Major depression episode severity: Major depression recurrence: Psychotic features : Trimester: Qualified Code(s): F32.89 - Other specified depressive episodes (4) Hypothyroidism Hypothyroidism type: unspecified Qualified Code(s): E03.9 - Hypothyroidism, unspecified (5) Altered mental status Altered mental status type: unspecified Coma depth: Coma timing: Qualified Code(s): R41.82 - Altered mental status, unspecified (6) Glaucoma Glaucoma stage: Glaucoma type: other Laterality: bilateral Open angle glaucoma type: Primary angle closure glaucoma type: Qualified Code(s): H40.89 - Other specified glaucoma
[2018-10-27] MEDS: prednisoLONE acetate 1% OP SUSP 5 ML BTL OPB SCH ×2 (08:42→22:06)
[2018-10-27] MEDS: ASPIRIN 81 MG ECTAB PO SCH (08:42)
[2018-10-27] MEDS: ESCITALOPRAM OXALATE 10 MG TAB PO SCH (08:42)
[2018-10-27] MEDS: HEPARIN SOD 5,000 UNIT/0.5 ML VIAL SQ SCH ×2 (08:42→22:06)
[2018-10-27] MEDS: risperiDONE ODT 0.5 MG SOLTAB PO SCH ×2 (08:42→19:59)
[2018-10-27] MEDS: LIDOCAINE 5% 1 PATCH TD SCH (08:43)
[2018-10-28] MEDS: LEVOTHYROXINE SODIUM 25 MCG TABLET PO SCH (06:28)
[2018-10-28 06:59] LABS: Hematocrit (blood only) 40.2 % (42-52); Hemoglobin 13.2 g/dL (14.0-18.0); Mean Corpuscular Hgb Conc 32.8 g/dL (32-36); Mean Corpuscular Volume 96.2 fL (80-100); Mean Platelet Volume 10.2 fL (7.4-10.4); Platelet Count 245 K/uL (130-400); RDW Standard Deviation 44.9 fL (36.4-46.3); Red Blood Count 4.18 M/uL (4.7-6.1); White Blood Count 4.99 K/uL (4.8-10.8)
[2018-10-28] MEDS: LIDOCAINE 5% 1 PATCH TD SCH (07:28)
[2018-10-28] MEDS: HEPARIN SOD 5,000 UNIT/0.5 ML VIAL SQ SCH ×2 (07:28→20:17)
[2018-10-28] MEDS: ESCITALOPRAM OXALATE 10 MG TAB PO SCH (07:29)
[2018-10-28] MEDS: ASPIRIN 81 MG ECTAB PO SCH (07:29)
[2018-10-28] MEDS: risperiDONE ODT 0.5 MG SOLTAB PO SCH ×2 (07:29→20:16)
[2018-10-28] MEDS: prednisoLONE acetate 1% OP SUSP 5 ML BTL OPB SCH ×2 (07:33→20:18)
--- NOTE | 2018-10-28 09:32 | Hospitalist Progress Note ---
Date of Service October 28, 2018 Assessment & Plan (1) Altered mental status: Dementia with delirium and depression likely cause of altered mental status The patient has had progressive decline in cognition since at least 05/2018. Family reports altered mental status has been associated with hallucinations and depression along with anxiety. This coincides with numerous psychosocial stressors including his son in law having a brain tumor, living alone in an apartment as opposed to living with his , etc. Patient has symptoms been controlled on twice daily Risperdal and Lexapro since 10/21 Previously we have discontinued klonipin on intake Patient is no longer on 1 to . This has been the case since I have been on the service since 10/23. Patient is cooperative and has not been wandering the halls. Patient will benefit from inpatient memory unit. Patient does not have capacity to make decisions as patient lacks insight. (10/28) Awaiting further input from office of aging. Started synthroid 25mcg daily. Of note - B12 level in recent past was normal. Psychiatry consult has seen and agrees to medication choices (2) Bradycardia: sinus bradycardia, maybe associated with some of his weakness, this has improved Synthroid started (3) Aortic stenosis: severe, has refused AVR in the past, repeat echo mainly for prognostic purposes for patient and his family does not appear to be in diastolic heart failure patient consists continues to remain euvolemic patient has no evidence of volume overload although CXR checked 10/20 was without pulmonary edema or infection (4) Glaucoma: cont home drops when he allows to be given (5) Hypothyroidism: TSH has been high for some time. started synthroid 25mcg daily. (6) Depression: Cont lexapro. (7) CAD (coronary artery disease): non obstructive based on records. No current symptoms no obvious recent ischemic symptoms. 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 (9) DVT prophylaxis: heparin BID may need PT/OT for placement once is agreeable Disposition maybe to memory unit at [facility] Spent 25 minutes in management of patient. Awaiting placement Subjective Patient today is speaking in Yakut. Patient is pleasant and cooperative but is a poor historian. He states he is located [facility] the [facility] the [facility]. He denies any complaints. He again does not have a one to one. He allows me to do an exam on him. Difficult to obtain Review of systems due to his mental status. Constitutional: + weight loss (since March 2018; 25 pounds; this is despite eating ); no fever and no chills Cardiovascular: + chest pain (occasional - took nitroglycerin) Genitourinary (Male): + nocturia; no difficulty urinating Neurologic: + unsteadiness, + localized weakness (legs) and + behavioral changes Psychiatric: + depression and + anxiety Endocrine: + cold intolerance Hematologic / Lymphatic: + easy bruising Physical Exam 2 Vital Signs (Past 24 Hours): Last Vital Signs Temp 36.4 C L 10/28/18 07:54 Pulse 62 10/28/18 07:54 Resp 20 10/28/18 07:54 BP 135/81 10/28/18 07:54 Pulse Ox 92 10/28/18 07:54 Physical Exam: The patient appeared well nourished and normally developed. He is still able to eat and is cooperative. Vital signs as documented. Head exam is unremarkable. normocephalic, atraumatic Neck is without jugular venous distension, thyromegaly, or lymphademopathy Lungs are clear to auscultation and percussion. Cardiac exam reveals Rhythm is regular. First and second heart sounds normal. Abdominal exam reveals normal bowel sounds, no masses, no organomegaly Extremities are nonedematous and both pedal pulses are present Skin is warm Dry without bruises or lesions _ (1) Altered mental status Altered mental status type: unspecified Coma depth: Coma timing: Qualified Code(s): R41.82 - Altered mental status, unspecified (2) Aortic stenosis Cardiac valve disease etiology: etiology unspecified Qualified Code(s): I35.0 - Nonrheumatic aortic (valve) stenosis (3) Glaucoma Glaucoma type: other Open angle glaucoma type: Primary angle closure glaucoma type: Laterality: bilateral Glaucoma stage: Qualified Code(s): H40.89 - Other specified glaucoma (4) Hypothyroidism Hypothyroidism type: unspecified Qualified Code(s): E03.9 - Hypothyroidism, unspecified (5) Depression Depression Type: other depression Major depression recurrence: Active/ Remission status: Major depression episode severity: Psychotic features: Trimester: Qualified Code(s): F32.89 - Other specified depressive episodes (6) CAD (coronary artery disease) Coronary Disease-Associated Artery/Lesion type: unspecified vessel or lesion type [place] vs. transplanted heart: [place] heart Associated angina: without angina Qualified Code(s): I25.10 - Atherosclerotic heart disease of [place] coronary artery without angina pectoris
[2018-10-28] MEDS: ACETAMINOPHEN 325 MG TAB PO PRN (16:18)
[2018-10-29] MEDS: LEVOTHYROXINE SODIUM 25 MCG TABLET PO SCH (06:18)
[2018-10-29] MEDS: ESCITALOPRAM OXALATE 10 MG TAB PO SCH (08:54)
[2018-10-29] MEDS: prednisoLONE acetate 1% OP SUSP 5 ML BTL OPB SCH ×2 (08:54→20:11)
[2018-10-29] MEDS: ASPIRIN 81 MG ECTAB PO SCH (08:54)
[2018-10-29] MEDS: HEPARIN SOD 5,000 UNIT/0.5 ML VIAL SQ SCH ×2 (08:55→20:08)
[2018-10-29] MEDS: LIDOCAINE 5% 1 PATCH TD SCH (08:55)
[2018-10-29] MEDS: risperiDONE ODT 0.5 MG SOLTAB PO SCH ×2 (08:55→20:11)
--- NOTE | 2018-10-29 12:32 | Hospitalist Progress Note ---
Date of Service October 29, 2018 Assessment & Plan (1) Altered mental status: Dementia with delirium and depression likely cause of altered mental status The patient has had progressive decline in cognition since at least 05/2018. Family reports altered mental status has been associated with hallucinations and depression along with anxiety. This coincides with numerous psychosocial stressors including his son in law having a brain tumor, living alone in an apartment as opposed to living with his , etc. Patient has symptoms been controlled on twice daily Risperdal and Lexapro since 10/21 Previously we have discontinued klonipin on intake Patient is no longer on to . This has been the case since I have been on the service since 10/23. Patient is cooperative and has not been wandering the halls. Patient will benefit from inpatient memory unit. Patient does not have capacity to make decisions as patient lacks insight. (2/3) Awaiting further input from office of aging. Daughter is working on paperwork to help with placement of patient. Case mangement is aware. Started synthroid 25mcg daily. Of note - B12 level in recent past was normal. Psychiatry consult has seen and agrees to medication choices (2) Bradycardia: sinus bradycardia, maybe associated with some of his weakness, this has improved Synthroid started (3) Aortic stenosis: severe, has refused AVR in the past, repeat echo mainly for prognostic purposes for patient and his family does not appear to be in diastolic heart failure patient consists continues to remain euvolemic patient has no evidence of volume overload although CXR checked 10/20 was without pulmonary edema or infection (4) Glaucoma: cont home drops when he allows to be given (5) Hypothyroidism: TSH has been high for some time. started synthroid 25mcg daily. (6) Depression: Cont lexapro. (7) CAD (coronary artery disease): non obstructive based on records. No current symptoms no obvious recent ischemic symptoms. 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 (9) DVT prophylaxis: heparin BID may need PT/OT for placement once is agreeable Disposition maybe to memory unit at [facility] Spent 25 minutes in management of patient. Awaiting placement Subjective Patient today is speaking in [place]. Patient is pleasant and cooperative but is a poor historian. He denies any complaints. He again does not have a one to one. He allows me to do an exam on him. Difficult to obtain Review of systems due to his mental status. Constitutional: + weight loss (since March 2018; 25 pounds; this is despite eating ); no fever and no chills Cardiovascular: + chest pain (occasional - took nitroglycerin) Genitourinary (Male): + nocturia; no difficulty urinating Neurologic: + unsteadiness, + localized weakness (legs) and + behavioral changes Psychiatric: + depression and + anxiety Endocrine: + cold intolerance Hematologic / Lymphatic: + easy bruising Physical Exam 2 Vital Signs (Past 24 Hours): Last Vital Signs Temp 36.4 C L 10/29/18 08:18 Pulse 60 10/29/18 08:18 Resp 18 10/29/18 08:18 BP 149/80 H 10/29/18 08:18 Pulse Ox 97 10/29/18 08:18 Physical Exam: The patient appeared well nourished and normally developed. He is still able to eat and is cooperative. Vital signs as documented. Head exam is unremarkable. normocephalic, atraumatic Neck is without jugular venous distension, thyromegaly, or lymphademopathy Lungs are clear to auscultation and percussion. Cardiac exam reveals Rhythm is regular. First and second heart sounds normal. Abdominal exam reveals normal bowel sounds, no masses, no organomegaly Extremities are nonedematous and both pedal pulses are present Skin is warm Dry without bruises or lesions _ (1) CAD (coronary artery disease) Associated angina: without angina Coronary Disease-Associated Artery/Lesion type: unspecified vessel or lesion type [place] vs. transplanted heart: [place] heart Qualified Code(s): I25.10 - Atherosclerotic heart disease of [place] coronary artery without angina pectoris (2) Aortic stenosis Cardiac valve disease etiology: etiology unspecified Qualified Code(s): I35.0 - Nonrheumatic aortic (valve) stenosis (3) Depression Active/Remission status: Depression Type: other depression Major depression episode severity: Major depression recurrence: Psychotic features : Trimester: Qualified Code(s): F32.89 - Other specified depressive episodes (4) Hypothyroidism Hypothyroidism type: unspecified Qualified Code(s): E03.9 - Hypothyroidism, unspecified (5) Altered mental status Altered mental status type: unspecified Coma depth: Coma timing: Qualified Code(s): R41.82 - Altered mental status, unspecified (6) Glaucoma Glaucoma stage: Glaucoma type: other Laterality: bilateral Open angle glaucoma type: Primary angle closure glaucoma type: Qualified Code(s): H40.89 - Other specified glaucoma
[2018-10-29] MEDS: DOCUSATE SODIUM/SENNA 50/8.6MG TAB PO SCH (15:21)
[2018-10-30] MEDS: LEVOTHYROXINE SODIUM 25 MCG TABLET PO SCH (06:20)
[2018-10-30] MEDS: prednisoLONE acetate 1% OP SUSP 5 ML BTL OPB SCH ×2 (07:35→20:48)
[2018-10-30] MEDS: risperiDONE ODT 0.5 MG SOLTAB PO SCH ×2 (07:36→20:48)
[2018-10-30] MEDS: DOCUSATE SODIUM/SENNA 50/8.6MG TAB PO SCH (07:36)
[2018-10-30] MEDS: ASPIRIN 81 MG ECTAB PO SCH (07:37)
[2018-10-30] MEDS: ESCITALOPRAM OXALATE 10 MG TAB PO SCH (07:37)
[2018-10-30] MEDS: HEPARIN SOD 5,000 UNIT/0.5 ML VIAL SQ SCH ×2 (07:37→20:49)
[2018-10-30] MEDS: LIDOCAINE 5% 1 PATCH TD SCH (07:39)
[2018-10-30] MEDS ORDERED: POLYETHYLENE (MIRALAX) 17 GM PACK PO PRN ×2 (14:12→14:57)
[2018-10-30] MEDS ORDERED: BISACODYL 10 MG SUPP PR PRN (14:12)
[2018-10-30] MEDS ORDERED: POLYETHYLENE (MIRALAX) 17 GM PACK ONE (14:29)
--- NOTE | 2018-10-30 15:15 | Hospitalist Progress Note ---
Date of Service October 30, 2018 Assessment & Plan (1) Altered mental status: Dementia with delirium and depression likely cause of altered mental status The patient has had progressive decline in cognition since at least 05/2018. Family reports altered mental status has been associated with hallucinations and depression along with anxiety. This coincides with numerous psychosocial stressors including his son in law having a brain tumor, living alone in an apartment as opposed to living with his , etc. Patient has symptoms been controlled on twice daily Risperdal and Lexapro since 10/21 Klonopin stopped on admission Psychiatry consult has seen and agrees to medication choices (2) Bradycardia: sinus bradycardia, maybe associated with some of his weakness, this has improved Synthroid started (3) Aortic stenosis: severe, has refused AVR in the past, repeat echo mainly for prognostic purposes for patient and his family does not appear to be in diastolic heart failure patient consists continues to remain euvolemic patient has no evidence of volume overload although CXR checked 10/20 was without pulmonary edema or infection (4) Glaucoma: cont home drops when he allows to be given (5) Hypothyroidism: TSH has been high for some time. started synthroid 25mcg daily. (6) Depression: Cont lexapro. (7) CAD (coronary artery disease): non obstructive based on records. No current symptoms no obvious recent ischemic symptoms. 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 (9) Constipation: add Miralax BID for constipation, refused suppository patient eating well, ambulating the halls (10) DVT prophylaxis: heparin BID Plan: placement at [facility] once target process completed Subjective patient feeling well, only complaint is that he cannot move his bowels several days since last BM he is eating well, no abdominal pain, no nausea or vomiting breathing is stable he is ambulating independently in his room and in the hallway d/w , awaiting placement at [facility] Review of Systems All systems reviewed & are unremarkable except as noted in HPI & below Respiratory: no dyspnea Cardiovascular: no chest pain Gastrointestinal: + constipation; no abdominal pain, no nausea and no vomiting Physical Exam 2 Vital Signs (Past 24 Hours): Last Vital Signs Temp 36.6 C 10/30/18 07:50 Pulse 74 10/30/18 07:50 Resp 18 10/30/18 07:50 BP 124/78 10/30/18 07:50 Pulse Ox 97 10/30/18 07:50 Constitutional: WD/WN, vitals as above Eyes: PERRL, conjunctivae normal, anicteric sclerae ENMT: external ear and nose normal, oropharynx normal Neck: trachea midline, no thyromegaly Respiratory: normal respiratory effort, lungs clear to auscultation Cardiovascular: RRR, no murmur, no edema Gastrointestinal (Abdomen): normal bowel sounds, soft, nontender, no hepatosplenomegaly Percussion/Palpation: + dullness to percussion (left sided ) Musculoskeletal: no cyanosis or clubbing, extremities motor strength 5/5 Skin: no rashes, warm and dry Neurologic: patellar DTR's 2+ bilat, sensation intact and PERRL, EOMI, accommodation nl, no face palsy, no dysarthria Psychiatric: A+Ox3, euthymic affect Lymphatic: no cervical or axillary lymphadenopathy Results & Data Medications Administered Current Inpatient Medications Acetaminophen (Tylenol) 650 mg PO Q4H PRN PRN Reason: Pain or Fever Stop: 11/15/18 21:22 Last Admin: 10/28/18 16:18 Dose: 650 mg Aspirin (Ecotrin Ectab) 81 mg PO DAILY [facility] Stop: 11/16/18 08:59 Last Admin: 10/30/18 07:37 Dose: 81 mg Bisacodyl (Dulcolax) 10 mg [place] DAILY PRN PRN Reason: Constipation Stop: 11/29/18 14:11 Chlorpromazine HCl (Thorazine) 12.5 mg IM Q8 PRN PRN Reason: Agitation Stop: 11/19/18 15:06 Escitalopram Oxalate (Lexapro) 10 mg PO DAILY [facility] Stop: 11/16/18 08:59 Last Admin: 10/30/18 07:37 Dose: 10 mg Haloperidol Lactate (Haldol) 5 mg IM Q8 PRN PRN Reason: Agitation Stop: 11/19/18 14:39 Last Admin: 10/27/18 20:00 Dose: 5 mg Heparin Sodium (Beef Lung) (Heparin Sod 10 Unit/Ml Flush) 5 ml FLUSH PRN PRN PRN Reason: PICC Line Stop: 11/22/18 14:03 Heparin Sodium (Porcine) (Heparin Sodium (Porcine)) 5,000 units SQ Q12 [facility] Stop: 11/15/18 22:59 Last Admin: 10/30/18 07:37 Dose: 5,000 units Lorazepam (Ativan) 1 mg in 2 mls @ 2 mls/min IV ONE PRN; Protocol PRN Reason: ARMHOLE RAISER LOCKSTITCH TO MRI Stop: 11/16/18 16:21 Last Admin: 10/20/18 01:53 Dose: 2 mls/min Lorazepam (Ativan) 0.5 mg in 1 mls @ 1 mls/min IV Q4H PRN PRN Reason: Agitation Stop: 11/19/18 14:39 Last Admin: 10/22/18 11:56 Dose: 1 mls/min Levothyroxine Sodium (Synthroid) 25 mcg PO DAILYBB [facility] Stop: 11/16/18 06:29 Last Admin: 10/30/18 06:20 Dose: 25 mcg Lidocaine (Lidoderm 5%) 1 patch TD QAM [facility] Stop: 11/25/18 15:59 Last Admin: 10/30/18 07:39 Dose: Not Given Miscellaneous (Remove Lidoderm Patch) 1 ea N/A DAILY@2100 [facility] Stop: 11/25/18 20:59 Last Admin: 10/29/18 20:11 Dose: 1 ea Ondansetron HCl (Zofran) 4 mg IV Q6H PRN PRN Reason: Nausea Stop: 11/15/18 21:22 Polyethylene Glycol (Miralax Powder Packet) 17 gm PO BID PRN PRN Reason: Constipation Stop: 11/29/18 14:11 Prednisolone Acetate (Pred Forte 1%) 1 drops OPB BID [facility] Stop: 11/15/18 21:22 Last Admin: 10/30/18 07:35 Dose: 1 drops Risperidone (Risperdal M) 0.5 mg PO BID NAT Stop: 11/19/18 20:59 Last Admin: 10/30/18 07:36 Dose: 0.5 mg Senna/Docusate Sodium (Senokot S) 1 tab PO QAM [facility] Stop: 11/28/18 14:59 Last Admin: 10/30/18 07:36 Dose: 1 tab _ (1) CAD (coronary artery disease) Associated angina: without angina Coronary Disease-Associated Artery/Lesion type: unspecified vessel or lesion type [place] vs. transplanted heart: [place] heart Qualified Code(s): I25.10 - Atherosclerotic heart disease of [place] coronary artery without angina pectoris (2) Aortic stenosis Cardiac valve disease etiology: etiology unspecified Qualified Code(s): I35.0 - Nonrheumatic aortic (valve) stenosis (3) Depression Active/Remission status: Depression Type: other depression Major depression episode severity: Major depression recurrence: Psychotic features : Trimester: Qualified Code(s): F32.89 - Other specified depressive episodes (4) Hypothyroidism Hypothyroidism type: unspecified Qualified Code(s): E03.9 - Hypothyroidism, unspecified (5) Altered mental status Altered mental status type: unspecified Coma depth: Coma timing: Qualified Code(s): R41.82 - Altered mental status, unspecified (6) Glaucoma Glaucoma stage: Glaucoma type: other Laterality: bilateral Open angle glaucoma type: Primary angle closure glaucoma type: Qualified Code(s): H40.89 - Other specified glaucoma
[2018-10-31] MEDS: LEVOTHYROXINE SODIUM 25 MCG TABLET PO SCH (06:04)
[2018-10-31 06:53] LABS: Hematocrit (blood only) 38.1 % (42-52); Hemoglobin 12.7 g/dL (14.0-18.0); Mean Corpuscular Hgb Conc 33.3 g/dL (32-36); Mean Corpuscular Volume 96.5 fL (80-100); Mean Platelet Volume 9.8 fL (7.4-10.4); Platelet Count 269 K/uL (130-400); RDW Coefficient of Variation 12.9 % (11.5-14.5); RDW Standard Deviation 45.6 fL (36.4-46.3); Red Blood Count 3.95 M/uL (4.7-6.1); White Blood Count 4.71 K/uL (4.8-10.8)
[2018-10-31] MEDS: risperiDONE ODT 0.5 MG SOLTAB PO SCH ×2 (07:26→20:52)
[2018-10-31] MEDS: ESCITALOPRAM OXALATE 10 MG TAB PO SCH (07:26)
[2018-10-31] MEDS: prednisoLONE acetate 1% OP SUSP 5 ML BTL OPB SCH ×2 (07:26→20:51)
[2018-10-31] MEDS: DOCUSATE SODIUM/SENNA 50/8.6MG TAB PO SCH (07:26)
[2018-10-31] MEDS: ASPIRIN 81 MG ECTAB PO SCH (07:26)
[2018-10-31] MEDS: LIDOCAINE 5% 1 PATCH TD SCH (07:26)
[2018-10-31] MEDS: HEPARIN SOD 5,000 UNIT/0.5 ML VIAL SQ SCH ×2 (07:27→20:51)
--- NOTE | 2018-10-31 13:14 | Hospitalist Progress Note ---
Date of Service October 31, 2018 Assessment & Plan (1) Altered mental status: Dementia with delirium and depression likely cause of altered mental status The patient has had progressive decline in cognition since at least 05/2018. Family reports altered mental status has been associated with hallucinations and depression along with anxiety. This coincides with numerous psychosocial stressors including his son in law having a brain tumor, living alone in an apartment as opposed to living with his , etc. Patient has symptoms been controlled on twice daily Risperdal and Lexapro since 10/21 Klonopin stopped on admission Psychiatry consult has seen and agrees to medication choices mood is stable (2) Bradycardia: sinus bradycardia, maybe associated with some of his weakness, this has improved (3) Aortic stenosis: severe, has refused AVR in the past, repeat echo mainly for prognostic purposes for patient and his family does not appear to be in diastolic heart failure patient consists continues to remain euvolemic patient has no evidence of volume overload although CXR checked 10/20 was without pulmonary edema or infection (4) Glaucoma: cont home drops when he allows to be given (5) Hypothyroidism: TSH has been high for some time. started synthroid 25mcg daily. continue on discharge (6) Depression: Cont lexapro. (7) CAD (coronary artery disease): non obstructive based on records. No current symptoms no obvious recent ischemic symptoms. 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 (9) Constipation: add Miralax BID for constipation, refused suppository patient eating well, ambulating the halls small on 10/30, continue to monitor (10) DVT prophylaxis: heparin BID Plan: placement at [facility] once target process completed spoke with CM, hoping for Tuesday for placement Subjective patient moved bowels yesterday according to RN however, patient does not remember he is in no distress, resting comfortably, waiting to go to SNF vitals stable Review of Systems All systems reviewed & are unremarkable except as noted in HPI & below Gastrointestinal: + constipation (resolving) Physical Exam 2 Vital Signs (Past 24 Hours): Last Vital Signs Temp 36.9 C 10/31/18 07:38 Pulse 60 10/31/18 07:38 Resp 18 10/31/18 07:38 BP 145/80 H 10/31/18 07:38 Pulse Ox 97 10/31/18 07:38 Constitutional: WD/WN, vitals as above Eyes: PERRL, conjunctivae normal, anicteric sclerae ENMT: external ear and nose normal, oropharynx normal Neck: trachea midline, no thyromegaly Respiratory: normal respiratory effort, lungs clear to auscultation Cardiovascular: RRR, no murmur, no edema Gastrointestinal (Abdomen): normal bowel sounds, soft, nontender, no hepatosplenomegaly Musculoskeletal: no cyanosis or clubbing, extremities motor strength 5/5 Skin: no rashes, warm and dry Neurologic: patellar DTR's 2+ bilat, sensation intact and PERRL, EOMI, accommodation nl, no face palsy, no dysarthria Psychiatric: A+Ox3, euthymic affect Lymphatic: no cervical or axillary lymphadenopathy Results & Data Laboratory Results Laboratory Results - last 24 hr 10/31/18 06:32 WBC 4.71 L RBC 3.95 L Hgb 12.7 L Hct 38.1 L MCV 96.5 MCH 32.2 MCHC 33.3 RDW Std Deviation 45.6 RDW Coeff of Jeremiah 12.9 Plt Count 269 MPV 9.8 Medications Administered Current Inpatient Medications Acetaminophen (Tylenol) 650 mg PO Q4H PRN PRN Reason: Pain or Fever Stop: 11/15/18 21:22 Last Admin: 10/28/18 16:18 Dose: 650 mg Aspirin (Ecotrin Ectab) 81 mg PO DAILY [facility] Stop: 11/16/18 08:59 Last Admin: 10/31/18 07:26 Dose: 81 mg Bisacodyl (Dulcolax) 10 mg [place] DAILY PRN PRN Reason: Constipation Stop: 11/29/18 14:11 Chlorpromazine HCl (Thorazine) 12.5 mg IM Q8 PRN PRN Reason: Agitation Stop: 11/19/18 15:06 Escitalopram Oxalate (Lexapro) 10 mg PO DAILY [facility] Stop: 11/16/18 08:59 Last Admin: 10/31/18 07:26 Dose: 10 mg Haloperidol Lactate (Haldol) 5 mg IM Q8 PRN PRN Reason: Agitation Stop: 11/19/18 14:39 Last Admin: 10/27/18 20:00 Dose: 5 mg Heparin Sodium (Beef Lung) (Heparin Sod 10 Unit/Ml Flush) 5 ml FLUSH PRN PRN PRN Reason: PICC Line Stop: 11/22/18 14:03 Heparin Sodium (Porcine) (Heparin Sodium (Porcine)) 5,000 units SQ Q12 [facility] Stop: 11/15/18 22:59 Last Admin: 10/31/18 07:27 Dose: 5,000 units Lorazepam (Ativan) 1 mg in 2 mls @ 2 mls/min IV ONE PRN; Protocol PRN Reason: SHIP FITTER TO MRI Stop: 11/16/18 16:21 Last Admin: 10/20/18 01:53 Dose: 2 mls/min Lorazepam (Ativan) 0.5 mg in 1 mls @ 1 mls/min IV Q4H PRN PRN Reason: Agitation Stop: 11/19/18 14:39 Last Admin: 10/22/18 11:56 Dose: 1 mls/min Levothyroxine Sodium (Synthroid) 25 mcg PO DAILYBB [facility] Stop: 11/16/18 06:29 Last Admin: 10/31/18 06:04 Dose: 25 mcg Lidocaine (Lidoderm 5%) 1 patch TD QAM [facility] Stop: 11/25/18 15:59 Last Admin: 10/31/18 07:26 Dose: 1 patch Miscellaneous (Remove Lidoderm Patch) 1 ea N/A DAILY@2100 [facility] Stop: 11/25/18 20:59 Last Admin: 10/30/18 20:54 Dose: 1 ea Ondansetron HCl (Zofran) 4 mg IV Q6H PRN PRN Reason: Nausea Stop: 11/15/18 21:22 Polyethylene Glycol (Miralax Powder Packet) 17 gm PO BID PRN PRN Reason: Constipation Stop: 11/29/18 14:11 Prednisolone Acetate (Pred Forte 1%) 1 drops OPB BID [facility] Stop: 11/15/18 21:22 Last Admin: 10/31/18 07:26 Dose: 1 drops Risperidone (Risperdal M) 0.5 mg PO BID [facility] Stop: 11/19/18 20:59 Last Admin: 10/31/18 07:26 Dose: 0.5 mg Senna/Docusate Sodium (Senokot S) 1 tab PO QAM [facility] Stop: 11/28/18 14:59 Last Admin: 10/31/18 07:26 Dose: 1 tab _ (1) Altered mental status Altered mental status type: unspecified Coma depth: Coma timing: Qualified Code(s): R41.82 - Altered mental status, unspecified (2) Aortic stenosis Cardiac valve disease etiology: etiology unspecified Qualified Code(s): I35.0 - Nonrheumatic aortic (valve) stenosis (3) Glaucoma Glaucoma type: other Open angle glaucoma type: Primary angle closure glaucoma type: Laterality: bilateral Glaucoma stage: Qualified Code(s): H40.89 - Other specified glaucoma (4) Hypothyroidism Hypothyroidism type: unspecified Qualified Code(s): E03.9 - Hypothyroidism, unspecified (5) Depression Depression Type: other depression Major depression recurrence: Active/ Remission status: Major depression episode severity: Psychotic features: Trimester: Qualified Code(s): F32.89 - Other specified depressive episodes (6) CAD (coronary artery disease) Coronary Disease-Associated Artery/Lesion type: unspecified vessel or lesion type [place] vs. transplanted heart: [place] heart Associated angina: without angina Qualified Code(s): I25.10 - Atherosclerotic heart disease of [place] coronary artery without angina pectoris
[2018-11-01] MEDS: LEVOTHYROXINE SODIUM 25 MCG TABLET PO SCH (06:34)
[2018-11-01] MEDS: HEPARIN SOD 5,000 UNIT/0.5 ML VIAL SQ SCH (07:44)
[2018-11-01] MEDS: ASPIRIN 81 MG ECTAB PO SCH (07:45)
[2018-11-01] MEDS: prednisoLONE acetate 1% OP SUSP 5 ML BTL OPB SCH (07:45)
[2018-11-01] MEDS: DOCUSATE SODIUM/SENNA 50/8.6MG TAB PO SCH (07:45)
[2018-11-01] MEDS: risperiDONE ODT 0.5 MG SOLTAB PO SCH (07:45)
[2018-11-01] MEDS: ESCITALOPRAM OXALATE 10 MG TAB PO SCH (07:45)
[2018-11-01] MEDS: LIDOCAINE 5% 1 PATCH TD SCH (07:45)
--- NOTE | 2018-11-01 14:13 | Discharge Summary ---
Date of Service November 01, 2018 Admission HPI Per Admitting Provider 88 yo CM with history per chart review of CAD, hypothyroid, depression admitted for acute mental status changes. Psychiatry consulted for evaluation of possible contribution of depression to his presentation. Patient on exam is with delirium and no meaningful assessment could be completed. He speaks about getting his shirts and going home and was unable to answer what his name was due to confusion and delirium. Patient has a 1:1 sitter in the room as well as he keeps trying to get out of bed. Below autopopulated from chart: 88yo [place] male who presents from home secondary to worsening confusion and hallucinations for several weeks. Due to the patient's mental status all of the history was obtained from his daughter at bedside. Most of his hallucinations have been visual. No auditory hallucinations. He has been living alone in an apartment (his is alive but he and his have been living separately for some time). The patient's lives with the daughter. At times he has told the family he doesn't know where he is. Since May 2018 he has had anxiety and depression. He has had trouble sleeping. He was started on an antidepressant (lexapro) in the fall as well as klonipin at bedtime for sleep. He has voiced to his daughter that he is tired of living. He has had a difficult time recognizing people recently. He has had difficulty with orientation and knowing the date/time. Over the last 2-3 days he stayed with his daughter and the daughter noted severe agitation, severe disorientation, couldn't recognize family members, had paranoid thoughts, etc. Last night he was wandering throughout the house and never slept. Today his daughter found him at the door and he told her he was leaving. This concerned the daughter that he would get outside and wander/get lost. Thus, she brought him to the ER for evaluation. Admission Exam Per Admitting Provider Constitutional: average body habitus; no acute distress agitated at times, stating he was leaving Eyes: PERRL (lens implants b/l ) ENMT: external ear and nose normal, oropharynx normal Ears: no TM abnormality Mouth: no oral mucosal abnormality and no tongue abnormality Neck: trachea midline, no thyromegaly Respiratory: normal respiratory effort, lungs clear to auscultation Cardiovascular: Rate/Rhythm: regular rate and regular rhythm Heart Sounds: normal S1 and + murmur (2/6 holosystolic, RUSB, transmits to right neck); + abnormal S2 (s2 is very difficult to hear) Vessels: posterior tibial pulses present and dorsalis pedis pulses present; no JVD Extremities: no pedal edema Gastrointestinal (Abdomen): normal bowel sounds, soft, nontender, no hepatosplenomegaly Musculoskeletal: no cyanosis or clubbing, extremities motor strength 5/5 Skin: no rashes, warm and dry Neurologic: plantar reflexes intact bilaterally and moves all extremities; no focal motor deficits Psychiatric: Orientation: alert; + not oriented x 3 (thought it was "Tuesday or Tuesday" but knew the year) Lymphatic: no cervical lymphadenopathy Principal Diagnosis Dementia with behavioral disturbance Discharge Exam Constitutional WD/WN, vitals as above Eyes PERRL, conjunctivae normal, anicteric sclerae ENMT external ear and nose normal, oropharynx normal Neck trachea midline, no thyromegaly Respiratory normal respiratory effort, lungs clear to auscultation Cardiovascular RRR, no murmur, no edema Gastrointestinal (Abdomen) normal bowel sounds, soft, nontender, no hepatosplenomegaly Percussion/Palpation: + dullness to percussion (left sided) Musculoskeletal no cyanosis or clubbing, extremities motor strength 5/5 Skin no rashes, warm and dry Neurologic patellar DTR's 2+ bilat, sensation intact and PERRL, EOMI, accommodation nl, no face palsy, no dysarthria Psychiatric A+Ox3, euthymic affect Lymphatic no cervical or axillary lymphadenopathy Discharge Data Allergies Allergy/AdvReac Type Severity Reaction Status Date / Time amlodipine Allergy Unknown Swelling Verified 10/16/18 19:44 of Lip/Tongue/Throat gabapentin Allergy Unknown Verified 10/16/18 19:46 hydrochlorothiazide Allergy Unknown Verified 10/16/18 19:44 enalapril AdvReac Unknown Cough Verified 10/16/18 19:44 Sulfa (Sulfonamide AdvReac Unknown JUST Verified 10/16/18 19:34 Antibiotics) DIDN'T FEEL LIKE HIMSELF Consultations 10/16/18 18:35 ED Decision to Admit Stat 10/16/18 21:23 Consult Case Management - Discharge Planning Routine Consult Psychiatry Routine 10/26/18 11:02 Consult Psychiatry Routine Ordered Studies 10/16/18 17:00 CT head/brain wo con Stat 10/18/18 09:03 MR brain wo con Routine Hospital Course (1) Altered mental status: Dementia with delirium and depression likely cause of altered mental status The patient has had progressive decline in cognition since at least 05/2018. Family reports altered mental status has been associated with hallucinations and depression along with anxiety. This coincides with numerous psychosocial stressors including his son in law having a brain tumor, living alone in an apartment as opposed to living with his , etc. Patient has symptoms been controlled on twice daily Risperdal and Lexapro since 10/21 Klonopin stopped on admission Psychiatry consult has seen and agrees to medication choices mood is stable continue Risperdal BID and Lexapro on discharge (2) Bradycardia: sinus bradycardia, maybe associated with some of his weakness, this has improved (3) Aortic stenosis: severe, has refused AVR in the past, repeat echo mainly for prognostic purposes for patient and his family does not appear to be in diastolic heart failure patient consists continues to remain euvolemic patient has no evidence of volume overload although CXR checked 10/20 was without pulmonary edema or infection (4) Glaucoma: cont home drops when he allows to be given (5) Hypothyroidism: TSH has been high for some time. started synthroid 25mcg daily. continue on discharge check a TSH in 4 weeks (6) Depression: Cont lexapro. (7) CAD (coronary artery disease): non obstructive based on records. No current symptoms no obvious recent ischemic symptoms. 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 (9) Constipation: add Miralax BID for constipation, refused suppository patient eating well, ambulating the halls small on 10/30, continue to monitor (10) DVT prophylaxis: heparin BID Plan: d/c to [facility] today Total Time Total Time Spent Total Time Spent (In Minutes): 25 minutes Total Time Includes: Examination of the Patient, Discharge Planning and Medication Reconciliation Discharge Plan Discharge Items Patient Disposition: Transfer [facility] Reason For Visit: ALTERED MENTAL STATUS,BRADYCARDIA Discharge Diagnosis: Dementia with behavioral disturbances Hypothyroidism Constipation Condition: Good Discharge Goals: Improve disease control and Improve function Activity: Resume your previous activity Non-emergency contact: Primary Care Provider Call non-emergency contact if: you have any medication questions, your symptoms worsen and you have a fever Diet: Heart Healthy Addtl Provider Instructions: Medications: - SYNTHROID: started this admission for elevated TSH, continue 25mcg - LIDOCAINE: use patch as needed for pain - MIRALAX: use as needed for constipation - RISPERDAL: continue to use twice a day, helping to keep mood stable Dementia with behavioral disturbances much improved on Risperdal twice a day mood is stable, patient is cooperative, moves around independently Hypothyroidism: new diagnosis started on Synthroid 25mcg recommend repeating TSH in 4 weeks Constipation: patient eating well, ambulatory, needs occasional Miralax Severe aortic stenosis: long history of this, refused surgery in the past and still refuses FOLLOW UP - physician at [facility] within one week Prescriptions: New polyethylene glycol 3350 [Miralax] 17 gram Powder In Packet 17 g PO DAILY PRN (Reason: constipation) 30 Days Qty: 30 RF: 1 levothyroxine [Synthroid] 25 mcg Tablet 25 mcg PO DAILYBB 30 Days Qty: 30 RF: 3 lidocaine 5 % Adhesive Patch,Medicated 1 patch Transdermal QAM 30 Days Qty: 30 RF: 0 risperidone 0.5 mg Tablet,Disintegrating 0.5 mg PO BID 30 Days Qty: 60 RF: 2 Continue escitalopram oxalate 10 mg tablet 10 mg PO DAILY RF: 0 prednisolone acetate 1 % drops,suspension 1 drp OPB BID RF: 0 brimonidine-timolol 0.2-0.5 % drops 1 drp OPB BID RF: 0 aspirin 81 mg tablet,delayed release (DR/EC) 81 mg PO DAILY RF: 0 Discontinued clonazepam 0.5 mg tablet 0.5 mg PO HS RF: 0 Stand-Alone Forms: [facility] Discharge Orders: Discharge Order (Routine); Ordered 11/01/18 Ordered By: Aaron Crowell Skilled Items Patient informed of condition?: Yes DNR: No Discharge Level of Care: Skilled Communicable Disease: No Discharge Prognosis: Stable Admission Data Admit Date/Time: 10/16/18 20:06 Attending Provider: Aaron Crowell Admit Provider: Peter Carroll Primary Care Provider: Wander Morrow V. Other Providers: Peter Carroll ; Ching Alonso Service: Medical Other Interventions: Discharge Summary Assessment (RN) Last Done: 11/01/18 12:36
== END 2018-11-01 16:10 | DRG 884 ==
LOC: ED 16:33 → 2E 20:06 → SUATTDRO 20:06 → 2E 20:58 → 2S 10-17 22:49 → 2W 10-20 14:34 → 4W 10-23 20:08

== ENCOUNTER 2019-11-18 12:28 | Inpatient (IN) ==
[2019-11-18 13:49] LABS: Basophils # (auto) 0.01 K/uL (0-0.2); Basophils % (auto) 0.2 %; Eosinophils # (auto) 0.13 K/uL (0-0.5); Eosinophils % (auto) 2.4 %; Hematocrit (blood only) 38.2 % (42-52); Hemoglobin 12.6 g/dL (14.0-18.0); Immature Granulocytes # (auto) 0.01 K/uL (0.00-0.02); Immature Granulocytes % (auto) 0.2 %; Lymphocytes # (auto) 1.16 K/uL (1.2-3.4); Lymphocytes % (auto) 21.7 %; Mean Corpuscular Hemoglobin 32.1 pg (25-34); Mean Corpuscular Volume 97.2 fL (80-100); Mean Platelet Volume 9.5 fL (7.4-10.4); Monocytes # (auto) 0.53 K/uL (0.11-0.59); Monocytes % (auto) 9.9 %; Neutrophils % (auto) 65.6 %; Platelet Count 218 K/uL (130-400); RDW Coefficient of Variation 12.5 % (11.5-14.5); RDW Standard Deviation 44.3 fL (36.4-46.3); Red Blood Count 3.93 M/uL (4.7-6.1); White Blood Count 5.34 K/uL (4.8-10.8)
--- NOTE | 2019-11-18 13:54 | XRay Report ---
XR chest 1V portable CLINICAL HISTORY: weakness dyspnea COMPARISON STUDY: 10/20/2018 FINDINGS: Moderate stable cardiomegaly. Chronic bilateral interstitial change. No well-defined focal infiltrate. IMPRESSION: 1. Chronic bilateral interstitial change. 2. Stable moderate cardiomegaly. ACT 112: Negative or not required by law. The above report was generated using voice recognition software. It may contain grammatical, syntax or spelling errors. Electronically signed by: Gilbert Reich M.D. 11/18/2019 1:52 PM
[2019-11-18 14:05] LABS: Albumin Level 3.6 gm/dl (3.4-5.0); BUN Creatinine Ratio 15.7 (10-20); Calcium 9.6 mg/dl (8.5-10.1); Creatinine Clr Calc Pharmacy 40.4 ml/min; Est GFR (African American) 77.5; Est GFR (Non-African American) 66.9; Potassium 4.1 mmol/L (3.5-5.1)
[2019-11-18 14:15] LABS: Albumin Globulin Ratio 1.1 (0.9-2); Bilirubin,Total 1.8 mg/dl (0.2-1); Globulin 3.3 gm/dl (2.5-4.0); Thyroid Stimulating Hormone 3.93 uIu/ml (0.300-4.500); Total Protein 6.9 gm/dl (6.4-8.2)
--- NOTE | 2019-11-18 15:31 | History & Physical Report ---
Date of Service November 18, 2019 Assessment & Plan (1) Confusion: 89-year-old Moroccan male presenting with progressive decline in mental status. Most likely secondary to delirium and dementia. Patient has been seen by psychiatry in the past, most recently on 11/09/2019. Concern for progressive dementia. Patient had recent CT and MRI brain which were both unremarkable. Will start Aricept 5 mg p.o. daily Delirium prevention strategies with frequent orientation Consider neurology consultation -PT/OT/case management consultation appreciated regarding disposition/discharge plan We will continue Risperdal for now. Hopefully, will be able to discontinue this medication in the future. Present on Admission?: Yes (2) Dementia: Plan as above. Present on Admission?: Yes (3) Hypothyroidism: TSH within normal range at 3.93 Continue Synthroid Present on Admission?: Yes (4) Depression: Chronic. Continue escitalopram 10 mg p.o. daily Present on Admission?: Yes (5) CAD (coronary artery disease): Chronic. Nonobstructive based on records. Patient denies chest pain. No EKG evidence of acute ischemia. He does have a bifascicular block noted on EKG. Presently in sinus rhythm Patient is not on cardiac medications. We will start aspirin 81 mg p.o. daily Present on Admission?: Yes (6) Aortic stenosis: Patient with severe aortic stenosis, 5 out of 6 murmur. Daughter denies complaints of angina/syncope/dyspnea. No evidence of pulmonary edema or failure on imaging or exam. Patient has refused AVR in the past Maintain euvolemia, avoid tachycardia/hypotension Present on Admission?: Yes (7) Gilbert syndrome: Chronic. Elevated T bili at 1.8 today Noted FENHep-Lock, monitor electrolytes and replete as needed, regular diet as tolerated, soft/bite sized Prophylaxis - Lovenox CodeDNR/DNI per discussion with patient Dispositionadmit to medical floor Present on Admission?: Yes History of Present Illness Chief Complaint: AMS Primary Care Provider: Wander Morrow MD Mr. Parker is an 89yo Moroccan male with history of CAD, Dementia, Hypothyroidism presenting with his daughter with increased AMS. Majority of history obtained from daughter. She reports that his mental status has been declining since August 2018, she believes it started after a prolonged hospitalization. Since then, he has had a progressive cognitive decline. She reports episodes of disorientation, occasional agitation. At times he is unfamiliar with who she is and thinks she is his recently or mother. She states that he is constantly trying to take a cab or a train to [place]. She reports that at times he will call her 10-20 times a day. Last Tuesday the patient was picked up by police outside of his home wandering the streets, trying to get a ride to the train station so he can take a train to [place]. Patient ambulates independently but daughter reports that he walks slowly and sometimes is unsteady on his feet. She denies fever/chills. Patient has no complaints of chest pain/shortness of breath/palpitation/abdominal pain/nausea/vomiting/diarrhea/constipation. She reports that he eats well at home. She is concerned that he does not do anything with his time at home (does not watch TV, play games or read). She presents today because she is concerned that her father is not safe in his home. She was requesting evaluation for brief rehab stay. Of note, they are part of the waiver program and plan to keep the patient in his home for as long as possible. They have home health aides that come twice daily for several hours. Daughter has recently placed request to increase the number of hours the aides come (requested 30 hours/week). Allergies Allergy/AdvReac Type Severity Reaction Status Date / Time amlodipine Allergy Unknown Swelling Verified 11/18/19 14:27 of Lip/Tongue/Throat gabapentin Allergy Unknown Verified 11/18/19 14:27 hydrochlorothiazide Allergy Unknown Verified 11/18/19 14:27 enalapril AdvReac Unknown Cough Verified 11/18/19 14:27 Sulfa (Sulfonamide AdvReac Unknown JUST Verified 11/18/19 14:27 Antibiotics) DIDN'T FEEL LIKE HIMSELF Home Medications Home Medications Medication Instructions Recorded Confirmed Type brimonidine-timolol 1 drp OPB BID 10/16/18 11/18/19 History prednisolone acetate 1 drp OPB BID 10/16/18 11/18/19 History fluocinonide 0.05 % topical 1 appln TOPICAL BID #1 ml 06/27/19 11/18/19 History solution nitroglycerin 0.4 mg sublingual 0.4 mg SL Q5M PRN #15 tab 06/27/19 11/18/19 History tablet polyethylene glycol 3350 17 17 gm PO DAILY gm 06/27/19 11/18/19 History gram/dose oral powder levothyroxine 25 mcg tablet 25 mcg PO DAILY #90 tab 08/21/19 11/18/19 Rx escitalopram oxalate 20 mg PO DAILY 11/18/19 11/18/19 History melatonin 5 mg PO HS PRN 11/18/19 11/18/19 History risperidone 0.5 mg PO QAM 11/18/19 11/18/19 History risperidone 1 mg PO QPM 11/18/19 11/18/19 History Past Med/Surg History Medical History Acute myocardial infarction (Resolved) Aortic stenosis BPH (benign prostatic hyperplasia) CAD (coronary artery disease) Chest wall contusion (Resolved) Dementia (Chronic) Depression (Chronic) DVT prophylaxis (Resolved) Elevated troponin I level (Resolved) Gait disturbance (Chronic) Gilbert syndrome Glaucoma Glaucoma History of hepatitis Hypothyroidism Surgical History H/O bilateral cataract extraction History of appendectomy S/P inguinal hernia repair Family History Father , vascular disease?; in his 60s No problems noted. 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 [place] Feels Safe at Home: Yes Safety Concerns: Feels Safe At This Time Smoking Status: Never smoker Hx Alcohol Use: No (but drank heavily in the past; quit in his 40s) Hx Substance Use: No Review of Systems Review of Systems: Unobtainable due to cognitive status Physical Exam Physical Exam: General: patient resting comfortably, NAD, non-toxic in appearance, AA&O to person and hospital, patient answers questions in both Zambian and Moroccan Skin: warm, dry, intact, no rashes or lesions HEENT: NC/AT, PERRL, EOMI, anicteric sclera, conjunctiva without injection, external ear normal to inspection and nontender, nares patent, moist mucus membranes, dentition intact, no oropharyngeal lesions, neck supple, trachea midline, no LAD, no thyromegaly, no JVD Heart: +S1/S2, regular, 5/6 crescendo/decrescendo systolic ejection murmur heard across the precordium with radiation to bilateral carotids Lungs: equal air entry bilaterally, no rales/rhonchi/wheezes Abd: +BS, soft, NT/ND, no masses/organomegaly/ascites Ext: warm, 2+ pulses in UE/LE bilaterally, no clubbing/cyanosis or edema Neuro: nonfocal, patient AA&O x 2, speech intact, no facial droop, moving all extremities on command with equal strength 5/5 Results & Data Vital Signs (Past 12 Hours) Vital Signs Temp Pulse Pulse Resp BP BP Pulse Ox 11/18/19 15:00 60 18 178/80 H 94 11/18/19 14:20 58 L 8 L 11/18/19 14:15 54 L 17 11/18/19 14:13 58 L 56 L 15 165/90 H 165/90 H 97 11/18/19 12:40 37.1 C 66 16 149/82 H 93 Laboratory Results Lab Results 11/18/19 11/18/19 11/18/19 Range/Units 13:40 13:40 13:40 WBC 5.34 (4.8-10.8) K/uL RBC 3.93 L (4.7-6.1) M/uL Hgb 12.6 L (14.0-18.0) g/dL Hct 38.2 L (42-52) % MCV 97.2 (80-100) fL MCH 32.1 (25-34) pg MCHC 33.0 (32-36) g/dL RDW Std Deviation 44.3 (36.4-46.3) fL RDW Coeff of Jeremiah 12.5 (11.5-14.5) % Plt Count 218 (130-400) K/uL MPV 9.5 (7.4-10.4) fL Immature Gran % (Auto) 0.2 % Neut % (Auto) 65.6 % Lymph % (Auto) 21.7 % [place] % (Auto) 9.9 % Eos % (Auto) 2.4 % Baso % (Auto) 0.2 % Immature Gran # (Auto) 0.01 (0.00-0.02) K/uL Neut # (Auto) 3.50 (1.4-6.5) K/uL Lymph # (Auto) 1.16 L (1.2-3.4) K/uL [place] # (Auto) 0.53 (0.11-0.59) K/uL Eos # (Auto) 0.13 (0-0.5) K/uL Baso # (Auto) 0.01 (0-0.2) K/uL Sodium 140 (136-145) mmol/L Potassium 4.1 (3.5-5.1) mmol/L Chloride 106 (98-107) mmol/L Carbon Dioxide 26 (21-32) mmol/L Anion Gap 7.0 (3-11) BUN 16 (7-18) mg/dl Creatinine 1.00 (0.6-1.4) mg/dl Est Cr Clr Drug Dosing 40.4 ml/min Est GFR ( Amer) 77.5 Est GFR (Non-Af Amer) 66.9 BUN/Creatinine Ratio 15.7 (10-20) Glucose 99 (70-99) mg/dl Calcium 9.6 (8.5-10.1) mg/dl Phosphorus 2.9 (2.5-4.9) mg/dl Magnesium 2.2 (1.8-2.4) mg/dl Total Bilirubin 1.8 H (0.2-1) mg/dl AST 22 (15-37) U/L ALT 19 (12-78) U/L Alkaline Phosphatase 73 (45-117) U/L Total Protein 6.9 (6.4-8.2) gm/dl Albumin 3.6 (3.4-5.0) gm/dl Globulin 3.3 (2.5-4.0) gm/dl Albumin/Globulin Ratio 1.1 (0.9-2) TSH 3.930 (0.300-4.500) uIu/ml Diagnostic Findings XR chest 1V portable CLINICAL HISTORY: weakness dyspnea COMPARISON STUDY: 10/20/2018 FINDINGS: Moderate stable cardiomegaly. Chronic bilateral interstitial change. No well-defined focal infiltrate. IMPRESSION: 1. Chronic bilateral interstitial change. 2. Stable moderate cardiomegaly. ACT 112: Negative or not required by law. The above report was generated using voice recognition software. It may contain grammatical, syntax or spelling errors. Electronically signed by: Gilbert Reich M.D. 11/18/2019 1:52 PM Dictated: 11/18/19 1351 Transcribed: 11/18/19 1351 ECG Additional Comments: Study shows sinus rhythm at 62 bpm with first-degree AV block, MS = 306, QRS = 156, QTc = 477, right bundle branch block, left anterior fascicular block, no acute ischemic changes Code Status & VTE Plan Code Status DNR/DNI VTE Prophylaxis Plan VTE Prophylaxis will be ordered: Yes PG Care Time/CCT Total # of Minutes Spent Total Time Spent with Patient: Total time spent is greater than 50% in coordination of care (as documented) at patient's floor/unit and/or counseling patient: Coding Level of Care Code 91162 Initial Inpt Care Lvl 3 Diagnoses Confusion R41.0 Dementia F03.91 Dementia behavioral disturbance: with behavioral disturbance Dementia type: unspecified type Hypothyroidism E03.9 Hypothyroidism type: unspecified Depression F32.89 Depression Type: other depression CAD (coronary artery disease) I25.10 Coronary Disease-Associated Artery/Lesion type: unspecified vessel or lesion type [place] vs. transplanted heart: jena heart Associated angina: without angina Aortic stenosis I35.0 Cardiac valve disease etiology: etiology unspecified Gilbert syndrome E80.4 (1) Dementia Dementia behavioral disturbance: with behavioral disturbance Dementia type: unspecified type Qualified Code(s): F03.91 - Unspecified dementia with behavioral disturbance (2) Hypothyroidism Hypothyroidism type: unspecified Qualified Code(s): E03.9 - Hypothyroidism, unspecified (3) Depression Depression Type: other depression Qualified Code(s): F32.89 - Other specified depressive episodes (4) CAD (coronary artery disease) Coronary Disease-Associated Artery/Lesion type: unspecified vessel or lesion type [place] vs. transplanted heart: jena heart Associated angina: without angina Qualified Code(s): I25.10 - Atherosclerotic heart disease of j[place] coronary artery without angina pectoris (5) Aortic stenosis Cardiac valve disease etiology: etiology unspecified Qualified Code(s): I35.0 - Nonrheumatic aortic (valve) stenosis
[2019-11-18] MEDS ORDERED: ACETAMINOPHEN 325 MG TAB PO PRN (15:57)
[2019-11-18] MEDS ORDERED: DOCUSATE SODIUM 100 MG CAP PO PRN (15:57)
[2019-11-18 16:47] LABS: Magnesium 2.2 mg/dl (1.8-2.4); Phosphorus 2.9 mg/dl (2.5-4.9)
[2019-11-18] MEDS: ENOXAPARIN INJ 30 MG/0.3 ML SYR SQ SCH (17:33)
--- NOTE | 2019-11-18 20:12 | Emergency Department Note ---
Entered by Erendira Galan acting as a scribe for History of Present Illness General Chief complaint: Illness Stated complaint: CONFUSED DIZZY Time Seen by Provider: 11/18/19 12:49 Source: patient and family (Daughter ) Limitations: no limitations History of Present Illness Provider complaint: Confusion Onset (ago): day(s) Location: head (confusion ) Pain Consistency: + other (worsening ) Maximum Pain Intensity: 0 Quality: + constant Associated symptoms: + confusion and + other (Negative: falls) The patient is an 89 year old male with past medical history of dementia, HTN, hyperlipidemia, 3-vessel CAD, CAD, hypothyroidism, glaucoma, who presents to the ED with complaints of worsening confusion that started a few days ago. The patient states that he feels something is wrong but does not have an expressed pain. He notes he has been sleeping and eating well. The daughter reports the patient was diagnosed with dementia last year and was hospitalized for 17 days. She additionally states everything was fine after and arranged for the patient to live at his place. The daughter notes that sometimes the patient wont recognize his own place or things. She reports his 3 years ago which has made things worse. The daughter states the patient will call her and tell her he wants to go somewhere else. She reports they went to a specialist to increase his dementia medication dose. She additionally notes that the patient left his apartment last week where they had to call the police. The daughter states the patient called her this morning and told her could not stand it anymore and felt exhausted overall. She additionally reports that the patient sometimes will forget to put the phone back after calling her or will leave the water running. The patient denies falls. Home Medications Home Medications Medication Instructions Recorded Confirmed Type brimonidine-timolol 1 drp OPB BID 10/16/18 11/18/19 History prednisolone acetate 1 drp OPB BID 10/16/18 11/18/19 History fluocinonide 0.05 % topical 1 appln TOPICAL BID #1 ml 06/27/19 11/18/19 History solution nitroglycerin 0.4 mg sublingual 0.4 mg SL Q5M PRN #15 tab 06/27/19 11/18/19 History tablet polyethylene glycol 3350 17 17 gm PO DAILY gm 06/27/19 11/18/19 History gram/dose oral powder levothyroxine 25 mcg tablet 25 mcg PO DAILY #90 tab 08/21/19 11/18/19 Rx escitalopram oxalate 20 mg PO DAILY 11/18/19 11/18/19 History melatonin 5 mg PO HS PRN 11/18/19 11/18/19 History risperidone 0.5 mg PO QAM 11/18/19 11/18/19 History risperidone 1 mg PO QPM 11/18/19 11/18/19 History Allergies Allergy/AdvReac Type Severity Reaction Status Date / Time amlodipine Allergy Unknown Swelling Verified 11/18/19 14:27 of Lip/Tongue/Throat gabapentin Allergy Unknown Verified 11/18/19 14:27 hydrochlorothiazide Allergy Unknown Verified 11/18/19 14:27 enalapril AdvReac Unknown Cough Verified 11/18/19 14:27 Sulfa (Sulfonamide AdvReac Unknown JUST Verified 11/18/19 14:27 Antibiotics) DIDN'T FEEL LIKE HIMSELF Past Med/Surg History Medical History Acute myocardial infarction (Resolved) Aortic stenosis BPH (benign prostatic hyperplasia) CAD (coronary artery disease) Chest wall contusion (Resolved) Dementia (Chronic) Depression (Chronic) DVT prophylaxis (Resolved) Elevated troponin I level (Resolved) Gait disturbance (Chronic) Gilbert syndrome Glaucoma Glaucoma History of hepatitis Hypothyroidism Surgical History H/O bilateral cataract extraction History of appendectomy S/P inguinal hernia repair Family History Father , vascular disease?; in his 60s No problems noted. 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 and A total of 6 systems reviewed and were otherwise negative Physical Exam Vital Signs Vital Signs - 24 hr 11/18/19 12:40 11/18/19 14:13 11/18/19 14:15 Temperature 37.1 C Temperature Source Oral Pulse Rate 66 58 L 54 L Pulse Rate [Apical] 56 L Respiratory Rate 16 15 17 Blood Pressure 149/82 H 165/90 H Blood Pressure [Left Arm] 165/90 H Blood Pressure Mean 104 122 Blood Pressure Mean [Left Arm] 115 Pulse Oximetry 93 97 Oxygen Delivery Method Room Air Room Air Sepsis Recent Fever Within 48 Hours No Sepsis New/Unexplained Change in Mental Status No Sepsis Action Taken by Nursing No Action Required 11/18/19 14:20 11/18/19 15:00 Temperature Temperature Source Pulse Rate 58 L Pulse Rate [Apical] 60 Respiratory Rate 8 L 18 Blood Pressure Blood Pressure [Left Arm] 178/80 H Blood Pressure Mean Blood Pressure Mean [Left Arm] 112 Pulse Oximetry 94 Oxygen Delivery Method Room Air Sepsis Recent Fever Within 48 Hours Sepsis New/Unexplained Change in Mental Status Sepsis Action Taken by Nursing GENERAL: Awake, alert, well-appearing, in no distress HENT: Normocephalic, atraumatic. EYES: Normal conjunctiva. Sclera non-icteric. RESPIRATORY: Clear to auscultation. No wheezes. Normal respiratory effort. CARDIAC: Normal rate. Normal rhythm. Extremities warm and well perfused. MUSCULOSKELETAL: Atraumatic. Chest examination reveals no tenderness. LOWER EXTREMITIES: Calves are equal size bilaterally and non-tender. Trace pedal edema bilaterally. NEURO: No sensory or motor deficits noted. No facial droop. No slurred speech. The patient believes it is 2014. SKIN: Warm and dry. No jaundice noted. Course Course 1255: The patient was evaluated in room C2B. A complete history and physical exam was performed. 1431: I discussed the patients case with Dr. Dubois, [facility] Hospitalist. The patient will be evaluated for further management Administered Medications Enoxaparin Sodium (Lovenox) 30 mg SQ Q24H NAT Stop: 12/18/19 16:59 Last Admin: 11/18/19 17:33 Dose: 30 mg Documented by: [id number] Medical Decision Making Differential Diagnosis Differential diagnosis: Etiologies such as metabolic, infection, hypoglycemia, electrolyte abnormalities, cardiac sources, intracerebral event, toxicologic, neurologic, as well as others were entertained. Medical Records Attestation: I reviewed the patient's medical records. Home Medications Current Medication List: was personally reviewed by me Laboratory Data Attestation: I reviewed the patient's lab results. Result diagrams: 11/18/19 13:40 11/18/19 13:40 Lab Results 11/18/19 11/18/19 11/18/19 Range/Units 13:40 13:40 13:40 WBC 5.34 (4.8-10.8) K/uL RBC 3.93 L (4.7-6.1) M/uL Hgb 12.6 L (14.0-18.0) g/dL Hct 38.2 L (42-52) % MCV 97.2 (80-100) fL MCH 32.1 (25-34) pg MCHC 33.0 (32-36) g/dL RDW Std Deviation 44.3 (36.4-46.3) fL RDW Coeff of Jeremiah 12.5 (11.5-14.5) % Plt Count 218 (130-400) K/uL MPV 9.5 (7.4-10.4) fL Immature Gran % (Auto) 0.2 % Neut % (Auto) 65.6 % Lymph % (Auto) 21.7 % [place] % (Auto) 9.9 % Eos % (Auto) 2.4 % Baso % (Auto) 0.2 % Immature Gran # (Auto) 0.01 (0.00-0.02) K/uL Neut # (Auto) 3.50 (1.4-6.5) K/uL Lymph # (Auto) 1.16 L (1.2-3.4) K/uL [place] # (Auto) 0.53 (0.11-0.59) K/uL Eos # (Auto) 0.13 (0-0.5) K/uL Baso # (Auto) 0.01 (0-0.2) K/uL Sodium 140 (136-145) mmol/L Potassium 4.1 (3.5-5.1) mmol/L Chloride 106 (98-107) mmol/L Carbon Dioxide 26 (21-32) mmol/L Anion Gap 7.0 (3-11) BUN 16 (7-18) mg/dl Creatinine 1.00 (0.6-1.4) mg/dl Est Cr Clr Drug Dosing 40.4 ml/min Est GFR ( Amer) 77.5 Est GFR (Non-Af Amer) 66.9 BUN/Creatinine Ratio 15.7 (10-20) Glucose 99 (70-99) mg/dl Calcium 9.6 (8.5-10.1) mg/dl Phosphorus 2.9 (2.5-4.9) mg/dl Magnesium 2.2 (1.8-2.4) mg/dl Total Bilirubin 1.8 H (0.2-1) mg/dl AST 22 (15-37) U/L ALT 19 (12-78) U/L Alkaline Phosphatase 73 (45-117) U/L Total Protein 6.9 (6.4-8.2) gm/dl Albumin 3.6 (3.4-5.0) gm/dl Globulin 3.3 (2.5-4.0) gm/dl Albumin/Globulin Ratio 1.1 (0.9-2) TSH 3.930 (0.300-4.500) uIu/ml Imaging Data Radiologist's Impression: Radiology results as stated below per my review and the radiologist's interpretation: XR chest 1V portable CLINICAL HISTORY: weakness dyspnea COMPARISON STUDY: 10/20/2018 FINDINGS: Moderate stable cardiomegaly. Chronic bilateral interstitial change. No well-defined focal infiltrate. IMPRESSION: 1. Chronic bilateral interstitial change. 2. Stable moderate cardiomegaly. ACT 112: Negative or not required by law. The above report was generated using voice recognition software. It may contain grammatical, syntax or spelling errors. Electronically signed by: Gilbert Reich M.D. 11/18/2019 1:52 PM ECG Data Attestation: I personally reviewed and interpreted this ECG as follows: Indication: + altered mental status Rate (beats per minute): 62 Rhythm: + sinus rhythm ECG Intervals/blocks: + First degree AV block and + Right Bundle branch block ECG ST segments: no ST elevation Comparison ECG Date: from (03/23/17) Change: no significant change Blood Pressure Blood Pressure Findings: Elevated blood pressure Blood Pressure Disposition: further management by hospitalist SHRUTI Narrative Patient is an 89-year-old gentleman presenting here today with his daughter report of more confusion recently. Patient lives alone but does have some home health aides. Evidently is been calling his daughter multiple times and was wandering found by police last week. Patient denies any pain. Is not violent or aggressive. Daughter states was similar last year and was briefly in the hospital and placed within improved. No recent medication changes. No fever. No significant findings on exam but pleasant. States that she just feels things are not quite right. Not as bad as last year. Has been working with outpatient resources including [facility] with no increased risk but all without significant improvement. Daughter does not feel that he is safe at home. Basic labs without significant findings. No significant trauma history and described symptoms do not seem consistent with acute intracranial abnormality or bleed. Likely worsening of his dementia. Discussed with case management and given insurance and safety issues home feel that further evaluation in the hospital would be warranted. Hospitalist contacted. Impression & Plan Confusion, Dementia Discharge Plan Visit Data *Final* Discharge Date/Time: 11/18/19 15:45 Chief Complaint: Illness Stated Complaint: CONFUSED DIZZY Other Complaint: Vertigo ED Provider: Elijah Green Discharge Problem: Confusion, Dementia Patient Disposition: Admitted As Inpatient Discharge Instructions Interventions: ED Discharge Assessment Last Done: 11/18/19 15:45 Discharge Problem: Dementia Qualifiers: Dementia type: unspecified type Dementia behavioral disturbance: with behavioral disturbance Qualified Code(s): F03.91 - Unspecified dementia with behavioral disturbance The scribe's documentation has been prepared under my direction and personally reviewed by me in its entirety. I confirm that the note above accurately reflects all work, treatment, procedures, and medical decision making performed by me.
[2019-11-18] MEDS: risperiDONE 1 MG TABLET PO SCH (20:36)
[2019-11-18] MEDS: prednisoLONE acetate 1% OP SUSP 5 ML BTL OP SCH (20:36)
[2019-11-19 06:33] LABS: Appearance Urine Clear (Clear); Bilirubin Urine Negative (Negative); Blood Urine Negative (Negative); Color Urine Yellow; Glucose Urine UA Negative (Negative); Ketones Urine Negative (Negative); Leukocyte Esterase Urine Negative (Negative); Nitrite Urine Negative (Negative); Protein Urine Negative (Negative); Specific Gravity Urine 1.012 (1.000-1.030); Urobilinogen Urine Negative (Negative)
[2019-11-19 06:50] LABS: Basophils # (auto) 0.03 K/uL (0-0.2); Basophils % (auto) 0.6 %; Eosinophils # (auto) 0.18 K/uL (0-0.5); Eosinophils % (auto) 3.6 %; Hematocrit (blood only) 40.1 % (42-52); Hemoglobin 13.2 g/dL (14.0-18.0); Immature Granulocytes # (auto) 0.01 K/uL (0.00-0.02); Immature Granulocytes % (auto) 0.2 %; Lymphocytes # (auto) 1.52 K/uL (1.2-3.4); Lymphocytes % (auto) 30.5 %; Mean Corpuscular Hgb Conc 32.9 g/dL (32-36); Mean Corpuscular Volume 97.3 fL (80-100); Mean Platelet Volume 9.7 fL (7.4-10.4); Monocytes # (auto) 0.51 K/uL (0.11-0.59); Monocytes % (auto) 10.2 %; Neutrophils # (auto) 2.74 K/uL (1.4-6.5); Neutrophils % (auto) 54.9 %; Platelet Count 212 K/uL (130-400); RDW Coefficient of Variation 12.4 % (11.5-14.5); RDW Standard Deviation 43.9 fL (36.4-46.3); Red Blood Count 4.12 M/uL (4.7-6.1); White Blood Count 4.99 K/uL (4.8-10.8)
[2019-11-19 07:25] LABS: BUN Creatinine Ratio 14.9 (10-20); Calcium 9.8 mg/dl (8.5-10.1); Creatinine Clr Calc Pharmacy 41.3 ml/min; Est GFR (African American) 79.5; Est GFR (Non-African American) 68.6; Potassium 3.9 mmol/L (3.5-5.1)
[2019-11-19] MEDS: risperiDONE 0.5 MG TABLET PO SCH (07:53)
[2019-11-19] MEDS: ESCITALOPRAM OXALATE 20 MG TAB PO SCH (07:53)
[2019-11-19] MEDS: LEVOTHYROXINE SODIUM 25 MCG TABLET PO SCH (07:53)
[2019-11-19] MEDS: ASPIRIN 81 MG ECTAB PO SCH (07:54)
[2019-11-19] MEDS: prednisoLONE acetate 1% OP SUSP 5 ML BTL OP SCH ×2 (07:54→21:18)
[2019-11-19] MEDS: DONEPEZIL HCL 5 MG TAB PO SCH (07:54)
[2019-11-19] MEDS: POLYETHYLENE (MIRALAX) 17 GM PACK PO SCH (08:52)
--- NOTE | 2019-11-19 10:25 | Hospitalist Progress Note ---
Date of Service November 19, 2019 Assessment & Plan (1) Confusion: in the setting of known dementia. no obvious metabolic or infectious etiology for the acute encephalopathy although b12 level is low-normal and previous b1 level was undetectable. will supplement both. supportive care. cont risperdal. avoid benzos/sedatives. (2) Dementia: agree with aricept 5mg initiated by admitting physician. cont lexapro and risperdal as previous. see "Confusion" above. I believe patient would be best served in a memory care facility (personal longterm that caters to individuals with dementia). I discussed this with pt's daughter extensively by phone. dementia present 2-3 years - Alzheimer's? (3) Hypothyroidism: TSH within normal range at 3.93 Continue Synthroid (4) Depression: Affect full. Continue escitalopram 10 mg p.o. daily. (5) CAD (coronary artery disease): Chronic. Nonobstructive based on records. Should be on daily aspirin 81mg. Started by admitting MD - agree w/ such. (6) Aortic stenosis: Severe aortic stenosis. Patient has refused AVR in the past. No obvious symptoms from at this time. (7) Gilbert syndrome: Chronic. Elevated T bili at 1.8 No Rx at this time (8) Thiamine deficiency: undetectable level in 2019 start thiamine 200mg BID x 30 days (9) Vitamin B12 deficiency: supplement 1000mcg daily could contribute to confusion/dementia/memory issues (10) DVT prophylaxis: lovenox 30mg daily daughter extensively updated by phone on 11/19/19 total time today including call to daughter -- 35 minutes Admission and Anticipated Discharge Date Admission Date: November 18, 2019 Subjective patient sitting in chair by bedside. his Faroese is quite good and he denies pain in any location. staff found patient wandering around in hallway this am and had to be helped back to the room. had lengthy conversation with daughter, Lisseth, by phone ([phone]). daughter states the "Waiver" program will approved 18/04 caregivers if we write a letter stating patient will need such. she does not want to place him in memory unit at [facility] or SNF due to lack of finances to do so. Review of Systems Respiratory: no cough and no dyspnea Cardiovascular: no chest pain Gastrointestinal: no abdominal pain Physical Exam Constitutional: well developed, well nourished and + altered mental status (thought it was 20 "something"); no acute distress ENMT: external ear and nose normal, oropharynx normal Respiratory: normal respiratory effort, lungs clear to auscultation Cardiovascular: Rate/Rhythm: regular rate and regular rhythm Heart Sounds: normal S1, normal S2 and + murmur (3/6 RUSB - holosystolic) Vessels: posterior tibial pulses present and dorsalis pedis pulses present; no JVD Extremities: no edema Gastrointestinal (Abdomen): normal bowel sounds, soft, nontender, no hepatosplenomegaly Psychiatric: Orientation: alert, oriented to person, oriented to place and cooperative; + not oriented to time Affect: euthymic affect Results & Data ([facility]) Vital Signs (Past 12 Hours) Vital Signs Temp Pulse Resp BP Pulse Ox 11/19/19 07:23 36.5 C 49 L 20 131/79 95 11/18/19 23:43 36.6 C 58 L 18 151/82 H 93 Laboratory Results Laboratory Results - last 24 hr 11/18/19 11/18/19 11/18/19 13:40 13:40 13:40 WBC 5.34 RBC 3.93 L Hgb 12.6 L Hct 38.2 L MCV 97.2 MCH 32.1 MCHC 33.0 RDW Std Deviation 44.3 RDW Coeff of Jeremiah 12.5 Plt Count 218 MPV 9.5 Immature Gran % (Auto) 0.2 Neut % (Auto) 65.6 Lymph % (Auto) 21.7 Floyd % (Auto) 9.9 Eos % (Auto) 2.4 Baso % (Auto) 0.2 Immature Gran # (Auto) 0.01 Neut # (Auto) 3.50 Lymph # (Auto) 1.16 L Floyd # (Auto) 0.53 Eos # (Auto) 0.13 Baso # (Auto) 0.01 Sodium 140 Potassium 4.1 Chloride 106 Carbon Dioxide 26 Anion Gap 7.0 BUN 16 Creatinine 1.00 Est Cr Clr Drug Dosing 40.4 Est GFR ( Amer) 77.5 Est GFR (Non-Af Amer) 66.9 BUN/Creatinine Ratio 15.7 Glucose 99 Calcium 9.6 Phosphorus 2.9 Magnesium 2.2 Total Bilirubin 1.8 H AST 22 ALT 19 Alkaline Phosphatase 73 Total Protein 6.9 Albumin 3.6 Globulin 3.3 Albumin/Globulin Ratio 1.1 Vitamin B12 TSH 3.930 Urine Color Urine Appearance Urine pH Ur Specific [place] Urine Protein Urine Glucose (UA) Urine Ketones Urine Blood Urine Nitrite Urine Bilirubin Urine Urobilinogen Ur Leukocyte Esterase 11/19/19 11/19/19 11/19/19 04:45 06:27 06:27 WBC 4.99 RBC 4.12 L Hgb 13.2 L Hct 40.1 L MCV 97.3 MCH 32.0 MCHC 32.9 RDW Std Deviation 43.9 RDW Coeff of Jeremiah 12.4 Plt Count 212 MPV 9.7 Immature Gran % (Auto) 0.2 Neut % (Auto) 54.9 Lymph % (Auto) 30.5 Floyd % (Auto) 10.2 Eos % (Auto) 3.6 Baso % (Auto) 0.6 Immature Gran # (Auto) 0.01 Neut # (Auto) 2.74 Lymph # (Auto) 1.52 Floyd # (Auto) 0.51 Eos # (Auto) 0.18 Baso # (Auto) 0.03 Sodium 139 Potassium 3.9 Chloride 107 Carbon Dioxide 27 Anion Gap 6.0 BUN 15 Creatinine 0.98 Est Cr Clr Drug Dosing 41.3 Est GFR ( Amer) 79.5 Est GFR (Non-Af Amer) 68.6 BUN/Creatinine Ratio 14.9 Glucose 84 Calcium 9.8 Phosphorus Magnesium Total Bilirubin AST ALT Alkaline Phosphatase Total Protein Albumin Globulin Albumin/Globulin Ratio Vitamin B12 TSH Urine Color Yellow Urine Appearance Clear Urine pH 7.0 Ur Specific [place] 1.012 Urine Protein Negative Urine Glucose (UA) Negative Urine Ketones Negative Urine Blood Negative Urine Nitrite Negative Urine Bilirubin Negative Urine Urobilinogen Negative Ur Leukocyte Esterase Negative 11/19/19 06:27 WBC RBC Hgb Hct MCV MCH MCHC RDW Std Deviation RDW Coeff of Jeremiah Plt Count MPV Immature Gran % (Auto) Neut % (Auto) Lymph % (Auto) Floyd % (Auto) Eos % (Auto) Baso % (Auto) Immature Gran # (Auto) Neut # (Auto) Lymph # (Auto) Floyd # (Auto) Eos # (Auto) Baso # (Auto) Sodium Potassium Chloride Carbon Dioxide Anion Gap BUN Creatinine Est Cr Clr Drug Dosing Est GFR ( Amer) Est GFR (Non-Af Amer) BUN/Creatinine Ratio Glucose Calcium Phosphorus Magnesium Total Bilirubin AST ALT Alkaline Phosphatase Total Protein Albumin Globulin Albumin/Globulin Ratio Vitamin B12 295 TSH Urine Color Urine Appearance Urine pH Ur Specific [place] Urine Protein Urine Glucose (UA) Urine Ketones Urine Blood Urine Nitrite Urine Bilirubin Urine Urobilinogen Ur Leukocyte Esterase PG Care Time/CCT Total # of Minutes Spent Total Time Spent with Patient: Total time spent is greater than 50% in coordination of care (as documented) at patient's floor/unit and/or counseling patient: Coding Level of Care Code 52298 Subseq Hosp Care Lvl 3 Diagnoses Confusion R41.0 Dementia F03.91 Dementia behavioral disturbance: with behavioral disturbance Dementia type: unspecified type Hypothyroidism E03.9 Hypothyroidism type: unspecified Depression F32.89 Depression Type: other depression CAD (coronary artery disease) I25.10 Coronary Disease-Associated Artery/Lesion type: unspecified vessel or lesion type [place] vs. transplanted heart: [place] heart Associated angina: without angina Aortic stenosis I35.0 Cardiac valve disease etiology: etiology unspecified Gilbert syndrome E80.4 Thiamine deficiency E51.9 Vitamin B12 deficiency E53.8 DVT prophylaxis Z29.9 (1) Dementia Dementia behavioral disturbance: with behavioral disturbance Dementia type: unspecified type Qualified Code(s): F03.91 - Unspecified dementia with behavioral disturbance (2) Hypothyroidism Hypothyroidism type: unspecified Qualified Code(s): E03.9 - Hypothyroidism, unspecified (3) Depression Depression Type: other depression Qualified Code(s): F32.89 - Other specified depressive episodes (4) CAD (coronary artery disease) Coronary Disease-Associated Artery/Lesion type: unspecified vessel or lesion type [place] vs. transplanted heart: [place] heart Associated angina: without angina Qualified Code(s): I25.10 - Atherosclerotic heart disease of [place] coronary artery without angina pectoris (5) Aortic stenosis Cardiac valve disease etiology: etiology unspecified Qualified Code(s): I35.0 - Nonrheumatic aortic (valve) stenosis
[2019-11-19] MEDS: CYANOCOBALAMIN 500 MCG TABLET (VITAMIN B-12) PO SCH (10:29)
[2019-11-19] MEDS: THIAMINE HCL 100 MG TAB PO SCH ×2 (10:29→21:17)
--- NOTE | 2019-11-19 10:35 | Electrocardiogram Report ---
Test Reason : Blood Pressure : / mmHG Vent. Rate : 062 BPM Atrial Rate : 062 BPM P-R Int : 306 ms QRS Dur : 156 ms QT Int : 470 ms P-R-T Axes : 018 -86 011 degrees QTc Int : 477 ms Sinus rhythm with 1st degree A-V block Right bundle branch block Left anterior fascicular block Bifascicular block Abnormal ECG When compared with ECG of 16-OCT-2018 17:06, Fusion complexes are no longer Present Premature ventricular complexes are no longer Present Right bundle branch block is now Present Confirmed by Ayden Little ([id number]) on 11/19/2019 10:34:51 AM Referred By: REFERRED SELF Confirmed By:Nahun Little
[2019-11-19] MEDS: ENOXAPARIN INJ 30 MG/0.3 ML SYR SQ SCH (17:17)
[2019-11-19] MEDS: TIMOLOL MALEATE 0.5% OP SOLN 5 ML BTL OPB SCH (21:19)
[2019-11-19] MEDS: BRIMONIDINE TARTRATE 0.2% 5ML OPB SCH (21:19)
[2019-11-19] MEDS: risperiDONE 1 MG TABLET PO SCH (21:21)
[2019-11-19] MEDS ORDERED: risperiDONE 1 MG TABLET PO STA (23:41)
[2019-11-20] MEDS ORDERED: HALOPERIDOL LACTATE 5 MG/ML 1 ML VIAL IM STA (01:26)
[2019-11-20] MEDS ORDERED: HALOPERIDOL LACTATE 5 MG/ML 1 ML VIAL ONE (01:37)
[2019-11-20] MEDS: LEVOTHYROXINE SODIUM 25 MCG TABLET PO SCH ×2 (06:15→08:57)
[2019-11-20] MEDS: prednisoLONE acetate 1% OP SUSP 5 ML BTL OP SCH ×2 (08:55→21:10)
[2019-11-20] MEDS: BRIMONIDINE TARTRATE 0.2% 5ML OPB SCH ×2 (08:55→21:10)
[2019-11-20] MEDS: TIMOLOL MALEATE 0.5% OP SOLN 5 ML BTL OPB SCH ×2 (08:56→21:10)
[2019-11-20] MEDS: DONEPEZIL HCL 5 MG TAB PO SCH (08:57)
[2019-11-20] MEDS: THIAMINE HCL 100 MG TAB PO SCH ×2 (08:57→21:11)
[2019-11-20] MEDS: ASPIRIN 81 MG ECTAB PO SCH (08:57)
[2019-11-20] MEDS: risperiDONE 0.5 MG TABLET PO SCH (08:57)
[2019-11-20] MEDS: ESCITALOPRAM OXALATE 20 MG TAB PO SCH (08:57)
[2019-11-20] MEDS: CYANOCOBALAMIN 500 MCG TABLET (VITAMIN B-12) PO SCH (08:57)
[2019-11-20] MEDS: POLYETHYLENE (MIRALAX) 17 GM PACK PO SCH (09:03)
--- NOTE | 2019-11-20 12:57 | Hospitalist Progress Note ---
Date of Service November 20, 2019 Assessment & Plan (1) Confusion: In the setting of known dementia. No obvious metabolic or infectious etiology for the acute encephalopathy although b12 level is low-normal and previous b1 level was undetectable. - Will supplement both B12 and thiamine. - Will continue Risperdal AM & PM. - Haldol PRN -> He was agitated last night and needed IM. (2) Dementia: agree with aricept 5mg initiated by admitting physician. cont lexapro and risperdal as previous. see "Confusion" above. I believe patient would be best served in a memory care facility (personal chcf that caters to individuals with dementia); however, daughter is working on 18/04 [employer] service instead. (3) Hypothyroidism: TSH within normal range at 3.93 Continue Synthroid (4) Depression: Affect full. Continue escitalopram 10 mg p.o. daily. (5) CAD (coronary artery disease): Chronic. Nonobstructive based on records. Should be on daily aspirin 81mg. Started by admitting MD - agree w/ such. (6) Aortic stenosis: Severe aortic stenosis. Patient has refused AVR in the past. No obvious symptoms from at this time. Given age & dementia, likely poor prospect for TAVR. (7) Gilbert syndrome: Chronic. Elevated T bili at 1.8 No Rx at this time (8) Thiamine deficiency: undetectable level in 2019 start thiamine 200mg BID x 30 days (9) Vitamin B12 deficiency: supplement 1000mcg daily could contribute to confusion/dementia/memory issues (10) DVT prophylaxis: lovenox 30mg daily Admission and Anticipated Discharge Date Admission Date: November 18, 2019 Subjective Denies any symptoms. No chest pain, no MSK pain, no shortness of breath. Reports no fevers/chills, chest pain, shortness of breath, abdominal pain, nausea, or vomiting. Physical Exam Constitutional: WD/WN, vitals as above Eyes: EOM intact bilaterally; no conjunctival abnormality ENMT: external ear and nose normal, oropharynx normal Neck: trachea midline, no thyromegaly normal visual inspection Respiratory: normal respiratory effort, lungs clear to auscultation no respiratory distress Cardiovascular: RRR, no murmur, no edema Gastrointestinal (Abdomen): Inspection/Auscultation: abdomen normal to inspection; abdomen not distended Musculoskeletal: no cyanosis or clubbing, extremities motor strength 5/5 Skin: no rashes, warm and dry Neurologic: moves all extremities and awake Psychiatric: Orientation: alert, oriented to person and cooperative; + not oriented to place and + not oriented to time PG Care Time/CCT Total # of Minutes Spent Total Time Spent with Patient: Total time spent is greater than 50% in coordination of care (as documented) at patient's floor/unit and/or counseling patient: Coding Level of Care Code 42058 Subseq Hosp Care Lvl 2 Diagnoses Confusion R41.0 Dementia F03.91 Dementia behavioral disturbance: with behavioral disturbance Dementia type: unspecified type Hypothyroidism E03.9 Hypothyroidism type: unspecified Depression F32.89 Depression Type: other depression CAD (coronary artery disease) I25.10 Coronary Disease-Associated Artery/Lesion type: unspecified vessel or l esion type [place] vs. transplanted heart: [place] heart Associated angina: without angina Aortic stenosis I35.0 Cardiac valve disease etiology: etiology unspecified Gilbert syndrome E80.4 Thiamine deficiency E51.9 Vitamin B12 deficiency E53.8 DVT prophylaxis Z29.9 (1) Dementia Dementia behavioral disturbance: with behavioral disturbance Dementia type: unspecified type Qualified Code(s): F03.91 - Unspecified dementia with behavioral disturbance (2) Hypothyroidism Hypothyroidism type: unspecified Qualified Code(s): E03.9 - Hypothyroidism, unspecified (3) Depression Depression Type: other depression Qualified Code(s): F32.89 - Other specified depressive episodes (4) CAD (coronary artery disease) Coronary Disease-Associated Artery/Lesion type: unspecified vessel or lesion type [place] vs. transplanted heart: [place] heart Associated angina: without angina Qualified Code(s): I25.10 - Atherosclerotic heart disease of [place] coronary artery without angina pectoris (5) Aortic stenosis Cardiac valve disease etiology: etiology unspecified Qualified Code(s): I35.0 - Nonrheumatic aortic (valve) stenosis
[2019-11-20] MEDS: ENOXAPARIN INJ 30 MG/0.3 ML SYR SQ SCH (17:53)
[2019-11-20] MEDS: risperiDONE 1 MG TABLET PO SCH (22:11)
[2019-11-21] MEDS: LEVOTHYROXINE SODIUM 25 MCG TABLET PO SCH (05:59)
[2019-11-21] MEDS: TIMOLOL MALEATE 0.5% OP SOLN 5 ML BTL OPB SCH ×2 (08:46→20:39)
[2019-11-21] MEDS: POLYETHYLENE (MIRALAX) 17 GM PACK PO SCH (08:47)
[2019-11-21] MEDS: CYANOCOBALAMIN 500 MCG TABLET (VITAMIN B-12) PO SCH (08:48)
[2019-11-21] MEDS: ESCITALOPRAM OXALATE 20 MG TAB PO SCH (08:48)
[2019-11-21] MEDS: risperiDONE 0.5 MG TABLET PO SCH (08:48)
[2019-11-21] MEDS: ASPIRIN 81 MG ECTAB PO SCH (08:48)
[2019-11-21] MEDS: DONEPEZIL HCL 5 MG TAB PO SCH (08:48)
[2019-11-21] MEDS: THIAMINE HCL 100 MG TAB PO SCH ×2 (08:48→20:40)
[2019-11-21] MEDS: BRIMONIDINE TARTRATE 0.2% 5ML OPB SCH ×2 (08:49→20:38)
[2019-11-21] MEDS: prednisoLONE acetate 1% OP SUSP 5 ML BTL OP SCH ×2 (08:53→20:39)
[2019-11-21 12:22] LABS: Calcium 9.9 mg/dl (8.5-10.1); Potassium 4.2 mmol/L (3.5-5.1); Troponin I 0.084 ng/ml (0-0.045)
[2019-11-21 12:43] LABS: Creatinine Clr Calc Pharmacy 34.9 ml/min; Est GFR (African American) 64.8; Est GFR (Non-African American) 55.9
[2019-11-21] MEDS: ENOXAPARIN INJ 30 MG/0.3 ML SYR SQ SCH (16:33)
--- NOTE | 2019-11-21 20:17 | Hospitalist Progress Note ---
Date of Service November 21, 2019 Assessment & Plan (1) Chest pain: Yesterday - self-resolved w/o intervention. Details of episode unknown due to his dementia. EKG yesterday w/o ischemic changes. Troponin is minimally elevated - I do not believe this represents ACS. Chest pain could be from CAD or from the severe . Will obtain echo to re-eval LV wall motion; also believe his will be critical at this point. This will be for prognosis only. monitor overnight. (2) Confusion: in the setting of known dementia. no obvious metabolic or infectious etiology for the acute encephalopathy although b12 level is low-normal and previous b1 level was undetectable. will supplement both. supportive care. cont risperdal. avoid benzos/sedatives. daughter by phone today reports that "my dad is doing better than yesterday" (with respect to mental status). (3) Dementia: agree with aricept 5mg initiated by admitting physician. Tolerating such thus far. cont lexapro and risperdal as previous. see "Confusion" above. dementia present 2-3 years - Alzheimer's? (4) Hypothyroidism: TSH within normal range at 3.93 Continue Synthroid (5) Depression: Affect full. Continue escitalopram 10 mg p.o. daily. (6) CAD (coronary artery disease): Chronic. Nonobstructive. 50% mid 1st diagonal branch stenosis seen on cath in 2013. Should be on daily aspirin 81mg. Started by admitting MD - agree w/ such. (7) Aortic stenosis: Severe aortic stenosis. Patient has refused AVR in the past multiple times. Chest pain 2nd to ? s2 is difficult to hear on exam suggesting critical . echo pending for prognostic/planning purposes. (8) Gilbert syndrome: Chronic. Elevated T bili at 1.8 No Rx at this time (9) Thiamine deficiency: undetectable level in 2019 start thiamine 200mg BID x 30 days (10) Vitamin B12 deficiency: supplement 1000mcg daily could contribute to confusion/dementia/memory issues (11) DVT prophylaxis: lovenox 30mg daily daughter extensively updated by phone on 11/19/19 and 11/21/19 Admission and Anticipated Discharge Date Admission Date: November 18, 2019 Subjective by report patient had episode of chest discomfort yesterday afternoon EKG was obtained - no changes from prior EKG when I asked him about the episode yesterday he said "I don't remember" when asked how he was doing today he stated "I'm doing ok" staff report no issues Review of Systems Respiratory: no cough, no dyspnea and no dyspnea on exertion Cardiovascular: as per Subjective / HPI and + chest pain; no orthopnea and no paroxysmal nocturnal dyspnea Gastrointestinal: no abdominal pain Physical Exam Constitutional: well developed, well nourished and + altered mental status (cannot tell me the year); no acute distress ENMT: external ear and nose normal, oropharynx normal Respiratory: normal respiratory effort, lungs clear to auscultation Cardiovascular: Rate/Rhythm: regular rate and regular rhythm Heart Sounds: normal S1, normal S2 and + murmur (3/6 RUSB - holosystolic) Vessels: posterior tibial pulses present and dorsalis pedis pulses present; no JVD Extremities: no edema Gastrointestinal (Abdomen): normal bowel sounds, soft, nontender, no hepatosplenomegaly Psychiatric: Orientation: alert, oriented to person, oriented to place and cooperative; + not oriented to time Affect: euthymic affect Results & Data ([facility]) Vital Signs (Past 12 Hours) Vital Signs Temp Pulse Resp BP BP Pulse Ox 11/21/19 15:30 36.6 C 73 18 143/58 H 99 11/21/19 14:08 36.4 C L 56 L 147/85 H 96 Laboratory Results Laboratory Results - last 24 hr 11/21/19 11/21/19 10:38 15:11 Sodium 138 Potassium 4.2 Chloride 107 Carbon Dioxide 26 Anion Gap 5.0 BUN 29 H Creatinine 1.16 Est Cr Clr Drug Dosing 34.9 Est GFR ( Amer) 64.8 Est GFR (Non-Af Amer) 55.9 BUN/Creatinine Ratio 25.0 H Glucose 101 H Calcium 9.9 Troponin I 0.084 H* 0.086 H* PG Care Time/CCT Total # of Minutes Spent Total Time Spent with Patient: Total time spent is greater than 50% in coordination of care (as documented) at patient's floor/unit and/or counseling patient: Coding Level of Care Code 70792 Subseq Hosp Care Lvl 2 Diagnoses Chest pain R07.9 Chest pain type: unspecified Confusion R41.0 Dementia F03.91 Dementia behavioral disturbance: with behavioral disturbance Dementia type: unspecified type Hypothyroidism E03.9 Hypothyroidism type: unspecified Depression F32.89 Depression Type: other depression CAD (coronary artery disease) I25.10 Associated angina: without angina Coronary Disease-Associated Artery/Lesion type: unspecified vessel or lesion type [place] vs. transplanted heart: [place] heart Aortic stenosis I35.0 Cardiac valve disease etiology: etiology unspecified Gilbert syndrome E80.4 Thiamine deficiency E51.9 Vitamin B12 deficiency E53.8 DVT prophylaxis Z29.9 (1) CAD (coronary artery disease) Associated angina: without angina Coronary Disease-Associated Artery/Lesion t ype: unspecified vessel or lesion type [place] vs. transplanted heart: [place] heart Qualified Code(s): I25.10 - Atherosclerotic heart disease of [place] coronary artery without angina pectoris (2) Aortic stenosis Cardiac valve disease etiology: etiology unspecified Qualified Code(s): I35.0 - Nonrheumatic aortic (valve) stenosis (3) Dementia Dementia behavioral disturbance: with behavioral disturbance Dementia type: unspecified type Qualified Code(s): F03.91 - Unspecified dementia with behavioral disturbance (4) Depression Depression Type: other depression Qualified Code(s): F32.89 - Other specified depressive episodes (5) Hypothyroidism Hypothyroidism type: unspecified Qualified Code(s): E03.9 - Hypothyroidism, unspecified (6) Chest pain Chest pain type: unspecified Qualified Code(s): R07.9 - Chest pain, unspecified
[2019-11-21] MEDS: risperiDONE 1 MG TABLET PO SCH (20:40)
[2019-11-22] MEDS: LEVOTHYROXINE SODIUM 25 MCG TABLET PO SCH (05:38)
[2019-11-22] MEDS: CYANOCOBALAMIN 500 MCG TABLET (VITAMIN B-12) PO SCH (09:22)
[2019-11-22] MEDS: ESCITALOPRAM OXALATE 20 MG TAB PO SCH (09:22)
[2019-11-22] MEDS: ASPIRIN 81 MG ECTAB PO SCH (09:22)
[2019-11-22] MEDS: DONEPEZIL HCL 5 MG TAB PO SCH (09:22)
[2019-11-22] MEDS: THIAMINE HCL 100 MG TAB PO SCH ×2 (09:23→22:08)
[2019-11-22] MEDS: risperiDONE 0.5 MG TABLET PO SCH (09:23)
[2019-11-22] MEDS: prednisoLONE acetate 1% OP SUSP 5 ML BTL OP SCH ×2 (09:23→22:07)
[2019-11-22] MEDS: BRIMONIDINE TARTRATE 0.2% 5ML OPB SCH ×2 (09:24→22:07)
[2019-11-22] MEDS: TIMOLOL MALEATE 0.5% OP SOLN 5 ML BTL OPB SCH ×2 (09:24→22:08)
[2019-11-22] MEDS: POLYETHYLENE (MIRALAX) 17 GM PACK PO SCH (09:27)
--- NOTE | 2019-11-22 16:20 | XCELERA ---
[id number]
[2019-11-22] MEDS: ENOXAPARIN INJ 30 MG/0.3 ML SYR SQ SCH ×2 (17:22→17:26)
--- NOTE | 2019-11-22 18:54 | Electrocardiogram Report ---
Test Reason : Blood Pressure : / mmHG Vent. Rate : 063 BPM Atrial Rate : 063 BPM P-R Int : 296 ms QRS Dur : 178 ms QT Int : 492 ms P-R-T Axes : 041 -82 046 degrees QTc Int : 503 ms Sinus rhythm with 1st degree A-V block Right bundle branch block Left anterior fascicular block Bifascicular block Voltage criteria for left ventricular hypertrophy Abnormal ECG Confirmed by Ayden Little ([id number]) on 11/22/2019 6:53:57 PM Referred By: REFERRED SELF Confirmed By:Nahun Little
--- NOTE | 2019-11-22 20:15 | Hospitalist Progress Note ---
Date of Service November 22, 2019 Assessment & Plan (1) Chest pain: Fleeting episode 2 days ago. Details of event (how long, location, etc) uncertain and due to pt's dementia he does not recall the event. EKG unchanged and w/o ischemic changes. Troponin scantly elevated (checked the following day after episode). I do not believe he had an ACS. largely unchanged from prior echo. Cannot say if pain was cardiac or non-cardiac. If cardiac his can cause pain; his CAD could cause. For now would treat conservatively and simply monitor. (2) Confusion: in the setting of known dementia. no obvious metabolic or infectious etiology for the acute encephalopathy although b12 level is low-normal and previous b1 level was undetectable. supplementing both. supportive care. cont risperdal. avoid benzos/sedatives. (3) Dementia: cont aricept 5mg initiated by admitting physician. Tolerating such thus far. cont lexapro and risperdal as previous. see "Confusion" above. dementia present 2-3 years - Alzheimer's? (4) Hypothyroidism: TSH within normal range at 3.93 Continue Synthroid (5) Depression: Continue escitalopram 10 mg p.o. daily. (6) CAD (coronary artery disease): Chronic. Nonobstructive. 50% mid 1st diagonal branch stenosis seen on cath in 2014. Should be on daily aspirin 81mg. Started by admitting MD - agree w/ such. see "chest pain" above. (7) Aortic stenosis: Mod-Severe aortic stenosis. Patient has refused AVR in the past multiple times. Chest pain 2nd to ? ECHO results reviewed; minimal progression of since prior echo. (8) Gilbert syndrome: Chronic. Elevated T bili at 1.8 No Rx at this time (9) Thiamine deficiency: undetectable level in 2019 start thiamine 200mg BID x 30 days (10) Vitamin B12 deficiency: supplement 1000mcg daily could contribute to confusion/dementia/memory issues (11) DVT prophylaxis: lovenox 30mg daily daughter extensively updated by phone on 11/19/19 and 11/21/19 d/c to [facility] in am Admission and Anticipated Discharge Date Admission Date: November 18, 2019 Anticipated date of discharge: 11/23/19 Subjective no events overnight patient standing in room upon my arrival he was watching the snow outside no issues per staff patient stated "he felt fine" when I asked him how he was doing Review of Systems Review of Systems: Unobtainable due to cognitive status Physical Exam Constitutional: well developed and well nourished; no acute distress ENMT: external ear and nose normal, oropharynx normal Respiratory: normal respiratory effort, lungs clear to auscultation Cardiovascular: Rate/Rhythm: regular rate and regular rhythm Heart Sounds: normal S1, normal S2 and + murmur (3/6 RUSB - holosystolic) Vessels: posterior tibial pulses present and dorsalis pedis pulses present; no JVD Extremities: no edema Gastrointestinal (Abdomen): normal bowel sounds, soft, nontender, no hepatosplenomegaly Psychiatric: Orientation: alert and oriented to person; + not oriented to place and + not oriented to time Affect: + blunted affect Results & Data ([facility]) Vital Signs (Past 12 Hours) Vital Signs Temp Pulse Resp BP Pulse Ox 11/22/19 15:55 36.3 C L 86 24 154/91 H 95 Diagnostic Findings echo - LV function intact; normal LV wall motion. mod-severe - minimally progressive relative to prior echo. PG Care Time/CCT Total # of Minutes Spent Total Time Spent with Patient: Total time spent is greater than 50% in coordination of care (as documented) at patient's floor/unit and/or counseling patient: Coding Level of Care Code 68973 Subseq Hosp Care Lvl 2 Diagnoses Chest pain R07.9 Chest pain type: unspecified Confusion R41.0 Dementia F03.91 Dementia behavioral disturbance: with behavioral disturbance Dementia type: unspecified type Hypothyroidism E03.9 Hypothyroidism type: unspecified Depression F32.89 Depression Type: other depression CAD (coronary artery disease) I25.10 Associated angina: without angina Coronary Disease-Associated Artery/Lesion type: unspecified vessel or lesion type [place] vs. transplanted heart: [place] heart Aortic stenosis I35.0 Cardiac valve disease etiology: etiology unspecified Gilbert syndrome E80.4 Thiamine deficiency E51.9 Vitamin B12 deficiency E53.8 DVT prophylaxis Z29.9 (1) CAD (coronary artery disease) Associated angina: without angina Coronary Disease-Associated Artery/Lesion type: unspecified vessel or lesion type [place] vs. transplanted heart: [place] heart Qualified Code(s): I25.10 - Atherosclerotic heart disease of [place] co ronary artery without angina pectoris (2) Aortic stenosis Cardiac valve disease etiology: etiology unspecified Qualified Code(s): I35.0 - Nonrheumatic aortic (valve) stenosis (3) Dementia Dementia behavioral disturbance: with behavioral disturbance Dementia type: unspecified type Qualified Code(s): F03.91 - Unspecified dementia with behavioral disturbance (4) Depression Depression Type: other depression Qualified Code(s): F32.89 - Other specified depressive episodes (5) Hypothyroidism Hypothyroidism type: unspecified Qualified Code(s): E03.9 - Hypothyroidism, unspecified (6) Chest pain Chest pain type: unspecified Qualified Code(s): R07.9 - Chest pain, unspecified
[2019-11-22] MEDS: risperiDONE 1 MG TABLET PO SCH (22:08)
[2019-11-23] MEDS: LEVOTHYROXINE SODIUM 25 MCG TABLET PO SCH (06:16)
[2019-11-23] MEDS: CYANOCOBALAMIN 500 MCG TABLET (VITAMIN B-12) PO SCH (08:11)
[2019-11-23] MEDS: DONEPEZIL HCL 5 MG TAB PO SCH (08:11)
[2019-11-23] MEDS: THIAMINE HCL 100 MG TAB PO SCH (08:11)
[2019-11-23] MEDS: ASPIRIN 81 MG ECTAB PO SCH (08:12)
[2019-11-23] MEDS: ESCITALOPRAM OXALATE 20 MG TAB PO SCH (08:12)
[2019-11-23] MEDS: risperiDONE 0.5 MG TABLET PO SCH (08:13)
[2019-11-23] MEDS: TIMOLOL MALEATE 0.5% OP SOLN 5 ML BTL OPB SCH (08:13)
[2019-11-23] MEDS: BRIMONIDINE TARTRATE 0.2% 5ML OPB SCH (08:13)
[2019-11-23] MEDS: prednisoLONE acetate 1% OP SUSP 5 ML BTL OP SCH (08:14)
[2019-11-23] MEDS: POLYETHYLENE (MIRALAX) 17 GM PACK PO SCH (08:15)
--- NOTE | 2019-11-23 13:52 | Discharge Summary ---
Date of Service date of admission - November 18, 2019 date of discharge - November 23, 2019 Admission HPI Per Admitting Provider Mr. Parker is an 89yo [place] male with history of CAD, Dementia, Hypothyroidism presenting with his daughter with increased AMS. Majority of history obtained from daughter. She reports that his mental status has been declining since August 2018, she believes it started after a prolonged hospitalization. Since then, he has had a progressive cognitive decline. She reports episodes of disorientation, occasional agitation. At times he is unfamiliar with who she is and thinks she is his recently or mother. She states that he is constantly trying to take a cab or a train to [place]. She reports that at times he will call her 10-20 times a day. Last Tuesday the patient was picked up by police outside of his home wandering the [employer], trying to get a ride to the train station so he can take a train to [place]. Patient ambulates independently but daughter reports that he walks slowly and sometimes is unsteady on his feet. She denies fever/chills. Patient has no complaints of chest pain/shortness of breath/palpitation/abdominal pain/nausea/vomiting/diarrhea/constipation. She reports that he eats well at home. She is concerned that he does not do anything with his time at home (does not watch TV, play games or read). She presents today because she is concerned that her father is not safe in his home. She was requesting evaluation for brief rehab stay. Of note, they are part of the waiver program and plan to keep the patient in his home for as long as possible. They have home health aides that come twice daily for several hours. Daughter has recently placed request to increase the number of hours the aides come (requested 30 hours/week). Principal Diagnosis progressive dementia Discharge Exam Constitutional well developed and well nourished; no acute distress ENMT external ear and nose normal, oropharynx normal Respiratory normal respiratory effort, lungs clear to auscultation Cardiovascular Rate/Rhythm: regular rate and regular rhythm Heart Sounds: normal S1, normal S2 and + murmur (3/6 RUSB - holosystolic) Vessels: posterior tibial pulses present and dorsalis pedis pulses present; no JVD Extremities: no edema Gastrointestinal (Abdomen) normal bowel sounds, soft, nontender, no hepatosplenomegaly Neurologic mildly stooped posture; shuffling gait Psychiatric Orientation: alert and oriented to person; + not oriented to place and + not oriented to time Affect: + blunted affect Discharge Data Allergies Allergy/AdvReac Type Severity Reaction Status Date / Time amlodipine Allergy Unknown Swelling Verified 11/18/19 14:27 of Lip/Tongue/Throat gabapentin Allergy Unknown Verified 11/18/19 14:27 hydrochlorothiazide Allergy Unknown Verified 11/18/19 14:27 enalapril AdvReac Unknown Cough Verified 11/18/19 14:27 Sulfa (Sulfonamide AdvReac Unknown JUST Verified 11/18/19 14:27 Antibiotics) DIDN'T FEEL LIKE HIMSELF Consultations PT, OT Procedures Performed CT head - no acute process. Echocardiogram - * EF 50-55% * moderate basal posterior hypokinesis * mod-severe aortic stenosis - slightly worse than previous echo Hospital Course (1) Dementia: According to the patient's daughter his dementia has been present for 2-3 years if not longer. The dementia has been progressive. He was initiated on aricept 5mg during this visit and tolerated such without side effects. Continue lexapro and risperdal as previous. (2) Confusion: In the setting of known dementia. There was no obvious metabolic or infectious etiology for the acute encephalopathy while hospitalized although b12 level was low-normal and previous b1 level was undetectable. supplemented both while here and he will continue on supplementation post-d/c. He was continued on risperdal during the visit. He had no behavioral disturbance while hospitalized. (3) Chest pain: Fleeting episode about 2 days prior to discharge. Details of event (how long, location, etc) were uncertain due to the pt's dementia. EKG unchanged and w/o ischemic changes. Troponin scantly elevated. I do not believe he had an ACS. Cannot say if pain was cardiac or non-cardiac. If cardiac his can cause pain as well as his CAD. Either way his echo was stable and he did not have recurrent pain while here. (4) Hypothyroidism: TSH within normal range at 3.93 Continue Synthroid (5) Depression: Continue escitalopram 10 mg p.o. daily. (6) CAD (coronary artery disease): Chronic. Nonobstructive. 50% mid 1st diagonal branch stenosis seen on cath in 2013. Initiated on daily aspirin 81mg daily. (7) Aortic stenosis: Mod-Severe aortic stenosis. Patient has refused AVR in the past multiple times. Chest pain 2nd to ? ECHO results reviewed; minimal progression of since prior echo. (8) Gilbert syndrome: Chronic. Elevated T bili at 1.8 No Rx needed (9) Thiamine deficiency: undetectable level in 2019 started thiamine 200mg BID x 30 days (10) Vitamin B12 deficiency: B12 level was 295. supplement 1000mcg daily of vitamin B12 daily. could contribute to confusion/dementia/memory issues. Total Time Total Time Spent Total Time Spent (In Minutes): 45 Total Time Includes: Examination of the Patient, Discharge Planning and Medication Reconciliation Discharge Plan Discharge Items Patient Disposition: Transfer Residential Fac Reason For Visit: CONFUSION Discharge Diagnosis: 1. confusion due to progressive dementia 2. severe aortic stenosis - no plans for operative management 3. history of thiamine deficiency 4. b12 deficiency Activity: Resume your previous activity Non-emergency contact: Primary Care Provider Call non-emergency contact if: you have any medication questions Follow-up/Referrals: Wander Morrow MD [Primary Care Provider] - Diet: Heart Healthy Diet Texture: Dental soft (bite-sized) Addtl Attending Provider Instructions: Mr Parker has progressive dementia. He was brought to the hospital after being found outside his home wandering and confused. His confusion was likely due to the dementia itself. No infections were found while here. No metabolic derangements were found while here. He does have mild vitamin B12 deficiency which can worsen memory. Thus, recommend 1000mcg of vitamin B12 daily for 1 year. In 2019 he was severely deficiency on thiamine (vitamin B1). This, too, can affect memory. Thus, recommend thiamine 200mg twice daily for 1 month then can stop. Mr Parker does have severe aortic stenosis. Operative management will not be pursued in the future according to his wishes. At this time it does not appear he is having symptoms from the aortic stenosis. Lastly, he had an episode of chest pain while hospitalized. It was uncertain if the pain was cardiac/heart-related. He does have known coronary artery disease, however. He has nitroglycerin SL on his medication profile, if needed. Follow-up -- see medical pathology teacher of SNF within 2-3 days In light of advanced dementia and severe aortic stenosis please ORDER palliative care consultation upon admission to [facility]. Pending Studies at Discharge: No Stand-Alone Forms: My [facility] Skilled Items Patient informed of condition?: Yes DNR: Yes Discharge Level of Care: Skilled Communicable Disease: No Discharge Prognosis: Stable Lines: None Urinary Catheter: No Medications and DC Order Prescriptions: New donepezil 5 mg Tablet 5 mg PO QAM Qty: 30 RF: 5 thiamine HCl (vitamin B1) [Vitamin B-1] 100 mg Tablet 200 mg PO BID 30 Days Qty: 120 RF: 0 aspirin 81 mg Tablet,Delayed Release (Dr/Ec) 81 mg PO DAILY Qty: 90 RF: 3 cyanocobalamin (vitamin B-12) 500 mcg Tablet 1,000 mcg PO QAM Qty: 60 RF: 11 Continued levothyroxine 25 mcg tablet 25 mcg PO DAILY Qty: 90 RF: 1 fluocinonide 0.05 % solution 1 appln topical BID Qty: 1 RF: 0 polyethylene glycol 3350 17 gram/dose powder 17 gm PO DAILY RF: 0 nitroglycerin 0.4 mg tablet, sublingual 0.4 mg SL Q5M PRN (Reason: chest pain) Qty: 15 RF: 0 risperidone 0.5 mg tablet 1 mg PO QPM RF: 0 escitalopram oxalate 20 mg tablet 20 mg PO DAILY RF: 0 melatonin 5 mg Tablet 5 mg PO HS PRN (Reason: Sleep) RF: 0 risperidone 0.5 mg tablet 0.5 mg PO QAM RF: 0 prednisolone acetate 1 % drops,suspension 1 drp OPB BID RF: 0 brimonidine-timolol 0.2-0.5 % drops 1 drp OPB BID RF: 0 Discharge Orders: Discharge Order (Routine); Ordered 11/23/19 Ordered By: Peter Carroll Admission Data Admit Date/Time: 11/18/19 15:22 Attending Provider: Peter Carroll Admit Provider: Tabitha Dubois Primary Care Provider: Wander Morrow V. Other Interventions: Discharge Summary Assessment (RN) Last Done: 11/23/19 13:37 DC Date/Time DO NOT enter until pt leaves facility: 11/23/19 16:38 Coding Level of Care Code D/C Day Management >30 mins Diagnoses Dementia F03.91 Dementia behavioral disturbance: with behavioral disturbance Dementia type: unspecified type Confusion R41.0 Chest pain R07.9 Chest pain type: unspecified Hypothyroidism E03.9 Hypothyroidism type: unspecified Depression F32.89 Depression Type: other depression CAD (coronary artery disease) I25.10 Associated angina: without angina Coronary Disease-Associated Artery/Lesion type: unspecified vessel or lesion type [place] vs. transplanted heart: [place] heart Aortic stenosis I35.0 Cardiac valve disease etiology: etiology unspecified Gilbert syndrome E80.4 Thiamine deficiency E51.9 Vitamin B12 deficiency E53.8
== END 2019-11-23 16:38 | DRG 57 ==
LOC: ED 12:28 → 4W 15:22 → SUATTDRO 15:22 → 4W 15:45
DX: Z91.83 Wandering in diseases classified elsewhere; H40.9 Unspecified glaucoma; Z79.899 Other long term (current) drug therapy; R07.9 Chest pain, unspecified; G30.9 Alzheimer's disease, unspecified; E03.9 Hypothyroidism, unspecified; E53.8 Deficiency of other specified B group vitamins; E51.9 Thiamine deficiency, unspecified; Z88.2 Allergy status to sulfonamides; I25.10 Atherosclerotic heart disease of native coronary artery without angina pectoris; Z51.81 Encounter for therapeutic drug level monitoring; G93.40 Encephalopathy, unspecified; I25.2 Old myocardial infarction; E80.4 Gilbert syndrome; Z66 Do not resuscitate; I35.0 Nonrheumatic aortic (valve) stenosis; Z88.8 Allergy status to other drugs, medicaments and biological substances; I45.2 Bifascicular block; F02.81 Dementia in other diseases classified elsewhere, unspecified severity, with behavioral disturbance; I10 Essential (primary) hypertension; Z60.2 Problems related to living alone; F32.9 Major depressive disorder, single episode, unspecified